=== PATIENT | female | born 1955 | race Asian ===

== ENCOUNTER 2021-08-05 07:08 | Outpatient (REF) | payer MEDICARE, SELFPAY ==
[2021-08-05 07:29] LABS: MANUAL DIFF FLAG NO
[2021-08-05 08:07] LABS: Basophils Percent Auto 0.7 % (0-2); Eosinophils Absolute Auto 0.1 X10*3/uL (0.0-0.4); Eosinophils Percent Auto 1.8 % (0-4); Hematocrit 38.2 % (37.0-47.0); Hemoglobin 12.4 g/dl (12.0-16.0); Imm Gran Abs Auto 0.01 X10*3/uL (0.00-0.03); Imm Gran Pct Auto 0.2 % (0.0-0.4); Lymphocytes Percent Auto 44.1 % (20-40); Mean Corpuscular HGB Conc 32.5 g/dl (31.0-35.0); Mean Corpuscular Hemoglobin 30.9 pg (27.0-33.0); Mean Corpuscular Volume 95.3 fL (80.0-98.0); Mean Platelet Volume 9.8 fL (9.4-12.3); Monocytes Absolute Auto 0.5 X10*3/uL (0.1-1.2); Monocytes Percent Auto 10.7 % (2-11); Neutrophils Absolute Auto 1.9 x10*3/uL (2.0-8.3); Neutrophils Percent Auto 42.5 % (45-73); Platelet Count 241 X10*3/uL (160-400); Red Blood Count 4.01 X10*6/uL (4.20-5.50); White Blood Count 4.6 X10*3/uL (4.8-10.8)
[2021-08-05 08:15] LABS: Appearance Urine CLEAR; Color Urine YELLOW; Glucose Urine UA NEG (NEG); Leukocyte Esterase Urine NEG (NEG); Nitrite Urine NEG (NEG); Specific Gravity - Urine <= 1.005 (1.005-1.025); UACC Culture Trigger NO; Urine Blood 1+ (NEG); Urine Ketones NEG (NEG); Urine Protein NEG (NEG-TRACE)
[2021-08-05 08:38] LABS: Alanine Aminotransferase 21 U/L (0-31); Albumin Level 4.2 g/dL (3.5-5.0); Alkaline Phosphatase 67 U/L (39-117); Anion Gap 12 (12-20); Aspartate Amino Transferase 28 U/L (5-31); Bilirubin Total 0.5 mg/dL (0.0-1.0); Blood Urea Nitrogen 16 mg/dL (9-16); Calcium 9.7 mg/dL (8.4-10.2); Carbon Dioxide 27 mmol/L (22-29); Chloride 104 mmol/L (96-108); Cholesterol 177 mg/dL; Estimated Glomerular Filt Rate 58; Glucose Fasting 105 mg/dL (60-99); HDL Cholesterol 61 mg/dL; LDL Cholesterol Calculated 101 mg/dl; Potassium 4.2 mmol/L (3.3-5.1); Sodium 139 mmol/L (135-145); Total Protein 7.3 g/dL (6.5-8.0); Triglycerides 76 mg/dL
[2021-08-05 08:41] LABS: Bacteria Urine TRACE /LPF; WBC Urine 0-2 /HPF (0-4)
[2021-08-05 09:01] LABS: TSH reflex Free T4 3.11 uIU/mL (0.32-4.0); Vitamin D 25-OH Total 50.3 ng/mL (>30)
== END 2021-08-05 07:09 | disposition home or self-care (01) ==
LOC: HO.LAB 07:08
PROVIDERS: PCP Internal Medicine; Visit Provider Internal Medicine
DX: E78.00 Pure hypercholesterolemia, unspecified (principal); E55.9 Vitamin D deficiency, unspecified; I10 Essential (primary) hypertension
CPT/HCPCS: 36415; 80053; 80061; 81001; 81003; 82306; 84443; 85025

== ENCOUNTER 2021-10-15 12:45 | Outpatient (REF) | payer MEDICARE, SELFPAY ==
--- NOTE | ~2021-10-15 | MM_ITS ---
EXAMINATION: MM SCREENING DIGITAL BREAST TOMOSYNTHESIS, BILATERAL CLINICAL INFORMATION: Screening. Asymptomatic. The lifetime risk of breast cancer based on the Tyrer-Cuzick Model is 3%. COMPARISON: Mammography: 02/02/2019, 01/23/2018, 11/19/2016 TECHNIQUE: Digital breast tomosynthesis is performed in both the craniocaudal and mediolateral oblique views along with computer-aided detection (CAD). Synthesized 2D images are generated from the tomosynthesis. FINDINGS: There are scattered areas of fibroglandular density (ACR BI-RADS breast composition Category b). There are no significant masses, abnormal calcifications, or other abnormalities. Parenchymal pattern is similar to prior studies. The axilla are unremarkable. No significant changes. MM/MM tomosynthesis screening BI IMPRESSION: No mammographic evidence of malignancy. ASSESSMENT: BI-RADS 1: Negative RECOMMENDATION: Routine annual mammography screening. This patient's information was entered into a reminder system with a target due date for their next mammogram.
--- NOTE | ~2021-10-15 | MM_ITS ---
EXAMINATION: BONE DENSITOMETRY CLINICAL INDICATION: Osteoporosis. COMPARISON: Previous BD dated 09/24/2018 and baseline BD dated 02/12/2007. TECHNIQUE: Using a [employer] DXA System (software version: 13.1) manufactured by [employer], dual-energy x-ray absorptiometry was performed of the lumbar spine and left hip. The images are of good technical quality. Summary results are attached. FINDINGS: AP SPINE L1-L3 (excluding L4): The data of L1-L4 has been changed to exclude the L4 vertebral body, because degenerative changes at this level may cause overestimation of lumbar spine density. Current: BMD 0.836 g/cm2, Z-score -0.7, T-score -2.8, osteoporosis, 8.1% decrease from previous, 0.2% increase from baseline (<5% change is not significant). Prior: BMD 0.910 g/cm2. Baseline: BMD 0.834 g/cm2. LEFT FEMUR, NECK: Current: BMD 0.760 g/cm2, Z-score -0.2, T-score -2.0, osteopenia. Prior: BMD 0.750 g/cm2. Baseline: BMD 0.776 g/cm2. LEFT FEMUR, TOTAL: Current: BMD 0.852 g/cm2, Z-score 0.4, T-score -1.2, osteopenia, 1.3% decrease from previous, 0.8% decrease from baseline (<5% change is not significant). Prior: BMD 0.863 g/cm2. Baseline: BMD 0.859 g/cm2. IDENTIFIED RISK FACTORS: Menopause, osteoporosis. HISTORY OF FRACTURE: None listed. MEDICATIONS: Calcium, vitamin D. MM/XR DEXA axial skeleton IMPRESSION: 1. DIAGNOSIS: Osteoporosis based on the lowest T-score value of -2.8 in the lumbar spine applying World Health Organization criteria. 2. 10-YEAR FRACTURE RISK PREDICTION, FRAX: According to the guidelines, FRAX calculation should only be performed on patients in the osteopenia bone density category. Therefore, FRAX was not performed on this patient. 3. Treatment Recommendations: NOF guidelines recommend consideration for treatment in postmenopausal women and men age 50 and older presenting with the following: -A hip or vertebral (clinical or morphometric) fracture. -T-score less than or equal to -2.5 at the femoral neck or spine after appropriate evaluation to exclude secondary causes. -Low bone mass at the hip or spine and a 10-year fracture probability by FRAX of greater than or equal to 3% for hip fracture or greater than or equal to 20% for major osteoporotic fracture based on the [place] adapted WHO algorithm. 4. Other Recommendations: All treatment decisions require clinical judgment and consideration of individual patient factors, including patient preferences, comorbidities, previous drug use, risk factors not captured in the FRAX model (e.g. frailty, falls, vitamin D deficiency, increased bone turnover, interval significant decline in bone density) and possible under or overestimation of fracture risk by FRAX. Additional medical evaluation for secondary cause of low bone mineral density may be appropriate. FUTURE SCAN RECOMMENDATION: People with diagnosed cases of osteoporosis or at high risk for fracture should have regular bone mineral density tests. For patients eligible for Medicare, routine testing is allowed once every 2 years. The testing frequency can be increased to one year for patients who have rapidly progressing disease, those who are receiving or discontinuing medical therapy to restore bone mass, or have additional risk factors.
== END 2021-10-15 12:46 | disposition home or self-care (01) ==
LOC: HO.MAMMO 12:45
PROVIDERS: Visit Provider Internal Medicine
DX: Z12.31 Encounter for screening mammogram for malignant neoplasm of breast (principal); M81.0 Age-related osteoporosis without current pathological fracture; Z78.0 Asymptomatic menopausal state
CPT/HCPCS: 77063; 77067; 77080

== ENCOUNTER 2021-12-28 09:07 | Outpatient (REF) | payer MEDICARE, SELFPAY ==
[2021-12-28 09:29] LABS: MANUAL DIFF FLAG NO
[2021-12-28 09:38] LABS: Basophils Percent Auto 0.8 % (0-2); Eosinophils Absolute Auto 0.1 X10*3/uL (0.0-0.4); Eosinophils Percent Auto 2.3 % (0-4); Hematocrit 38.4 % (37.0-47.0); Hemoglobin 12.9 g/dl (12.0-16.0); Imm Gran Abs Auto 0.01 X10*3/uL (0.00-0.03); Imm Gran Pct Auto 0.3 % (0.0-0.4); Lymphocytes Absolute Auto 1.8 X10*3/uL (1.2-4.9); Lymphocytes Percent Auto 45.2 % (20-40); Mean Corpuscular HGB Conc 33.6 g/dl (31.0-35.0); Mean Corpuscular Hemoglobin 31.5 pg (27.0-33.0); Mean Corpuscular Volume 93.9 fL (80.0-98.0); Mean Platelet Volume 9.2 fL (9.4-12.3); Monocytes Absolute Auto 0.3 X10*3/uL (0.1-1.2); Monocytes Percent Auto 7.6 % (2-11); Neutrophils Absolute Auto 1.7 x10*3/uL (2.0-8.3); Neutrophils Percent Auto 43.8 % (45-73); Platelet Count 275 X10*3/uL (160-400); Red Blood Count 4.09 X10*6/uL (4.20-5.50); Red Cell Distribution Width 11.9 % (11.0-16.0); White Blood Count 3.9 X10*3/uL (4.8-10.8)
[2021-12-28 10:11] LABS: Appearance Urine Clear; Color Urine Yellow; Glucose Urine UA Negative (Negative); Leukocyte Esterase Urine Negative (Negative); Nitrite Urine Negative (Negative); Urine Blood Trace (Negative); Urine Ketones Negative (Negative); Urine Protein Negative (Neg-Trace)
[2021-12-28 10:17] LABS: Bacteria Urine None Seen (None Seen); Hyaline Casts Urine 0-2 /LPF (0-2); Squamous Epithelial Cell Urine 0-2 /HPF (0-2); WBC Urine 0-5 /HPF (0-5)
[2021-12-28 10:27] LABS: Estimated Average Glucose 117 mg/dL; Hemoglobin A1c % 5.7 %
[2021-12-28 10:30] LABS: Alanine Aminotransferase 19 U/L (0-31); Albumin Level 4.7 g/dL (3.5-5.0); Alkaline Phosphatase 69 U/L (39-117); Anion Gap 16 (12-20); Aspartate Amino Transferase 28 U/L (5-31); Bilirubin Total 0.5 mg/dL (0.0-1.0); Blood Urea Nitrogen 16 mg/dL (9-16); Calcium 9.6 mg/dL (8.4-10.2); Carbon Dioxide 27 mmol/L (22-29); Chloride 103 mmol/L (96-108); Cholesterol 189 mg/dL; Estimated Glomerular Filt Rate 57; Glucose Fasting 112 mg/dL (60-99); HDL Cholesterol 71 mg/dL; LDL Cholesterol Calculated 105 mg/dl; Sodium 142 mmol/L (135-145); Total Protein 8.1 g/dL (6.5-8.0); Triglycerides 65 mg/dL
[2021-12-28 11:10] LABS: TSH reflex Free T4 2.55 uIU/mL (0.32-4.0); Vitamin D 25-OH Total 64.8 ng/mL (>30)
== END 2021-12-28 09:08 | disposition home or self-care (01) ==
LOC: HO.LAB 09:07
PROVIDERS: PCP Internal Medicine; Visit Provider Internal Medicine
DX: Z00.00 Encounter for general adult medical examination without abnormal findings (principal); E55.9 Vitamin D deficiency, unspecified; M81.0 Age-related osteoporosis without current pathological fracture; E78.00 Pure hypercholesterolemia, unspecified; R73.01 Impaired fasting glucose
CPT/HCPCS: 36415; 80053; 80061; 81001; 81003; 82306; 83036; 84443; 85025

== ENCOUNTER 2022-03-31 | Outpatient (REF) | payer MEDICARE, SELFPAY ==
[2022-04-01 13:18] LABS: Influenza A PCR NEGATIVE (Negative); Influenza B PCR NEGATIVE (Negative); Resp Syncy Virus RNA Qual PCR NEGATIVE (Negative); SARS COV2 PCR INHOUSE NEGATIVE (Negative)
== END 2022-03-31 00:01 | disposition home or self-care (01) ==
LOC: HO.LNP
PROVIDERS: Visit Provider Nurse Practitioner Family
DX: Z20.822 Contact with and (suspected) exposure to COVID-19 (principal); R09.89 Other specified symptoms and signs involving the circulatory and respiratory systems
CPT/HCPCS: 0241U

== ENCOUNTER 2022-04-25 07:45 | Outpatient (REF) | payer MEDICARE, SELFPAY ==
[2022-04-25 08:42] LABS: Alanine Aminotransferase 16 U/L (0-31); Albumin Level 4.6 g/dL (3.5-5.0); Alkaline Phosphatase 71 U/L (39-117); Anion Gap 10 (12-20); Aspartate Amino Transferase 24 U/L (5-31); Bilirubin Total 0.6 mg/dL (0.0-1.0); Blood Urea Nitrogen 20 mg/dL (9-16); Calcium 10.1 mg/dL (8.4-10.2); Carbon Dioxide 27 mmol/L (22-29); Chloride 105 mmol/L (96-108); Cholesterol 219 mg/dL; Estimated Glomerular Filt Rate 54; Glucose Fasting 109 mg/dL (60-99); HDL Cholesterol 70 mg/dL; LDL Cholesterol Calculated 133 mg/dl; Potassium 4.2 mmol/L (3.3-5.1); Sodium 138 mmol/L (135-145); Total Protein 7.9 g/dL (6.5-8.0); Triglycerides 84 mg/dL
[2022-04-25 10:05] LABS: Appearance Urine Clear; Color Urine Yellow; Glucose Urine UA Negative (Negative); Leukocyte Esterase Urine Negative (Negative); Nitrite Urine Negative (Negative); UMIC TRIGGER UACC YES; Urine Blood Small (1+) (Negative); Urine Ketones Negative (Negative); Urine Protein Negative (Neg-Trace)
[2022-04-25 10:19] LABS: Bacteria Urine None Seen (None Seen); Hyaline Casts Urine 0-2 /LPF (0-2); RBC Urine 0-2 /HPF (0-2); Squamous Epithelial Cell Urine 0-2 /HPF (0-2); WBC Urine 0-5 /HPF (0-5)
== END 2022-04-25 07:46 | disposition home or self-care (01) ==
LOC: HO.LAB 07:45
PROVIDERS: PCP Internal Medicine; Visit Provider Internal Medicine
DX: E78.00 Pure hypercholesterolemia, unspecified (principal); I10 Essential (primary) hypertension
CPT/HCPCS: 36415; 80053; 80061; 81001; 81003

== ENCOUNTER 2022-09-02 07:53 | Outpatient (REF) | payer MEDICARE, SELFPAY ==
[2022-09-02 08:04] LABS: MANUAL DIFF FLAG NO
[2022-09-02 08:38] LABS: Basophils Absolute Auto 0.1 X10*3/uL (0.0-0.2); Basophils Percent Auto 1.4 % (0-2); Eosinophils Absolute Auto 0.3 X10*3/uL (0.0-0.4); Eosinophils Percent Auto 5.1 % (0-4); Hematocrit 39.6 % (37.0-47.0); Hemoglobin 12.8 g/dl (12.0-16.0); Imm Gran Abs Auto 0.01 X10*3/uL (0.00-0.03); Imm Gran Pct Auto 0.2 % (0.0-0.4); Lymphocytes Absolute Auto 2.1 X10*3/uL (1.2-4.9); Lymphocytes Percent Auto 40.9 % (20-40); Mean Corpuscular HGB Conc 32.3 g/dl (31.0-35.0); Mean Corpuscular Hemoglobin 30.3 pg (27.0-33.0); Mean Corpuscular Volume 93.6 fL (80.0-98.0); Mean Platelet Volume 9.4 fL (9.4-12.3); Monocytes Absolute Auto 0.4 X10*3/uL (0.1-1.2); Monocytes Percent Auto 6.8 % (2-11); Neutrophils Absolute Auto 2.4 x10*3/uL (2.0-8.3); Neutrophils Percent Auto 45.6 % (45-73); Platelet Count 264 X10*3/uL (160-400); Red Blood Count 4.23 X10*6/uL (4.20-5.50); Red Cell Distribution Width 12.4 % (11.0-16.0); White Blood Count 5.1 X10*3/uL (4.8-10.8)
[2022-09-02 08:40] LABS: Appearance Urine Clear; Color Urine Yellow; Glucose Urine UA Negative (Negative); Leukocyte Esterase Urine Negative (Negative); Nitrite Urine Negative (Negative); PH 6.5 (5.0-9.0); Specific Gravity - Urine <= 1.005 (1.005-1.025); UMIC TRIGGER UACC YES; Urine Blood Trace (Negative); Urine Ketones Negative (Negative); Urine Protein Negative (Neg-Trace)
[2022-09-02 08:46] LABS: Bacteria Urine None Seen (None Seen); Hyaline Casts Urine 0-2 /LPF (0-2); RBC Urine 0-2 /HPF (0-2); Squamous Epithelial Cell Urine 0-2 /HPF (0-2); WBC Urine 0-5 /HPF (0-5)
[2022-09-02 11:01] LABS: Estimated Average Glucose 126 mg/dL
[2022-09-02 13:03] LABS: TSH reflex Free T4 3.81 uIU/mL (0.32-4.0); Vitamin D 25-OH Total 51.8 ng/mL (>30)
[2022-09-02 13:05] LABS: Anion Gap 12 (12-20)
[2022-09-02 13:10] LABS: Alanine Aminotransferase 34 U/L (0-31); Albumin Level 4.3 g/dL (3.5-5.0); Alkaline Phosphatase 71 U/L (39-117); Aspartate Amino Transferase 35 U/L (5-31); Bilirubin Total 0.9 mg/dL (0.0-1.0); Blood Urea Nitrogen 17 mg/dL (9-16); Calcium 9.6 mg/dL (8.4-10.2); Carbon Dioxide 27 mmol/L (22-29); Chloride 107 mmol/L (96-108); Cholesterol 218 mg/dL; Estimated Glomerular Filt Rate > 60; Glucose Fasting 97 mg/dL (60-99); HDL Cholesterol 76 mg/dL; LDL Cholesterol Calculated 125 mg/dl; Sodium 142 mmol/L (135-145); Total Protein 7.1 g/dL (6.5-8.0); Triglycerides 85 mg/dL
== END 2022-09-02 07:54 | disposition home or self-care (01) ==
LOC: HO.LAB 07:53
PROVIDERS: PCP Internal Medicine; Visit Provider Internal Medicine
DX: R73.01 Impaired fasting glucose (principal); I10 Essential (primary) hypertension; E55.9 Vitamin D deficiency, unspecified; E78.00 Pure hypercholesterolemia, unspecified
CPT/HCPCS: 36415; 80053; 80061; 81001; 82306; 83036; 84443; 85025

== ENCOUNTER 2022-11-04 08:51 | Outpatient (AMB) | payer MEDICARE, SELFPAY ==
--- NOTE | 2022-11-04 08:55 | MHC.OFFWIV ---
Intake Vital Signs 11/04/22 09:08 BP 120/80 Blood Pressure Location Rt brachial Position Sitting Pulse 100 Pulse Source Pulse Oximeter Pulse Oximetry (%) 98 Oxygen Delivery Method Room Air Intake Visit Reasons: Est/stress/confusion? Intake Note: Patient here for confusion and has been very sentimental and crying very easily. Patient Tobacco Use Status: Never used Tobacco Allergies No Known Allergies [No Known Allergies*] Allergy (Verified 11/04/22 09:59) Medication List - Last Reconciled 11/04/22 by Jono Smart MD atorvastatin 20 mg PO DAILY 90 days benzonatate 200 mg PO BID PRN omeprazole 20 mg PO DAILY 90 days Do you need a note to return to daycare/school/sports/work: No HPI Est/stress/confusion? HPI Details 67-year-old female presents to the office for a sick visit. Patient is having a dispute with a [employer] regarding a transaction. She has come to the office alone for this visit. Patient wants to rule out any mental deficiencies she has. This has been triggered after the disputed bank transaction. She is a and is living independently. [facility] Medical History Degenerative disc disease, cervical Depression GERD (gastroesophageal reflux disease) Insomnia Lumbar degenerative disc disease Osteoporosis Pure hypercholesterolemia Surgical History History of colonoscopy (~10/06/18) History of vaginal surgery Social History Housing: House Alcohol intake: current Alcohol intake frequency: holidays/special occasions only Alcohol type: wine Patient Tobacco Use Status: Never used Tobacco e-Cigarette/Vaping Use: Never Used Second Hand Smoke Exposure: No service: No Current occupational status: employed Cognitive needs: No Hearing needs: No Vision needs: No Physical Exam Vital Signs: Last Vital Signs Pulse 100 11/04/22 09:08 BP 120/80 11/04/22 09:08 Pulse Ox 98 11/04/22 09:08 Oxygen Delivery Method Room Air 11/04/22 09:08 Const General: cooperative, healthy appearing, comfortable, no acute distress, well developed, alert and awake Nutritional Appearance: well nourished Orientation/consciousness: patient oriented x3 Limitations: no limitations HEENT Head: Yes normal to inspection Eyes General: appearance normal, both eyes and all related structures Neck Neck: Yes normal visual inspection Chest Chest palpation & inspection: normal palpation of entire chest wall Resp Effort & Inspection: normal respiratory effort Neuro General: patient oriented x3 Assessment & Plan Assessment & Plan (1) Anxiety: Code(s): F41.9 - Anxiety disorder, unspecified Plan: Patient is currently conscious, coherent and acting appropriately. I advised her to follow-up with her primary care for anxiety workup. Coding Level of Care Code Est Pt Level 3 (36517) Diagnoses Anxiety F41.9
[2022-11-04 09:08] VITALS: BP 120/80; PULSE 100; O2SAT 98
== END 2022-11-04 10:30 | disposition home or self-care (01) ==
PROVIDERS: PCP Internal Medicine; Visit Provider Internal Medicine
DX: F41.9 Anxiety disorder, unspecified (principal)
CPT/HCPCS: 99213

== ENCOUNTER 2022-11-13 11:15 | Outpatient (REF) | payer MEDICARE, SELFPAY ==
--- NOTE | ~2022-11-13 | MM_ITS ---
EXAMINATION: MM SCREENING DIGITAL BREAST TOMOSYNTHESIS, BILATERAL CLINICAL INFORMATION: Screening. Asymptomatic. The lifetime risk of breast cancer based on the Tyrer-Cuzick Model is 3.7%. COMPARISON: Mammography: This study is compared with prior exams dating back to 2018. TECHNIQUE: Digital breast tomosynthesis is performed in both the craniocaudal and mediolateral oblique views along with computer-aided detection (CAD). Synthesized 2D images are generated from the tomosynthesis. FINDINGS: There are scattered areas of fibroglandular density (ACR BI-RADS breast composition Category b). There are no significant masses, abnormal calcifications, or other abnormalities. MM/MM tomosynthesis screening BI IMPRESSION: No mammographic evidence of malignancy. ASSESSMENT: BI-RADS BI-RADS 1 - Negative RECOMMENDATION: Routine annual mammography screening. 1 year F/U This examination should not preclude the clinical evaluation of a suspicious palpable abnormality. This patient's information was entered into a reminder system with a target due date for their next mammogram.
== END 2022-11-13 11:16 | disposition home or self-care (01) ==
LOC: HO.MAMMO 11:15
PROVIDERS: PCP Internal Medicine; Visit Provider Internal Medicine
DX: Z12.31 Encounter for screening mammogram for malignant neoplasm of breast (principal)
CPT/HCPCS: 77063; 77067

== ENCOUNTER → 2022-11-13 11:30 | Outpatient (BNV) | payer MEDICARE, SELFPAY | PROVIDERS: PCP Internal Medicine; Visit Provider Radiology Diagnostic Radiology | DX: Z12.31 Encounter for screening mammogram for malignant neoplasm of breast (principal) | CPT/HCPCS: 77063; 77067 ==

== ENCOUNTER 2022-12-30 08:55 | Outpatient (REF) | payer MEDICARE, SELFPAY ==
[2022-12-30 09:18] LABS: MANUAL DIFF FLAG NO
[2022-12-30 10:00] LABS: Basophils Percent Auto 0.9 % (0-2); Eosinophils Absolute Auto 0.1 X10*3/uL (0.0-0.4); Eosinophils Percent Auto 1.7 % (0-4); Hematocrit 38.1 % (37.0-47.0); Hemoglobin 12.4 g/dl (12.0-16.0); Imm Gran Abs Auto 0.01 X10*3/uL (0.00-0.03); Imm Gran Pct Auto 0.2 % (0.0-0.4); Lymphocytes Percent Auto 42.7 % (20-40); Mean Corpuscular HGB Conc 32.5 g/dl (31.0-35.0); Mean Corpuscular Hemoglobin 31.1 pg (27.0-33.0); Mean Corpuscular Volume 95.5 fL (80.0-98.0); Mean Platelet Volume 9.5 fL (9.4-12.3); Monocytes Absolute Auto 0.4 X10*3/uL (0.1-1.2); Monocytes Percent Auto 7.7 % (2-11); Neutrophils Absolute Auto 2.2 x10*3/uL (2.0-8.3); Neutrophils Percent Auto 46.8 % (45-73); Platelet Count 318 X10*3/uL (160-400); Red Blood Count 3.99 X10*6/uL (4.20-5.50); Red Cell Distribution Width 12.3 % (11.0-16.0); White Blood Count 4.7 X10*3/uL (4.8-10.8)
[2022-12-30 10:19] LABS: Estimated Average Glucose 114 mg/dL; Hemoglobin A1c % 5.6 % (<6.0)
[2022-12-30 10:52] LABS: Appearance Urine Clear; Color Urine Yellow; Glucose Urine UA Negative (Negative); Leukocyte Esterase Urine Negative (Negative); Nitrite Urine Negative (Negative); PH 6.5 (5.0-9.0); Specific Gravity - Urine 1.015 (1.005-1.025); Urine Blood Negative (Negative); Urine Ketones Negative (Negative); Urine Protein Negative (Neg-Trace)
[2022-12-30 12:03] LABS: Alanine Aminotransferase 36 U/L (0-31); Albumin Level 4.2 g/dL (3.5-5.0); Alkaline Phosphatase 69 U/L (39-117); Anion Gap 9 (12-20); Aspartate Amino Transferase 32 U/L (5-31); Bilirubin Total 0.8 mg/dL (0.0-1.0); Blood Urea Nitrogen 16 mg/dL (9-16); Calcium 9.4 mg/dL (8.4-10.2); Carbon Dioxide 28 mmol/L (22-29); Chloride 107 mmol/L (96-108); Cholesterol 186 mg/dL (<200); Estimated Glomerular Filt Rate > 60; Glucose Fasting 95 mg/dL (60-99); HDL Cholesterol 67 mg/dL (>40); LDL Cholesterol Calculated 109 mg/dL (<100); Potassium 3.8 mmol/L (3.3-5.1); Sodium 140 mmol/L (135-145); Total Protein 7.4 g/dL (6.5-8.0); Triglycerides 54 mg/dL (<150)
[2022-12-30 12:09] LABS: TSH reflex Free T4 2.41 uIU/mL (0.32-4.0)
[2022-12-30 15:06] LABS: Vitamin D 25-OH Total 58.6 ng/mL (>30)
== END 2022-12-30 08:56 | disposition home or self-care (01) ==
LOC: HO.LAB 08:55
PROVIDERS: PCP Internal Medicine; Visit Provider Internal Medicine
DX: I10 Essential (primary) hypertension (principal); E55.9 Vitamin D deficiency, unspecified; R73.01 Impaired fasting glucose; R30.0 Dysuria; E78.00 Pure hypercholesterolemia, unspecified
CPT/HCPCS: 36415; 80053; 80061; 81003; 82306; 83036; 84443; 85025

== ENCOUNTER 2023-01-02 16:36 | Outpatient (AMB) | payer MEDICARE, SELFPAY ==
[2023-01-02 16:53] VITALS: BP 110/80; PULSE 84; O2SAT 97; BMI 20.4
--- NOTE | 2023-01-02 16:53 | MHC.PC.OV ---
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 Accompanied by: Self / Same As Patient Allergies No Known Allergies [No Known Allergies*] Allergy (Verified 01/02/23 17:04) Medication List - Last Reconciled 01/02/23 by Rick Hudson MD atorvastatin 20 mg PO DAILY 90 days benzonatate 200 mg PO BID PRN omeprazole 20 mg PO DAILY 90 days Tobacco use date assessed: 01/02/23 Fall risk assessment: No Falls in past year Last assessed Fall Risk: 01/02/23 Dental Screening Dental Screen Date: 01/02/23 Did you have a dental visit in the last 12 months?: Yes Did you have a dental problem in the last 6 months where you did not have access to dental care?: No Was dental information given to patient?: Patient has dentist HPI Annual Exam HPI Details Patient comes in today for her annual physical examination States that she has been under a lot of stress lately due to some ongoing dispute over a bank transaction a couple of months ago wherein she deposited around $1000 of her hard-earned money but the bank supposedly does not seem to have any record of the said transaction and her money was never found States that she was led to believe that she may be starting to become forgetful and may need to seek medical help for her memory as well as her supposed increasing anxiety but she does not believe so States that she's had no issues with memory loss and outside of the occasional forgetfulness, she does not feel that she is starting to become impaired with her memory or cognition Admits that she feels stressed out about the whole process and her lost wages/money but does not feel that she is so anxious or depressed that she needs to start taking some medication to help with her symptoms States that she feels okay otherwise and denies any headaches or dizziness Denies any chest pains, no SOB No nausea/vomiting, no abdominal pain No change in bowel habits noted Denies any acute urinary symptoms Had her follow up labs done a few days ago - to discuss her results [facility] Medical History Depression Insomnia Osteoporosis Degenerative disc disease, cervical Lumbar degenerative disc disease GERD (gastroesophageal reflux disease) Pure hypercholesterolemia Surgical History History of colonoscopy (~10/06/18) History of vaginal surgery Social History Housing: House Alcohol intake: current Alcohol intake frequency: holidays/special occasions only Alcohol type: wine Patient Tobacco Use Status: Never used Tobacco e-Cigarette/Vaping Use: Never Used Second Hand Smoke Exposure: No service: No Current occupational status: employed Cognitive needs: No Hearing needs: No Vision needs: No Questionnaire PHQ-9 Over the last 2 weeks, how often have you been bothered by any of the following problems? 1. Little interest or pleasure in doing things: not at all 2. Feeling down, depressed, or hopeless: not at all 3. Trouble falling or staying asleep, or sleeping too much: not at all 4. Feeling tired or having little energy: not at all 5. Poor appetite or overeating: not at all 6. Feeling bad about yourself - or that you are a failure or have let yourself or your family down: not at all 7. Trouble concentrating on things, such as reading the newspaper or watching television: not at all 8. Moving or speaking so slowly that other people could have noticed. Or the opposite - being so fidgety or restless that you have been moving around a lot more than usual: not at all 9. Thoughts that you would be better off or of hurting yourself in some way: not at all Total score: 0 Depression Screening Interpretation: Negative 31206 - PHQ-9 Billing: Yes Source: Developed by Drs. Ignacio Cloud, Bess Owen, Ottoniel Cardona and colleagues, with an educational demian from [email or web address]. Thrive Questionnaire Date Thrive assessed: 01/02/23 I am a: Patient What is your living situation today?: I have a steady place to live Within the past 12 months, did the food you bought not last and you didn't have the money to get more?: Never true Within the past 12 months, did you worry whether your food would run out before you got money to buy more?: Never true Do you have trouble paying for medicines?: No Do you have trouble getting transportation to medical appointments?: No Do you have trouble paying your heating and electricity bill?: No Do you have trouble taking care of your child, family member or friend?: No Do you have trouble with day-to-day activities such as bathing, preparing meals, shopping, managing finances, etc.?: No Are you currently unemployed and looking for a job?: No Are you interested in more education?: No Please select the resources that you would like help with: None Currently or been in a relationship where the following occur: no concerns reported AUDIT C Alcohol Use Questionnaire (AUDIT-C) 1. How often do you have a drink containing alcohol?: Never 3. How often do you have six or more drinks on one occasion?: Never Total Score: 0 Score Reviewed/Action Taken: Yes LOR-7 AMB Questionnaire LOR-7 Date LOR - 7 assessed: 01/02/23 Feeling nervous, anxious, or on edge: 0 = Not at all Not being able to stop or control worryin = Not at all Worrying too much about different things: 0 = Not at all Trouble relaxin = Not at all Being so restless that it is hard to sit still: 0 = Not at all Becoming easily annoyed or irritable: 0 = Not at all Feeling afraid as if something awful might happen: 0 = Not at all Total LOR-7 score (0-4 normal; 5-9 mild; 10-14 moderate; 15-21 severe): 0 Source: Developed by Drs. Ignacio Cloud, Bess Owen, Ottoniel Cardona and colleagues, with an educational demian from [email or web address]. Review of Systems Const Denies chills, Denies fatigue, Denies fever(s), Denies headache(s) and Denies malaise Eyes Denies blurry vision, Denies change in vision, Denies irritation and Denies itchy eyes ENT Denies dysphagia, Denies dizziness, Denies otalgia, Denies headache(s), Denies nasal congestion, Denies neck pain, Denies odynophagia, Denies sinus pain and Denies sore throat Card Denies chest pain, Denies rapid heart rate, Denies irregular heart rhythm, Denies palpitations and Denies dyspnea Resp Denies chest congestion, Denies cough, Denies dyspnea and Denies wheezing GI Denies abdominal pain, Denies bloating, Denies constipation, Denies dysphagia, Denies heartburn, Denies diarrhea, Denies nausea, Denies odynophagia and Denies vomiting Denies hematuria, Denies urinary frequency, Denies dysuria, Denies urinary incontinence and Denies urinary urgency Musc Denies back pain, Denies arthralgias, Denies joint swelling, Denies muscle weakness and Denies neck pain Skin/Breast Denies breast pain, Denies breast mass, Denies change in pigmentation, Denies lesions, Denies rash and Denies unusual bruising Neuro Denies behavioral changes, Denies confusion, Denies dizziness, Denies headache(s), Denies memory loss and Denies paresthesias Psych Reports anxiety (see HPI), Denies behavioral changes, Denies confusion, Denies depression and Denies memory loss Endo Denies fatigue and Denies palpitations Trae/Lymph Denies easy bruising Aller/Immun Denies itchy eyes and Denies wheezing Physical exam (Primary Care) Vital Signs: Last Vital Signs Pulse 84 01/02/23 16:53 BP 110/80 01/02/23 16:53 Pulse Ox 97 01/02/23 16:53 Oxygen Delivery Method Room Air 01/02/23 16:53 BMI result Body Mass Index 20.4 Tobacco/Smoking Status: Tobacco use Status Tobacco use date assessed 01/02/23 01/02/23 16:59 Patient Tobacco Use Status Never used Tobacco 01/02/23 16:59 e-Cigarette/Vaping Use Never Used 01/02/23 16:59 PHQ-9: PHQ-9 Score PHQ-9: Total score 0 01/02/23 16:59 Depression Screening Interpretation: Negative Thrive Assessment: Date of Thrive Assessment Date Thrive assessed 01/02/23 01/02/23 16:59 Currently or been in a relationship where the following occur: no concerns reported Const General: no acute distress, alert and awake; No confusion Orientation/consciousness: patient oriented x3 and No confusion HENMT Head: Yes normocephalic and Yes atraumatic Ears: external ears normal, TM's normal bilaterally and EAC's normal General nose exam: No nasal discharge present Face and sinus: Yes normal facial exam and Yes sinuses nontender Teeth and gingiva: dentition normal Throat: Yes posterior oropharynx normal and Yes tonsils normal (no TP congestion) Eyes Eyelids: Yes eyelids normal Conjunctivae: conjunctivae normal Pupils: Equal, round and reactive pupils present EOM: EOMs intact bilaterally Neck Neck: Yes no lymphadenopathy and Yes supple Thyroid: Thyroid normal Resp Auscultation: clear to auscultation bilaterally, no rales and no wheezes Cardio Rate: regular rate Rhythm: regular rhythm Heart sounds: no murmurs GI Palpation (GI): Soft to palpation, nontender and No hepatosplenomegaly present Auscultation: normal bowel sounds General: Yes no CVA tenderness Back/Spine/Pelvis Back: no CVA tenderness Thoracic/Lumbar Spine: thoracic and lumbar spine normal to inspection Skin Lesions: no lesions Rashes: no rashes Neuro General: patient oriented x3, moves all extremities, no focal motor deficits, CN's II-XI intact bilaterally and No confusion Cranial nerves: Yes Equal, round and reactive pupils present Cognition (Neuro): normal cognition Gait exam (Neuro): Normal gait present Extrem General: Yes no clubbing, cyanosis or edema Assessment and Plan Assessment & Plan (1) Annual physical exam: Code(s): Z00.00 - Encounter for general adult medical examination without abnormal findings Plan: Results of her labs done a few days ago reviewed and discussed with patient She is up-to-date with all of her cancer screenings - mammogram done in October 2022, BMD done in September 2021, colonoscopy done with Dr. Mireles in 2018 and will be due for repeat colonoscopy in 2028 (2) Pure hypercholesterolemia: Code(s): E78.00 - Pure hypercholesterolemia, unspecified Plan: Patient is advised that her cholesterol levels have improved from previous on her recent labs Reinforced low cholesterol diet Continue Atorvastatin 20 mg QD Will recheck her labs and fasting lipids in 4 months for follow up (3) Impaired fasting glucose: Code(s): R73.01 - Impaired fasting glucose Plan: Her HgbA1c has improved to 5.6% on her labs done a few days ago; FBS was normal Reinforced low carb/low calorie diet (4) GERD (gastroesophageal reflux disease): Code(s): K21.9 - Gastro-esophageal reflux disease without esophagitis Qualifiers: Esophagitis presence: without esophagitis Qualified Code(s): K21.9 - Gastro-esophageal reflux disease without esophagitis Plan: Dietary restrictions reinforced Continue Omeprazole 20 mg QD (5) Lumbar degenerative disc disease: Code(s): M51.36 - Other intervertebral disc degeneration, lumbar region Plan: Reinforced activity and weight-lifting restrictions (6) Degenerative disc disease, cervical: Code(s): M50.30 - Other cervical disc degeneration, unspecified cervical region Plan: States that her neck pain has been mostly manageable and she continues to do neck exercises and stretching that she was taught from physical therapy in the past on a regular basis (7) Osteoporosis: Comment: S/P Tx with Alendronate x 5 years Code(s): M81.0 - Age-related osteoporosis without current pathological fracture Qualifiers: Osteoporosis type: age-related Presence of current pathological fracture: without current pathological fracture Qualified Code(s): M81.0 - Age-related osteoporosis without current pathological fracture Plan: Repeat BMD done on 10/15/21 revealed (+) osteoporosis based on the lowest T-score value of -2.8 in the lumbar spine applying World Health Organization criteria. This is mostly unchanged from her BMD last done on 09/24/2018 and in March 2016 but cautioned that her lumbar spine BMD has declined by about 8% from previous Fall precautions and weight-lifting precautions reinforced Patient is encouraged to continue with her oral vitamin-D and calcium supplements daily and also to stay active and exercise regularly (8) Insomnia: Code(s): G47.00 - Insomnia, unspecified Qualifiers: Insomnia type: unspecified Qualified Code(s): G47.00 - Insomnia, unspecified Plan: Sleep hygiene reinforced Takes Trazodone 50 mg or OTC Melatonin 3 mg Q HS PRN (9) Anxiety: Code(s): F41.9 - Anxiety disorder, unspecified Plan: Patient feels that this is mostly related to her ongoing dispute regarding a previous transaction with her local bank but states that she has been able to cope and does not feel that she needs to be taking any Rx medication for her anxiety Adds that she does not feel that she has any significant memory loss or cognitive deficit that is impairing her or affecting her ADLs and daily routine as she still goes to work everyday and is independent with all of her ADLs and activities Plan Follow up in 4 months Coding Level of Care Code Est Pt Prev Care >65y(42850) Diagnoses Annual physical exam Z00.00 Pure hypercholesterolemia E78.00 Impaired fasting glucose R73.01 Gastroesophageal reflux disease without esophagitis K21.9 Esophagitis presence: without esophagitis Lumbar degenerative disc disease M51.36 Degenerative disc disease, cervical M50.30 Age-related osteoporosis without current pathological fracture M81.0 Osteoporosis type: age-related Presence of current pathological fracture: without current pathological fracture Insomnia, unspecified type G47.00 Insomnia type: unspecified Anxiety F41.9
== END 2023-01-02 17:33 | disposition home or self-care (01) ==
PROVIDERS: PCP Internal Medicine; Visit Provider Internal Medicine
DX: Z00.00 Encounter for general adult medical examination without abnormal findings (principal); K21.9 Gastro-esophageal reflux disease without esophagitis; F41.9 Anxiety disorder, unspecified; E78.00 Pure hypercholesterolemia, unspecified; R73.01 Impaired fasting glucose; M51.36 Other intervertebral disc degeneration, lumbar region; M50.30 Other cervical disc degeneration, unspecified cervical region; M81.0 Age-related osteoporosis without current pathological fracture; G47.00 Insomnia, unspecified
CPT/HCPCS: 99397

== ENCOUNTER 2023-05-19 08:59 | Outpatient (AMB) | payer MEDICARE, SELFPAY ==
[2023-05-19 09:01] VITALS: BP 118/70; PULSE 84; O2SAT 98; BMI 20.4
--- NOTE | 2023-05-19 09:01 | A.OFFPC_ITS ---
Vital Signs 05/19/23 09:01 Height 5 ft 3 in Weight 115 lb BMI 20.4 BP 118/70 Blood Pressure Location Lt brachial Position Sitting Pulse 84 Pulse Source Pulse Oximeter Pulse Oximetry (%) 98 Oxygen Delivery Method Room Air Intake Visit Reasons: 4 month f/u Travel Ot Required: No Accompanied by: Self / Same As Patient Allergies No Known Allergies [No Known Allergies*] Allergy (Verified 05/19/23 09:40) Medication List - Last Reconciled 05/19/23 by Rick Hudson MD atorvastatin 20 mg PO DAILY 90 days benzonatate 200 mg PO BID PRN omeprazole 20 mg PO DAILY 90 days Tobacco use date assessed: 05/19/23 Fall risk assessment: No Falls in past year Last assessed Fall Risk: 05/19/23 Dental Screening Dental Screen Date: 05/19/23 Did you have a dental visit in the last 12 months?: Yes Did you have a dental problem in the last 6 months where you did not have access to dental care?: No Was dental information given to patient?: Patient has dentist HPI 4 month f/u HPI Details Patient comes in today for her follow up visit States that she feels okay - just got back from vacationing in the [facility] about a week ago Relates that she came down with a cold and was experiencing symptoms of increased cough and congestion for the past 2 to 3 weeks but denies any increased SOB or fever States that she just kept taking OTC Nyquil PRN and feels that her symptoms are now finally starting to clear up although she still has some lingering cough every now and then She denies any fever or sore throat at present; denies any headaches or dizziness Denies any chest pains, no SOB No nausea/vomiting, no abdominal pain No change in bowel habits noted Was not able to get her follow up labs done prior to her appointment today Needs her Omeprazole Rx refilled PFSH Medical History Depression Insomnia Osteoporosis Degenerative disc disease, cervical Lumbar degenerative disc disease GERD (gastroesophageal reflux disease) Pure hypercholesterolemia Surgical History History of colonoscopy (~10/06/18) History of vaginal surgery Social History Housing: House Alcohol intake: current Alcohol intake frequency: holidays/special occasions only Alcohol type: wine Patient Tobacco Use Status: Never used Tobacco e-Cigarette/Vaping Use: Never Used Second Hand Smoke Exposure: No service: No Current occupational status: employed Cognitive needs: No Hearing needs: No Vision needs: No Questionnaire PHQ-9 Over the last 2 weeks, how often have you been bothered by any of the following problems? 1. Little interest or pleasure in doing things: not at all 2. Feeling down, depressed, or hopeless: not at all 3. Trouble falling or staying asleep, or sleeping too much: not at all 4. Feeling tired or having little energy: not at all 5. Poor appetite or overeating: not at all 6. Feeling bad about yourself - or that you are a failure or have let yourself or your family down: not at all 7. Trouble concentrating on things, such as reading the newspaper or watching television: not at all 8. Moving or speaking so slowly that other people could have noticed. Or the opposite - being so fidgety or restless that you have been moving around a lot more than usual: not at all 9. Thoughts that you would be better off or of hurting yourself in some way: not at all Total score: 0 Depression Screening Interpretation: Negative Depression Screening Done: Yes 51373 - PHQ-9 Billing: Yes Source: Developed by Drs. Ignacio Cloud, Bess Owen, Ottoniel Cardona and colleagues, with an educational demian from [employer]. Thrive Questionnaire Date Thrive assessed: 05/19/23 I am a: Patient What is your living situation today?: I have a steady place to live Within the past 12 months, did the food you bought not last and you didn't have the money to get more?: Never true Within the past 12 months, did you worry whether your food would run out before you got money to buy more?: Never true Do you have trouble paying for medicines?: No Do you have trouble getting transportation to medical appointments?: No Do you have trouble paying your heating and electricity bill?: No Do you have trouble taking care of your child, family member or friend?: No Do you have trouble with day-to-day activities such as bathing, preparing meals, shopping, managing finances, etc.?: No Are you currently unemployed and looking for a job?: No Are you interested in more education?: No Please select the resources that you would like help with: None Currently or been in a relationship where the following occur: no concerns reported THRIVE Score: 0 AUDIT C Alcohol Use Questionnaire (AUDIT-C) 1. How often do you have a drink containing alcohol?: Never 3. How often do you have six or more drinks on one occasion?: Never Total Score: 0 Score Reviewed/Action Taken: Yes LOR-7 AMB Questionnaire LOR-7 Date LOR - 7 assessed: 05/19/23 Feeling nervous, anxious, or on edge: 0 = Not at all Not being able to stop or control worryin = Not at all Worrying too much about different things: 0 = Not at all Trouble relaxin = Not at all Being so restless that it is hard to sit still: 0 = Not at all Becoming easily annoyed or irritable: 0 = Not at all Feeling afraid as if something awful might happen: 0 = Not at all Total LOR-7 score (0-4 normal; 5-9 mild; 10-14 moderate; 15-21 severe): 0 Source: Developed by Drs. Ignacio Cloud, Bess Owen, Ottoniel Cardona and colleagues, with an educational demian from [employer]. Review of Systems Const Denies chills, Denies fatigue, Denies fever(s) and Denies headache(s) ENT Denies dysphagia, Denies dizziness, Denies otalgia, Denies headache(s), Reports neck pain (on and off), Denies odynophagia, Denies sinus pain and Denies sore throat Card Denies chest pain, Denies palpitations and Denies dyspnea Resp Reports chest congestion (mild - feels that this is clearing up), Reports cough (on and off, non-productive), Denies dyspnea and Denies wheezing GI Denies abdominal pain, Denies constipation, Denies dysphagia, Denies heartburn, Denies diarrhea, Denies nausea, Denies odynophagia and Denies vomiting Denies difficulty voiding, Denies nocturia, Denies dysuria and Denies urinary urgency Musc Reports back pain (on and off) and Reports neck pain (on and off) Skin/Breast Denies rash Neuro Denies dizziness and Denies headache(s) Endo Denies fatigue and Denies palpitations Aller/Immun Denies wheezing Physical exam (Primary Care) Vital Signs: Last Vital Signs Pulse 84 05/19/23 09:01 BP 118/70 05/19/23 09:01 Pulse Ox 98 05/19/23 09:01 Oxygen Delivery Method Room Air 05/19/23 09:01 BMI result Body Mass Index 20.4 Tobacco/Smoking Status: Tobacco use Status Tobacco use date assessed 05/19/23 05/19/23 09:09 Patient Tobacco Use Status Never used Tobacco 05/19/23 09:09 e-Cigarette/Vaping Use Never Used 05/19/23 09:09 PHQ-9: PHQ-9 Score PHQ-9: Total score 0 05/19/23 09:09 Depression Screening Interpretation: Negative Thrive Assessment: Date of Thrive Assessment Date Thrive assessed 05/19/23 05/19/23 09:09 Currently or been in a relationship where the following occur: no concerns reported Const General: no acute distress and alert HENMT Ears: TM's normal bilaterally and EAC's normal Throat: Yes posterior oropharynx normal and Yes tonsils normal (no TP congestion noted) Neck Neck: Yes no lymphadenopathy and Yes supple Resp Auscultation: clear to auscultation bilaterally, no rales and no wheezes Cardio Rate: regular rate Rhythm: regular rhythm Heart sounds: no murmurs GI Palpation (GI): Soft to palpation and nontender Auscultation: normal bowel sounds General: Yes no CVA tenderness Back/Spine/Pelvis Back: no CVA tenderness Cervical Spine: Cervical spine tenderness Thoracic/Lumbar Spine: lumbar spinal tenderness Skin Rashes: no rashes Extrem General: Yes no clubbing, cyanosis or edema Assessment and Plan Assessment & Plan (1) Pure hypercholesterolemia: Code(s): E78.00 - Pure hypercholesterolemia, unspecified Plan: Reinforced low cholesterol diet; she was not able to get her follow up labs done recently Continue Atorvastatin 20 mg QD Will recheck her labs and fasting lipids in 4 months for follow up (2) Impaired fasting glucose: Code(s): R73.01 - Impaired fasting glucose Plan: Her HgbA1c improved to 5.6% and FBS was normal when last checked a few months ago Reinforced low carb/low calorie diet (3) GERD (gastroesophageal reflux disease): Code(s): K21.9 - Gastro-esophageal reflux disease without esophagitis Qualifiers: Esophagitis presence: without esophagitis Qualified Code(s): K21.9 - Gastro-esophageal reflux disease without esophagitis Plan: Dietary restrictions reinforced Continue Omeprazole 20 mg QD (4) Lumbar degenerative disc disease: Code(s): M51.36 - Other intervertebral disc degeneration, lumbar region Plan: Reinforced activity and weight-lifting restrictions (5) Degenerative disc disease, cervical: Code(s): M50.30 - Other cervical disc degeneration, unspecified cervical region Plan: States that her neck pain has been mostly manageable and she continues to do neck exercises and stretching that she was taught from physical therapy in the past regularly (6) Osteoporosis: Comment: S/P Tx with Alendronate x 5 years Code(s): M81.0 - Age-related osteoporosis without current pathological fracture Qualifiers: Osteoporosis type: age-related Presence of current pathological fracture: without current pathological fracture Qualified Code(s): M81.0 - Age- related osteoporosis without current pathological fracture Plan: S/P Tx with Alendronate x 5 years Repeat BMD done on 10/15/21 revealed (+) osteoporosis based on the lowest T-score value of -2.8 in the lumbar spine applying World Health Organization criteria. This is mostly unchanged from her BMD last done on 09/24/2018 and in March 2016 but cautioned that her lumbar spine BMD has declined by about 8% from previous Fall precautions and weight-lifting precautions reinforced Patient is encouraged to continue with her oral vitamin-D and calcium supp lements daily and also to stay active and exercise regularly (7) Insomnia: Code(s): G47.00 - Insomnia, unspecified Qualifiers: Insomnia type: unspecified Qualified Code(s): G47.00 - Insomnia, unspecified Plan: Sleep hygiene reinforced She takes Trazodone 50 mg or OTC Melatonin 3 mg Q HS PRN (8) Anxiety: Code(s): F41.9 - Anxiety disorder, unspecified Plan: Patient feels that her anxiety is currently still manageable and does not wish to take any Rx as much as possible Plan Follow up in 4 months Orders: Orders Lipid Panel 4 Months E78.00 - Pure hypercholesterolemia, unspecified Complete Blood Count Auto Diff 4 Months D64.9 - Anemia, unspecified Comprehensive Tiff. Panel Fast 4 Months E78.00 - Pure hypercholesterolemia, unspecified UA CC w/rflx Micro + Cult 4 Months R30.0 - Dysuria Vitamin D 25-OH Total 4 Months E55.9 - Vitamin D deficiency, unspecified Medications: Refilled omeprazole 20 mg PO DAILY 90 days 90 caps 1RF Coding Level of Care Code Est Pt Level 4 (15010) Diagnoses Pure hypercholesterolemia E78.00 Impaired fasting glucose R73.01 Gastroesophageal reflux disease without esophagitis K21.9 Esophagitis presence: without esophagitis Lumbar degenerative disc disease M51.36 Degenerative disc disease, cervical M50.30 Age-related osteoporosis without current pathological fracture M81.0 Osteoporosis type: age-related Presence of current pathological fracture: without current pathological fracture Insomnia, unspecified type G47.00 Insomnia type: unspecified Anxiety F41.9
== END 2023-05-19 09:47 | disposition home or self-care (01) ==
PROVIDERS: PCP Internal Medicine; Visit Provider Internal Medicine
DX: E78.00 Pure hypercholesterolemia, unspecified (principal); R73.01 Impaired fasting glucose; K21.9 Gastro-esophageal reflux disease without esophagitis; M51.36 Other intervertebral disc degeneration, lumbar region; M50.30 Other cervical disc degeneration, unspecified cervical region; M81.0 Age-related osteoporosis without current pathological fracture; G47.00 Insomnia, unspecified; F41.9 Anxiety disorder, unspecified
CPT/HCPCS: 99214

== ENCOUNTER 2023-09-18 08:05 | Outpatient (REF) | payer MEDICARE, SELFPAY ==
[2023-09-18 08:20] LABS: MANUAL DIFF FLAG NO
[2023-09-18 08:43] LABS: Basophils Absolute Auto 0.1 X10*3/uL (0.0-0.2); Basophils Percent Auto 1.6 % (0-2); Eosinophils Absolute Auto 0.2 X10*3/uL (0.0-0.4); Eosinophils Percent Auto 4.3 % (0-4); Hematocrit 38.7 % (37.0-47.0); Hemoglobin 12.8 g/dl (12.0-16.0); Imm Gran Abs Auto 0.01 X10*3/uL (0.00-0.03); Imm Gran Pct Auto 0.2 % (0.0-0.4); Lymphocytes Absolute Auto 2.4 X10*3/uL (1.2-4.9); Lymphocytes Percent Auto 49.2 % (20-40); Mean Corpuscular HGB Conc 33.1 g/dl (31.0-35.0); Mean Corpuscular Hemoglobin 30.7 pg (27.0-33.0); Mean Corpuscular Volume 92.8 fL (80.0-98.0); Mean Platelet Volume 9.2 fL (9.4-12.3); Monocytes Absolute Auto 0.4 X10*3/uL (0.1-1.2); Monocytes Percent Auto 7.6 % (2-11); Neutrophils Absolute Auto 1.8 x10*3/uL (2.0-8.3); Neutrophils Percent Auto 37.1 % (45-73); Platelet Count 261 X10*3/uL (160-400); Red Blood Count 4.17 X10*6/uL (4.20-5.50); White Blood Count 4.9 X10*3/uL (4.8-10.8)
[2023-09-18 09:18] LABS: Alanine Aminotransferase 18 U/L (0-31); Albumin Level 4.3 g/dL (3.5-5.0); Alkaline Phosphatase 60 U/L (39-117); Anion Gap 11 (12-20); Aspartate Amino Transferase 25 U/L (5-31); Bilirubin Total 0.5 mg/dL (0.0-1.0); Blood Urea Nitrogen 12 mg/dL (9-16); Calcium 9.4 mg/dL (8.4-10.2); Carbon Dioxide 27 mmol/L (22-29); Chloride 107 mmol/L (96-108); Cholesterol 156 mg/dL (<200); Estimated Glomerular Filt Rate > 60; Glucose Fasting 120 mg/dL (60-99); HDL Cholesterol 66 mg/dL (>40); LDL Cholesterol Calculated 79 mg/dL (<100); Potassium 3.9 mmol/L (3.3-5.1); Sodium 141 mmol/L (135-145); Total Protein 7.5 g/dL (6.5-8.0); Triglycerides 58 mg/dL (<150)
[2023-09-18 09:34] LABS: Appearance Urine Clear; Color Urine Yellow; Glucose Urine UA Negative (Negative); Leukocyte Esterase Urine Negative (Negative); Nitrite Urine Negative (Negative); PH 7.5 (5.0-9.0); Specific Gravity - Urine <= 1.005 (1.005-1.025); Urine Blood Negative (Negative); Urine Ketones Negative (Negative); Urine Protein Negative (Neg-Trace); Vitamin D 25-OH Total 54.7 ng/mL (>30)
== END 2023-09-18 08:06 | disposition home or self-care (01) ==
LOC: HO.LAB 08:05
PROVIDERS: PCP Internal Medicine; Visit Provider Internal Medicine
DX: E55.9 Vitamin D deficiency, unspecified (principal); D64.9 Anemia, unspecified; R30.0 Dysuria; E78.00 Pure hypercholesterolemia, unspecified
CPT/HCPCS: 36415; 80053; 80061; 81003; 82306; 85025

== ENCOUNTER 2023-11-19 11:14 | Outpatient (REF) | payer MEDICARE, SELFPAY | END 2023-11-19 11:15 | disposition home or self-care (01) | LOC: HO.MAMMO 11:14 | PROVIDERS: PCP Internal Medicine; Visit Provider Internal Medicine | DX: Z12.31 Encounter for screening mammogram for malignant neoplasm of breast (principal) | CPT/HCPCS: 77063; 77067 ==

== ENCOUNTER → 2023-11-19 11:45 | Outpatient (BNV) | payer MEDICARE, SELFPAY | PROVIDERS: PCP Internal Medicine; Visit Provider Radiology Diagnostic Radiology | DX: Z12.31 Encounter for screening mammogram for malignant neoplasm of breast (principal) | CPT/HCPCS: 77063; 77067 ==

== ENCOUNTER 2024-03-01 07:05 | Outpatient (REF) | payer MEDICARE, SELFPAY ==
[2024-03-01 07:20] LABS: MANUAL DIFF FLAG NO
[2024-03-01 07:46] LABS: Basophils Absolute Auto 0.1 X10*3/uL (0.0-0.2); Basophils Percent Auto 1.3 % (0-2); Eosinophils Absolute Auto 0.1 X10*3/uL (0.0-0.4); Hematocrit 36.1 % (37.0-47.0); Hemoglobin 12.1 g/dl (12.0-16.0); Imm Gran Abs Auto 0.01 X10*3/uL (0.00-0.03); Imm Gran Pct Auto 0.2 % (0.0-0.4); Lymphocytes Percent Auto 41.8 % (20-40); Mean Corpuscular HGB Conc 33.5 g/dl (31.0-35.0); Mean Corpuscular Hemoglobin 31.5 pg (27.0-33.0); Mean Platelet Volume 9.3 fL (9.4-12.3); Monocytes Absolute Auto 0.3 X10*3/uL (0.1-1.2); Monocytes Percent Auto 7.2 % (2-11); Neutrophils Absolute Auto 2.2 x10*3/uL (2.0-8.3); Neutrophils Percent Auto 46.5 % (45-73); Platelet Count 253 X10*3/uL (160-400); Red Blood Count 3.84 X10*6/uL (4.20-5.50); Red Cell Distribution Width 12.2 % (11.0-16.0); White Blood Count 4.7 X10*3/uL (4.8-10.8)
[2024-03-01 08:21] LABS: Alanine Aminotransferase 18 U/L (0-31); Alkaline Phosphatase 61 U/L (39-117); Anion Gap 11 (12-20); Aspartate Amino Transferase 27 U/L (5-31); Bilirubin Total 0.5 mg/dL (0.0-1.0); Blood Urea Nitrogen 27 mg/dL (9-16); Calcium 9.3 mg/dL (8.4-10.2); Carbon Dioxide 23 mmol/L (22-29); Chloride 109 mmol/L (96-108); Cholesterol 153 mg/dL (<200); Estimated Glomerular Filt Rate > 60; Glucose Fasting 120 mg/dL (60-99); HDL Cholesterol 61 mg/dL (>40); LDL Cholesterol Calculated 77 mg/dL (<100); Potassium 3.8 mmol/L (3.3-5.1); Sodium 139 mmol/L (135-145); Total Protein 6.9 g/dL (6.5-8.0); Triglycerides 76 mg/dL (<150)
[2024-03-01 08:23] LABS: Appearance Urine Clear; Color Urine Yellow; Glucose Urine UA Negative (Negative); Leukocyte Esterase Urine Trace (Negative); Nitrite Urine Negative (Negative); Specific Gravity - Urine 1.015 (1.005-1.025); UMIC TRIGGER UACC YES; Urine Blood Trace (Negative); Urine Ketones Negative (Negative); Urine Protein Negative (Neg-Trace)
[2024-03-01 08:27] LABS: Bacteria Urine None Seen (None Seen); Hyaline Casts Urine 0-2 /LPF (0-2); RBC Urine 0-2 /HPF (0-2); Squamous Epithelial Cell Urine 0-2 /HPF (0-2); WBC Urine 0-5 /HPF (0-5)
[2024-03-01 08:39] LABS: TSH reflex Free T4 2.42 uIU/mL (0.32-4.0); Vitamin D 25-OH Total 63.3 ng/mL (>30)
== END 2024-03-01 07:06 | disposition home or self-care (01) ==
LOC: HO.LAB 07:05
PROVIDERS: PCP Internal Medicine; Visit Provider Internal Medicine
DX: D64.9 Anemia, unspecified (principal); E78.00 Pure hypercholesterolemia, unspecified; E55.9 Vitamin D deficiency, unspecified
CPT/HCPCS: 36415; 80053; 80061; 81001; 82306; 84443; 85025

== ENCOUNTER 2024-03-02 15:48 | Outpatient (AMB) | payer MEDICARE, SELFPAY ==
[2024-03-02 15:50] VITALS: BP 110/60; PULSE 82; O2SAT 97; BMI 20.6
--- NOTE | 2024-03-02 15:50 | MHC.PC.OV ---
Vital Signs 03/02/24 15:50 Height 5 ft 3 in Weight 116 lb 2 oz BMI 20.6 BP 110/60 Blood Pressure Location Lt brachial Position Sitting Pulse 82 Pulse Source Pulse Oximeter Pulse Oximetry (%) 97 Oxygen Delivery Method Room Air Intake Visit Reasons: hyperlipidemia, osteoporosis, GERD Support Teacher Required: No Accompanied by: Self / Same As Patient Allergies No Known Allergies [No Known Allergies*] Allergy (Verified 03/02/24 16:11) Medication List - Last Reconciled 03/02/24 by Rick Hudson MD atorvastatin 20 mg PO DAILY 90 days omeprazole 20 mg PO DAILY 90 days Tobacco use date assessed: 03/02/24 Fall risk assessment: No Falls in past year Last assessed Fall Risk: 03/02/24 Dental Screening Dental Screen Date: 03/02/24 Did you have a dental visit in the last 12 months?: Yes Did you have a dental problem in the last 6 months where you did not have access to dental care?: No Was dental information given to patient?: Patient has dentist HPI hyperlipidemia, osteoporosis, GERD HPI Details Patient comes in today for her follow up visit - was last seen in April 2023 Patient states that she currently feels okay She denies any headaches or dizziness Denies any chest pains, no SOB No nausea/vomiting, no abdominal pain No change in bowel habits noted She had her follow up labs done yesterday - to discuss her results She would also like to get her flu shot today [facility] Medical History Depression Insomnia Osteoporosis Degenerative disc disease, cervical Lumbar degenerative disc disease GERD (gastroesophageal reflux disease) Pure hypercholesterolemia Surgical History History of colonoscopy (~10/06/18) History of vaginal surgery Social History Housing: House Alcohol intake: current Alcohol intake frequency: holidays/special occasions only Alcohol type: wine Patient Tobacco Use Status: Never used Tobacco e-Cigarette/Vaping Use: Never Used Second Hand Smoke Exposure: No service: No Current occupational status: employed Cognitive needs: No Hearing needs: No Vision needs: No Questionnaire PHQ-9 Over the last 2 weeks, how often have you been bothered by any of the following problems? 1. Little interest or pleasure in doing things: not at all 2. Feeling down, depressed, or hopeless: not at all 3. Trouble falling or staying asleep, or sleeping too much: not at all 4. Feeling tired or having little energy: not at all 5. Poor appetite or overeating: not at all 6. Feeling bad about yourself - or that you are a failure or have let yourself or your family down: not at all 7. Trouble concentrating on things, such as reading the newspaper or watching television: not at all 8. Moving or speaking so slowly that other people could have noticed. Or the opposite - being so fidgety or restless that you have been moving around a lot more than usual: not at all 9. Thoughts that you would be better off or of hurting yourself in some way: not at all Total score: 0 Depression Screening Interpretation: Negative Depression Screening Done: Yes 48521 - PHQ-9 Billing: Yes Source: Developed by Drs. Ignacio Cloud, Bess Owen, Ottoniel Cardona and colleagues, with an educational demian from [employer]. Thrive Questionnaire Date Thrive assessed: 03/02/24 I am a: Patient What is your living situation today?: I have a steady place to live Within the past 12 months, did the food you bought not last and you didn't have the money to get more?: Never true Within the past 12 months, did you worry whether your food would run out before you got money to buy more?: Never true Do you have trouble paying for medicines?: No Do you have trouble getting transportation to medical appointments?: No Do you have trouble paying your heating and electricity bill?: No Do you have trouble taking care of your child, family member or friend?: No Do you have trouble with day-to-day activities such as bathing, preparing meals, shopping, managing finances, etc.?: No Are you currently unemployed and looking for a job?: No Are you interested in more education?: No Please select the resources that you would like help with: None Currently or been in a relationship where the following occur: No concerns reported THRIVE Score: 0 AUDIT C Alcohol Use Questionnaire (AUDIT-C) 1. How often do you have a drink containing alcohol?: Never 3. How often do you have six or more drinks on one occasion?: Never Total Score: 0 Score Reviewed/Action Taken: Yes LOR-7 AMB Questionnaire LOR-7 Date LOR - 7 assessed: 03/02/24 Feeling nervous, anxious, or on edge: 0 = Not at all Not being able to stop or control worryin = Not at all Worrying too much about different things: 0 = Not at all Trouble relaxin = Not at all Being so restless that it is hard to sit still: 0 = Not at all Becoming easily annoyed or irritable: 0 = Not at all Feeling afraid as if something awful might happen: 0 = Not at all Total LOR-7 score (0-4 normal; 5-9 mild; 10-14 moderate; 15-21 severe): 0 Source: Developed by Drs. Ignacio Cloud, Bess Owen, Ottoniel Cardona and colleagues, with an educational demian from [employer]. Review of Systems Const Denies chills, Denies fatigue, Denies fever(s) and Denies headache(s) ENT Denies dysphagia, Denies dizziness, Denies otalgia, Denies headache(s), Reports neck pain (on and off), Denies odynophagia and Denies sore throat Card Denies chest pain, Denies irregular heart rhythm, Denies palpitations and Denies dyspnea Resp Denies chest congestion, Denies cough and Denies dyspnea GI Denies abdominal pain, Denies constipation, Denies dysphagia, Denies heartburn, Denies diarrhea, Denies nausea, Denies odynophagia and Denies vomiting Denies difficulty voiding, Denies nocturia, Denies dysuria and Denies urinary urgency Musc Reports back pain (on and off) and Reports neck pain (on and off) Skin/Breast Denies rash Neuro Denies dizziness and Denies headache(s) Endo Denies fatigue and Denies palpitations Physical exam (Primary Care) Vital Signs: Last Vital Signs Pulse 82 03/02/24 15:50 BP 110/60 03/02/24 15:50 Pulse Ox 97 03/02/24 15:50 Oxygen Delivery Method Room Air 03/02/24 15:50 BMI result Body Mass Index 20.6 Tobacco/Smoking Status: Tobacco use Status Tobacco use date assessed 03/02/24 03/02/24 15:54 Patient Tobacco Use Status Never used Tobacco 03/02/24 15:54 e-Cigarette/Vaping Use Never Used 03/02/24 15:54 PHQ-9: PHQ-9 Score PHQ-9: Total score 0 03/02/24 16:19 Depression Screening Interpretation: Negative Thrive Assessment: Date of Thrive Assessment Date Thrive assessed 03/02/24 03/02/24 15:54 Currently or been in a relationship where the following occur: No concerns reported Const General: no acute distress and alert HENMT Ears: TM's normal bilaterally and EAC's normal Throat: Yes posterior oropharynx normal and Yes tonsils normal (no TP congestion noted) Neck Neck: Yes no lymphadenopathy and Yes supple Thyroid: Thyroid normal Resp Auscultation: clear to auscultation bilaterally, no rales and no wheezes Cardio Rate: regular rate Rhythm: regular rhythm Heart sounds: no murmurs GI Palpation (GI): Soft to palpation and nontender Auscultation: normal bowel sounds General: Yes no CVA tenderness Back/Spine/Pelvis Back: no CVA tenderness Cervical Spine: Cervical spine tenderness Thoracic/Lumbar Spine: lumbar spinal tenderness (mild) Skin Rashes: no rashes Extrem General: Yes no clubbing, cyanosis or edema Office Procedures Flu Questionnaire Does the patient have a severe egg allergy?: No Does the patient have severe life threatening allergies?: No Does the patient have a fever or illness today?: No Has the patient ever had Guillain-[place] Syndrome?: No Has the patient ever had any past reaction to a flu shot?: No Results AMB Hemoglobin A1c AMB Hemoglobin A1c 6.0 % Last Edit by MARGARITO Wagoner on 03/02/24 16:25 Immunizations Fluarix Triv 7735-0053 (PF) 45 mcg (15 mcg x 3)/0.5 mL IM syringe Performing Provider: Rick Hudson MD [facility] Administered by: MARGARITO Wagoner on 03/02/24 16:37 Dose Route Admin Location Dispensed Lot Number Expiration Date [facility] Medical Language Specialist 0.5 mL IM Left Deltoid 0.5 mL [id number] 10/24/24 [id number] [employer] VIS Given Date VIS Provided VIS Publication Date 03/02/24 Single Vaccine 20 Eligibility Eligibility Date Funding Source Not VFC Eligible 03/02/24 Private Results Reviewed Results Reviewed: Laboratory Tests 03/01/24 03/01/24 07:16 07:19 WBC 4.7 L Hgb 12.1 Hct 36.1 L Plt Count 253 Sodium 139 Potassium 3.8 Creatinine 0.80 Estimated GFR > 60 Fasting Glucose 120 H Calcium 9.3 AST 27 ALT 18 Triglycerides 76 Cholesterol 153 LDL Cholesterol, Calc 77 HDL Cholesterol 61 25-OH Vitamin D Total 63.3 TSH 2.42 Ur Specific [place] 1.015 Urine Protein Negative Urine Glucose (UA) Negative Urine Blood Trace H Urine Nitrite Negative Ur Leukocyte Esterase Trace H Coding Level of Care Code Est Pt Level 4 (55495) Diagnoses Pure hypercholesterolemia E78.00 Impaired fasting glucose R73.01 Gastroesophageal reflux disease without esophagitis K21.9 Esophagitis presence: without esophagitis Degeneration of intervertebral disc of lumbar region with discogenic back pain M51.360 Disc-related pain type: discogenic back pain only Degenerative disc disease, cervical M50.30 Age-related osteoporosis without current pathological fracture M81.0 Osteoporosis type: age-related Presence of current pathological fracture: without current pathological fracture Insomnia, unspecified type G47.00 Insomnia type: unspecified Anxiety F41.9 Additional Codes PHQ-9 - 71509 - PHQ-9 Billing: Yes ([id number]) Assessment & Plan Assessment & Plan (1) Pure hypercholesterolemia: Code(s): E78.00 - Pure hypercholesterolemia, unspecified Category: Medical Plan: Results of her labs done yesterday reviewed and discussed with patient Reinforced low cholesterol diet Continue Atorvastatin 20 mg QD Will recheck her labs and fasting lipids in 4 months for follow up (2) Impaired fasting glucose: Code(s): R73.01 - Impaired fasting glucose Category: Medical Plan: Her in-office HgbA1c done today is at 6.0% (HgbA1c was normal at 5.6% when previously checked a year ago in December 2022); her FBS was elevated at 120 mg/dl on her recent labs Reinforced low carb/low calorie diet (3) GERD (gastroesophageal reflux disease): Code(s): K21.9 - Gastro-esophageal reflux disease without esophagitis Category: Medical Qualifiers: Esophagitis presence: without esophagitis Qualified Code(s): K21.9 - Gastro-esophageal reflux disease without esophagitis Plan: Dietary restrictions reinforced Continue Omeprazole 20 mg QD (4) Lumbar degenerative disc disease: Code(s): M51.36 - Other intervertebral disc degeneration, lumbar region Category: Medical Qualifiers: Disc-related pain type: discogenic back pain only Qualified Code(s): M51.360 - Other intervertebral disc degeneration, lumbar region with discogenic back pain only Plan: Reinforced activity and weight-lifting restrictions (5) Degenerative disc disease, cervical: Code(s): M50.30 - Other cervical disc degeneration, unspecified cervical region Category: Medical Plan: States that her neck pain has been mostly manageable and she continues to do neck exercises and stretching that she was taught from physical therapy in the past regularly (6) Osteoporosis: Comment: S/P Tx with Alendronate x 5 years Code(s): M81.0 - Age-related osteoporosis without current pathological fracture Category: Medical Qualifiers: Osteoporosis type: age-related Presence of current pathological fracture: without current pathological fracture Qualified Code(s): M81.0 - Age-related osteoporosis without current pathological fracture Plan: S/P Tx with Alendronate x 5 years Repeat BMD done on 10/15/21 revealed (+) osteoporosis based on the lowest T-score value of -2.8 in the lumbar spine. This is mostly unchanged from her BMD on 09/24/2018 and in March 2016 but she is cautioned that her lumbar spine BMD has declined by about 8% from previous Fall precautions and weight-lifting precautions reinforced Patient is encouraged to continue with her oral vitamin-D and calcium supplements daily and also to stay active and exercise regularly She will be due for repeat BMD next year (7) Insomnia: Code(s): G47.00 - Insomnia, unspecified Category: Medical Qualifiers: Insomnia type: unspecified Qualified Code(s): G47.00 - Insomnia, unspecified Plan: Sleep hygiene reinforced She takes Trazodone 50 mg or OTC Melatonin 3 mg Q HS PRN (8) Anxiety: Code(s): F41.9 - Anxiety disorder, unspecified Category: Medical Plan: Patient feels that her anxiety is currently still manageable and does not wish to take any Rx as much as possible Plan As requested, flu vaccine given to patient today Follow up in 4 months Orders: Orders AMB Hemoglobin A1c Today Z13.9 - Encounter for screening, unspecified Complete Blood Count Auto Diff 6 Months D64.9 - Anemia, unspecified UA CC w/rflx Micro + Cult 6 Months R30.0 - Dysuria Influenza [id number] Immunization Today Z23 - Encounter for immunization Comprehensive [place]. Panel Fast 6 Months E78.00 - Pure hypercholesterolemia, unspecified Lipid Panel 6 Months E78.00 - Pure hypercholesterolemia, unspecified TSH reflex Free T4 6 Months E78.00 - Pure hypercholesterolemia, unspecified Hemoglobin A1c 6 Months E11.9 - Type 2 diabetes mellitus without complications Vitamin D 25-OH Total 6 Months E55.9 - Vitamin D deficiency, unspecified Referrals [employer] Referral Z12.4 - Encounter for screening for malignant neoplasm of cervix Medications: New Fluarix Triv [id number] (PF) (flu vacc [id number] 6mos up(PF)) 0.5 mL IM ONCE 0.5 mL 0RF NS Z23 - Encounter for immunization
== END 2024-03-02 16:40 | disposition home or self-care (01) ==
LOC: HO.HMCH 15:49
PROVIDERS: PCP Internal Medicine; Visit Provider Internal Medicine
DX: E78.00 Pure hypercholesterolemia, unspecified (principal); R73.01 Impaired fasting glucose; K21.9 Gastro-esophageal reflux disease without esophagitis; M51.360 Other intervertebral disc degeneration, lumbar region with discogenic back pain only; M50.30 Other cervical disc degeneration, unspecified cervical region; M81.0 Age-related osteoporosis without current pathological fracture; G47.00 Insomnia, unspecified; F41.9 Anxiety disorder, unspecified; Z23 Encounter for immunization; Z13.9 Encounter for screening, unspecified

== ENCOUNTER → 2024-03-02 15:48 | Outpatient (BNVA) | payer MEDICARE, SELFPAY | PROVIDERS: PCP Internal Medicine; Visit Provider Internal Medicine | DX: Z23 Encounter for immunization (principal); Z13.1 Encounter for screening for diabetes mellitus; E78.00 Pure hypercholesterolemia, unspecified; R73.01 Impaired fasting glucose; K21.9 Gastro-esophageal reflux disease without esophagitis; M51.360 Other intervertebral disc degeneration, lumbar region with discogenic back pain only; M50.30 Other cervical disc degeneration, unspecified cervical region; M81.0 Age-related osteoporosis without current pathological fracture; G47.00 Insomnia, unspecified; F41.9 Anxiety disorder, unspecified | CPT/HCPCS: 83036; 90471; 90656; 96127; 99212 ==

== ENCOUNTER 2024-04-14 10:44 | Outpatient (AMB) | payer MEDICARE, SELFPAY ==
[2024-04-14 10:54] VITALS: BP 100/72; PULSE 99; O2SAT 98; BMI 20.8
--- NOTE | 2024-04-14 10:54 | MHC.PC.OV ---
Vital Signs 04/14/24 10:54 Height 5 ft 3 in Weight 117 lb 8 oz BMI 20.8 BP 100/72 Blood Pressure Location Lt brachial Position Sitting Pulse 99 Pulse Source Pulse Oximeter Pulse Oximetry (%) 98 Oxygen Delivery Method Room Air Intake Visit Reasons: pain on neck Nursing Administrator Required: No Accompanied by: Self / Same As Patient Allergies No Known Allergies [No Known Allergies*] Allergy (Verified 04/14/24 11:43) Medication List - Last Reconciled 04/14/24 by Rick Hudson MD atorvastatin 20 mg PO DAILY 90 days omeprazole 20 mg PO DAILY 90 days Tobacco use date assessed: 04/14/24 Fall risk assessment: No Falls in past year Last assessed Fall Risk: 04/14/24 Dental Screening Dental Screen Date: 04/14/24 Did you have a dental visit in the last 12 months?: Yes Did you have a dental problem in the last 6 months where you did not have access to dental care?: No Was dental information given to patient?: Patient has dentist HPI pain on neck HPI Details Patient comes in today complaining of pain over her left anterior neck area which she states started yesterday States that she does not recall doing anything that could have caused the pain She woke up this morning with some sore throat as well, which cause her to become more concerned and anxious about her symptoms Recalls that she has a relative back in the [facility] that supposedly had some similar throat/neck symptoms recently that he ignored and he was eventually diagnosed with throat cancer from which he ultimately from and she is worried that her symptoms may be similar to the aforementioned relative She denies any trouble swallowing and denies any recent cough cold symptoms She denies any fever, headaches or dizziness Denies any chest pains, no shortness of breath No nausea/vomiting, no abdominal pain No change in bowel habits noted [facility] Medical History Depression Insomnia Osteoporosis Degenerative disc disease, cervical Lumbar degenerative disc disease GERD (gastroesophageal reflux disease) Pure hypercholesterolemia Surgical History History of colonoscopy (~10/06/18) History of vaginal surgery Social History Housing: House Alcohol intake: current Alcohol intake frequency: holidays/special occasions only Alcohol type: wine Patient Tobacco Use Status: Never used Tobacco e-Cigarette/Vaping Use: Never Used Second Hand Smoke Exposure: No service: No Current occupational status: employed Cognitive needs: No Hearing needs: No Vision needs: No Questionnaire PHQ-9 Over the last 2 weeks, how often have you been bothered by any of the following problems? 1. Little interest or pleasure in doing things: not at all 2. Feeling down, depressed, or hopeless: not at all 3. Trouble falling or staying asleep, or sleeping too much: not at all 4. Feeling tired or having little energy: not at all 5. Poor appetite or overeating: not at all 6. Feeling bad about yourself - or that you are a failure or have let yourself or your family down: not at all 7. Trouble concentrating on things, such as reading the newspaper or watching television: not at all 8. Moving or speaking so slowly that other people could have noticed. Or the opposite - being so fidgety or restless that you have been moving around a lot more than usual: not at all 9. Thoughts that you would be better off or of hurting yourself in some way: not at all Total score: 0 Depression Screening Interpretation: Negative Depression Screening Done: Yes 53891 - PHQ-9 Billing: Yes Source: Developed by Drs. Ignacio Cloud, Bess Owen, Ottoniel Cardona and colleagues, with an educational demian from [employer]. Thrive Questionnaire Date Thrive assessed: 04/14/24 I am a: Patient What is your living situation today?: I have a steady place to live Within the past 12 months, did the food you bought not last and you didn't have the money to get more?: Never true Within the past 12 months, did you worry whether your food would run out before you got money to buy more?: Never true Do you have trouble paying for medicines?: No Do you have trouble getting transportation to medical appointments?: No Do you have trouble paying your heating and electricity bill?: No Do you have trouble taking care of your child, family member or friend?: No Do you have trouble with day-to-day activities such as bathing, preparing meals, shopping, managing finances, etc.?: No Are you currently unemployed and looking for a job?: No Are you interested in more education?: No Please select the resources that you would like help with: None Currently or been in a relationship where the following occur: No concerns reported THRIVE Score: 0 AUDIT C Alcohol Use Questionnaire (AUDIT-C) 1. How often do you have a drink containing alcohol?: Never 3. How often do you have six or more drinks on one occasion?: Never Total Score: 0 Score Reviewed/Action Taken: Yes LOR-7 AMB Questionnaire LOR-7 Date LOR - 7 assessed: 04/14/24 Feeling nervous, anxious, or on edge: 0 = Not at all Not being able to stop or control worryin = Not at all Worrying too much about different things: 0 = Not at all Trouble relaxin = Not at all Being so restless that it is hard to sit still: 0 = Not at all Becoming easily annoyed or irritable: 0 = Not at all Feeling afraid as if something awful might happen: 0 = Not at all Total LOR-7 score (0-4 normal; 5-9 mild; 10-14 moderate; 15-21 severe): 0 Source: Developed by Drs. Ignacio Cloud, Bess Owen, Ottoniel Cardona and colleagues, with an educational demian from [employer]. Review of Systems Const Denies chills, Denies fatigue, Denies fever(s) and Denies headache(s) ENT Reports as per HPI, Denies dysphagia, Denies dizziness, Denies otalgia, Denies headache(s), Reports neck pain (on and off), Denies odynophagia and Denies sore throat Card Denies chest pain, Denies irregular heart rhythm, Denies palpitations and Denies dyspnea Resp Denies chest congestion, Denies cough and Denies dyspnea GI Denies abdominal pain, Denies constipation, Denies dysphagia, Denies heartburn, Denies diarrhea, Denies nausea, Denies odynophagia and Denies vomiting Denies difficulty voiding, Denies nocturia, Denies dysuria and Denies urinary urgency Musc Reports back pain (on and off) and Reports neck pain (on and off) Skin/Breast Denies rash Neuro Denies dizziness and Denies headache(s) Endo Denies fatigue and Denies palpitations Physical exam (Primary Care) Vital Signs: Last Vital Signs Pulse 99 04/14/24 10:54 BP 100/72 04/14/24 10:54 Pulse Ox 98 04/14/24 10:54 Oxygen Delivery Method Room Air 04/14/24 10:54 BMI result Body Mass Index 20.8 Tobacco/Smoking Status: Tobacco use Status Tobacco use date assessed 04/14/24 04/14/24 11:01 Patient Tobacco Use Status Never used Tobacco 04/14/24 11:01 e-Cigarette/Vaping Use Never Used 04/14/24 11:01 PHQ-9: PHQ-9 Score PHQ-9: Total score 0 04/14/24 11:43 Depression Screening Interpretation: Negative Thrive Assessment: Date of Thrive Assessment Date Thrive assessed 04/14/24 04/14/24 11:01 Currently or been in a relationship where the following occur: No concerns reported Const General: no acute distress and alert HENMT Ears: TM's normal bilaterally and EAC's normal Throat: Yes posterior oropharynx normal and Yes tonsils normal (no TP congestion noted) Neck Other: (+) tenderness on palpation over the left sternocleidomastoid muscle, which feels tight on palpation; there are no other palpable abnormalities on exam of her neck Neck: No lymphadenopathy and Yes tender (mild) Thyroid: Thyroid normal Carotids: no bruits Resp Auscultation: clear to auscultation bilaterally, no rales and no wheezes Cardio Rate: regular rate Rhythm: regular rhythm Heart sounds: no murmurs GI Palpation (GI): Soft to palpation and nontender Auscultation: normal bowel sounds General: Yes no CVA tenderness Back/Spine/Pelvis Back: no CVA tenderness Cervical Spine: Cervical spine tenderness Thoracic/Lumbar Spine: lumbar spinal tenderness (mild) Skin Rashes: no rashes Extrem General: Yes no clubbing, cyanosis or edema Coding Level of Care Code Est Pt Level 3 (62531) Diagnoses Strain of neck muscle, initial encounter S16.1XXA Encounter type: initial encounter Additional Codes PHQ-9 - 65183 - PHQ-9 Billing: Yes ([id number]) Assessment & Plan Assessment & Plan (1) Strain of neck muscle: Code(s): S16.1XXA - Strain of muscle, fascia and tendon at neck level, initial encounter Category: Medical Qualifiers: Encounter type: initial encounter Qualified Code(s): S16.1XXA - Strain of muscle, fascia and tendon at neck level, initial encounter Plan: Involving primarily the left sternocleidomastoid muscle Have reassured patient that her current left anterior neck pain appears most likely to be due to an acute strain of her left neck muscles and that there are no findings at present that would suggest cancer as a potential cause Advised that this is likely from her sleeping with her neck in a poor position the night before, causing her to develop the neck muscle strain Have advised her to apply some warm compress to the sore area on her left anterior neck PRN for symptomatic relief Have also advised her that she can try some gentle massage on her left neck area but to avoid the area around the left carotid artery so as not to trigger a vasovagal response, which may cause her to feel dizzy and lightheaded Advised that she can also take some OTC Tylenol PRN for pain Patient states that she feels much better now that she knows that cancer is not a possibility in this case Plan Follow up as scheduled in August 2024 Medications: New trazodone 50 mg PO BEDTIME PRN 30 tabs 1RF sleep
== END 2024-04-14 12:13 | disposition home or self-care (01) ==
PROVIDERS: PCP Internal Medicine; Visit Provider Internal Medicine
DX: S16.1XXA Strain of muscle, fascia and tendon at neck level, initial encounter (principal)

== ENCOUNTER → 2024-04-14 10:44 | Outpatient (BNVA) | payer MEDICARE, SELFPAY | PROVIDERS: PCP Internal Medicine; Visit Provider Internal Medicine | DX: S16.1XXA Strain of muscle, fascia and tendon at neck level, initial encounter (principal); X58.XXXA Exposure to other specified factors, initial encounter; Y93.9 Activity, unspecified; Y92.9 Unspecified place or not applicable; Y99.9 Unspecified external cause status | CPT/HCPCS: 96127; 99212 ==

== ENCOUNTER 2024-07-27 14:46 | Outpatient (AMB) | payer MEDICARE, SELFPAY ==
--- NOTE | 2024-07-27 14:49 | A.OFFVIS_ITS ---
Vital Signs 07/27/24 14:50 Height 5 ft 3 in Weight 120 lb BMI 21.3 BP 116/70 Intake Visit Reasons: New Patient Annual Mud Engineer: Mud Engineer Present (Joseline) Allergies No Known Allergies [No Known Allergies*] Allergy (Verified 07/27/24 14:50) HPI Comments Details: She is a postmenopausal woman presenting for her new patient annual bottom crane operator examination. She is doing well with no bottom crane operator concerns. Currently not sexually active, 15yrs. Denies any vaginal dryness or irritation. STI testing offered; she declines. Attempting to eat a healthy diet with calcium and vitamin D and stays active with exercise. Last pap smear; years ago. Last mammogram; 2023. Colonoscopy is UTD. Denies any family history of breast, ovarian or colon cancer. [facility] Medical History Depression Insomnia Osteoporosis Degenerative disc disease, cervical Lumbar degenerative disc disease GERD (gastroesophageal reflux disease) Pure hypercholesterolemia Surgical History History of colonoscopy (~10/06/18) History of vaginal surgery Social History Housing: House Alcohol intake: current Alcohol intake frequency: holidays/special occasions only Alcohol type: wine Patient Tobacco Use Status: Never used Tobacco e-Cigarette/Vaping Use: Never Used Second Hand Smoke Exposure: No service: No Current occupational status: employed Cognitive needs: No Hearing needs: No Vision needs: No Female Reproductive History Menstrual Total pregnancies: 3 Full term: 3 Number of Living Children: 3 Date of Mammogram: 11/19/23 (Birad 1) Review of Systems Const All systems reviewed & are unremarkable except as noted in HPI and below Reports as per HPI Eyes Reports no additional complaints ENT Reports no additional complaints Card Reports no additional complaints Resp Reports no additional complaints GI Reports as per HPI and Reports no additional complaints Reports as per HPI Musc Reports no additional complaints Skin/Breast Reports as per HPI Neuro Reports no additional complaints Psych Reports no additional complaints Endo Reports no additional complaints Trae/Lymph Reports no additional complaints Aller/Immun Reports no additional complaints Physical Exam Const General: cooperative, healthy appearing, no acute distress, well developed and alert Orientation/consciousness: patient oriented x3 HEENT Head: Yes normal to inspection Eyes General: appearance normal, both eyes and all related structures Neck Neck: Yes normal visual inspection Thyroid: Thyroid normal Chest Chest palpation & inspection: normal inspection of the chest and other (no puckering, dimpling, peau de orange, retraction, discharge, masses) Breast/axilla inspection: normal inspection of the breasts Breast/axilla palpation: normal palpation of the breasts Resp Effort & Inspection: normal respiratory effort GI Inspection: Yes normal to inspection Palpation (GI): Soft to palpation Rectal Exam - Female: deferred General: Yes bladder normal to palpation External Female Exam: normal external appearance and normal appearance of the urethra Speculum Exam - Vagina: normal appearance of the vagina, normal palpation, normal vaginal discharge and vagina atrophic Speculum Exam - Cervix: normal appearance of the cervix, normal palpation and Other cervical findings present (bled slightly w/pap) Bimanual exam- vagina & uterus: normal bimanual exam, normal palpation, uterine size normal, bladder normal to palpation, normal palpation and non-tender Bimanual Exam- Adnexa, other: no masses Skin General skin exam: no rashes or lesions noted Rashes: no rashes Neuro General: patient oriented x3 Cognition (Neuro): normal cognition Extrem General: Yes normal to inspection Psych Attitude: cooperative Thought process: Normal thought process present Assessment & Plan Assessment & Plan (1) Encounter for well woman exam with routine gynecological exam: Code(s): Z01.419 - Encounter for gynecological examination (general) (routine) without abnormal findings Category: Medical Plan Discussed: Current recommendations for pap smears per ASCCP guidelines. Breast awareness, periodic self breast exams and yearly mammogram. Maintain a healthy lifestyle, well balanced diet including Calcium 1,200 mg and Vitamin D 600 IU daily, and routine exercise. Contact the office with any postmenopausal bleeding. Patient verbalizes understanding and agrees to the plan of care. She was given opportunity to ask questions and all questions were answered to the best of my ability. RTO in 1 year for annual bottom crane operator exam. This note is constructed using voice recognition software. While every effort has been made to ensure accuracy, warehouse receiving supervisor errors may have been included. Coding Level of Care Code New Pt Prev Care >65yr (22246) Diagnoses Encounter for well woman exam with routine gynecological exam Z01.419
[2024-07-27 14:50] VITALS: BP 116/70; BMI 21.3
--- OUTSIDE RECORDS SUMMARY | 2024-07-27 17:21 | XMS_ITS | Clinical Summary ---
Author Organization [facility] Address [address] [place] [address] Care Team Providers Care Graduate Civil Engineer Name Role Phone Community, Pcp Primary Care Provider Unavailabl e Allergies No known active allergies Medications Medication Sig Dispensed Refills Start Date End Date Status valacyclovir (VALTREX) 500 MG tablet Take 500 mg by mouth 3 times daily. 0 Active atorvastatin (LIPITOR) 10 MG tablet Take 1 tablet by mouth daily. 90 tablet 1 02/06/2021 Active omeprazole (PRILOSEC) 20 MG capsuleIndications:Ga stroesophageal reflux disease, unspecified whether esophagitis present Take 1 capsule by mouth once daily 90 capsule 0 07/12/2021 Active Active Problems Problem Noted Date History of abnormal cervical Pap smear 0 06/27/2019 Overview: History: Per [facility], will request records and schedule colpo Colposcopy 07/19/2019: No disease seen on the cervix; biopsy not taken. 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 Overview: Will use valtrex periodically Immunizations Name Administration Dates Next Due COVID-19 (Spyder Lynk) Pt Reported 08/15/2020, 021 Influenza vaccine high dose age 65 and over 12/28 Pneumococcal Conjugate PCV-13 02/27/2020 Family History Medical History Relation Name Comments Hypertension Brother Cancer of the Lung Father Asthma Paternal Grandmother Diabetes Sister Hypertension Sister CA Breast Negative Hx CA Colon Negative Hx CA Ovarian Negative Hx Cancer of the Pancreas Negative Hx Cancer of the Prostate Negative Hx Relation Name Status Comments Brother Father Paternal Grandmother Sister Social History Tobacco Use Types Packs/Day Years Used Date Smoking Tobacco: Never Smokeless Tobacco: Never Alcohol Use Standard Drinks/Week Comments No 0 (1 standard drink = 0.6 oz pur e alcohol) Alcohol Habits Answer Date Recorded How often do you have a drink containing alcohol ? Never 06/27/2019 How many drinks containing a lcohol do you have on a typical day when you are drinking? Not asked How often do you have six or more drinks on one occasion? Not asked Sex Assigned at Date Recorded Not on file Last Filed Vital Signs Vital Sign Reading Time Taken Comments Blood Pressure 117/75 11/12/2020 3:39 PM EDT Pulse 73 11/12/2020 3:39 PM EDT Temperature 36 ??C (96.8 ??F) 11/12/2020 3:39 PM EDT Respiratory Rate 14 11/12/2020 3:39 PM EDT Oxygen Saturation - - Inhaled Oxygen Concentration - - Weight 53.1 kg (117 lb) 11/12/2020 3:39 PM EDT Height 161.3 cm (5' 3.5 ) 11/12/2020 3:39 PM EDT Body Mass Index 20.4 11/12/2020 3:39 PM EDT Plan of Treatment Health Maintenance Due Date Last Done Comments HEPATITIS C SCREENING 1972 CERVICAL CANCER SCREENING 1975 COLON CANCER SCREENING 2004 SHINGLES VACCINE (1 of 2) 2004 BONE DENSITY SCREENING 09/24/2020 9, 04/10/2016, 04/10/2016, Additional history exists PNEUMOCOCCAL VACCINE (2 - PP SV23 or PCV20) 02/26/2021 02/27/2020 MAMMOGRAM 05/17/2021 05/17/2020, 10/0 12/2018, 01/23/2018, Additional history exists Covid-19 Vaccine ( - 2022-2 4 season) 2023 08/15/2020, 07/24/2020 INFLUENZA (Season Ended) 2024 01/25/2020 CHOLESTEROL SCREENING 02/26/2025 02/27/2020, 020 DTAP/TDAP/TD (2 - Td or Tdap) 03/28/2026 03/28/2016 Care Teams Graduate Civil Engineer Relationship Specialty Start Date End Date Community, Pcp PCP - General Internal Medicine 10/18/21
--- OUTSIDE RECORDS SUMMARY | 2024-07-27 17:21 | XMS_ITS | Encounter Summary ---
Author Organization [facility] Address [address] [place] [address] Care Team Providers Care Pie Baker Name Role Phone Anuel Parks MD Primary Care Provider Emma Phillips Ch MD Primary Care Provider [phone] [facility], Pcp Primary Care Provider Unavailabl e Encounter Details Date Type Department Care Team Description 06/06/2019 Release of Information Medical Records [address] [place] [id number] Abstract, Provider Social History Tobacco Use Types Packs/Day Years Used Date Smoking Tobacco: Never Smokeless Tobacco: Never Alcohol Habits Answer Date Recorded How often do you have a drink containing alcohol ? Never 06/27/2019 How many drinks containing a lcohol do you have on a typical day when you are drinking? Not asked How often do you have six or more drinks on one occasion? Not asked Sex Assigned at Date Recorded Not on file documented as of this encounter Plan of Treatment Not on file documented as of this encounter Visit Diagnoses Not on filedocumented in this encounter Care Teams Pie Baker Relationship Specialty Start Date End Date Anuel Parks MD PCP - General Internal Medicine 04/29/19 09/24/20 Alesha Phillips, [address] [place] [address] PCP - General Internal Medicine 09/25/20 10/17/21 Anita Reyes [address] [place] [address] PCP - General Internal Medicine 10/18/21 documented as of this encounter
--- OUTSIDE RECORDS SUMMARY | 2024-07-27 17:21 | XMS_ITS | Encounter Summary ---
Author Organization [facility] Address [address] [place] [address] Care Team Providers Care Matcher Offbearer Name Role Phone Anuel Parks MD Primary Care Provider Emma Phillips Ch MD Primary Care Provider [phone] [facility], Pcp Primary Care Provider [facility] e Encounter Details Date Type Department Care Team Description 07/15/2019 Release of Information Medical Records [address] [place] [id number] Abstract, Provider Social History Tobacco Use Types [...] on file documented as of this encounter Nursing Notes * Court Walden - 07/15/2019 9:46 AM EDT AUTHORIZATION TO OBTAIN RECORDS FAXED TO [facility]. documented in this encounter Plan of Treatment Not on file documented as of this encounter Visit Diagnoses Not on filedocumented in this encounter Care Teams Matcher Offbearer Relationship Specialty Start Date End Date Anuel Parks MD PCP - General Internal Medicine 04/29/19 09/24/20 Alesha Phillips, [address] [place] [address] PCP - General Internal Medicine 09/25/20 10/17/21 [facility], Pcp [address] [place] [address] PCP - General Internal Medicine 10/18/21 documented as of this encounter
--- OUTSIDE RECORDS SUMMARY | 2024-07-27 17:21 | XMS_ITS | Encounter Summary ---
Author Organization [facility] Address [address] [place] [address] Care Team Providers Care Test Designer Name Role Phone Community, Pcp Primary Care Provider Unavailabl e Reason for Visit * Reason Comments E-prescribe Rx Request Encounter Details Date Type Department Care Team Description 10/23/2021 Refill Adult Medicine - [place] [address] [place] [address] Alesha Phillisp MD [address] [place] [address] E-prescribe Rx Request Social History Tobacco Use Types Packs/Day Years [...] on filedocumented in this encounter Care Teams Test Designer Relationship Specialty Start Date End Date Community, Pcp PCP - General Internal Medicine 10/18/21 documented as of this encounter
--- OUTSIDE RECORDS SUMMARY | 2024-07-27 17:21 | XMS_ITS | Encounter Summary ---
Author Organization [facility] Address [address] [place] [address] Care Team Providers Care Splitting Machine Operator Helper Name Role Phone Breanna Nobles MD Primary Care Provider Emma Phillips Ch MD Primary Care Provider [phone] [facility], Pcp Primary Care Provider Unavailabl e Reason for Referral * EXTERNAL (Routine) - Authorized/Booked Specialty Diagnoses / Procedures Referred By Hugo butler Referred To Contact Physical Therapy Diagnoses Adhesive capsulitis of left shoulder Procedures REFERRAL TO PHYSICAL THERAPY Breanna Nobles MD [address] [place] [id number] External Phys Thrpy Referral ID Status Reason Start Date Expiration Date V isits Requested Visits Authorized SEE NOTE Authorized/B ooked 09/12/2019 12/14/2019 1 1 Reason for Visit * Reason Onset Date Comments REFERRAL 09/12/2019 Encounter Details Date Type Department Care Team Description 09/12/2019 Telephone Medicine/Pediatrics - [address] [phone] Breanna Nobles MD REFERRAL Social History Tobacco Use Types Packs/Day Years [...] on file documented as of this encounter Miscellaneous Notes * Telephone Encounter - Breanna Nobles MD - 09/12/2019 9:11 PM EDT Referral signed, thanks * Telephone Encounter - Helen Dino - 09/12/2019 10:23 AM EDT Please review this patients new referral request. The referral has been pended. Please complete thefollowing: If approved> sign order If denied>please give instructions and route to your practice nursing pool. Practice nurse should inform referrals and the patient if denied. Subscriber: VANE HITCHCOCK Submitter : BREANNA NOBLES Submitter Type: Provider Member ID: [id number] : [id number] Referral (#[id number]) HMO MULTIPLE VISIT REFERRAL THE FIRST VISIT MUST OCCUR WITHIN 90 DAYS BALANCE WITHIN 1 YEAR OF EFFECTIVE DATE Specialty Care Review Type: Initial Certification Status : Certified in total Place Of Service : Office Visits : 8 Issue : 09/12/2019 Expiration : 12/10/2019 Service Providers Provider Name ID Provider Type AT PHYSICAL THERAPY [facility] NPI : [id number] Service Provider * Telephone Encounter - Katherine Roberts - 09/12/2019 10:01 AM EDT What insurance does the patient have today? Payor: [employer] - MEDICARE / Plan: MEDICARE FFS $5 [id number] / Product Type: MEDICARE [id number] Effective 01/25/09: BC[employer] will not retro referral requests over 90 days. If request is for this please instruct patient to call the 800# on their insurance card to appeal. Do not submit a request. Referrals cannot be processed if the insurance is not accurate. If the insurance listed above in red is NO BILLING INFORMATION FOUND FOR THIS ENCOUTNER The patients correct insurance must be obtained and registered in [facility] or their referral can not be processed. Is this a retro request? NO. If yes for what date of service do you need the retro referral? N/A Who is calling to request this referral? patient If the caller is not the patient, what is their name? N/A Ask the patient WHO referred them to this specialty: Patient saw dr. nobles at [facility] for the problem and was told if symptoms did not resolve or worsen they would refer them to this specialty FIRST and LAST NAME of SPECIALIST PATIENT is seeing: Attain Therapy What specialty is this? PT DIAGNOSIS Patient is being seen for (Not a body part or a procedure): left shoulder pain Have you seen this SPECIALIST for this PROBLEM/DX before?NO If YES, when: Have you checked REVIEW or the APPT DESK to see if this referral has already been done or has visits left? YES Is this visit:Initial Visit Address of Specialist: [address] [place] [address] Phone # of Specialist: [phone] Fax #: (if applicable): [phone] Does patient have an appointment scheduled?: YES Date of appointment- (including a retro-request): August Is this appointment related to: Not MVA, WC or Surgery related Requesting 8 visits documented in this encounter Plan of Treatment Not on file documented as of this encounter Visit Diagnoses Diagnosis Adhesive capsulitis of left shoulder- Primary Adhesive capsulitis of shoulder documented in this encounter Care Teams Splitting Machine Operator Helper Relationship Specialty Start Date End Date Breanna Nobles MD PCP - General Internal Medicine 04/29/19 09/24/20 Alesha Phillips MD [address] [place] [address] PCP - General Internal Medicine 09/25/20 10/17/21 [facility] [address] [place] [address] PCP - General Internal Medicine 10/18/21 documented as of this encounter
--- OUTSIDE RECORDS SUMMARY | 2024-07-27 17:21 | XMS_ITS | Encounter Summary ---
Author Organization [facility] Address [address] [place] [address] Care Team Providers Care Security Delivery Specialist Name Role Phone Anuel Parks MD Primary Care Provider Emma Phillips Ch MD Primary Care Provider [phone] [facility], Pcp Primary Care Provider [facility] Encounter Details Date Type Department Care Team Description 09/09/2019 Telephone Medicine/Pediatrics - [address] [phone] Anuel Parks MD Social History Tobacco Use Types Packs/Day Years [...] encounter Miscellaneous Notes * Telephone Encounter - Anuel Parks MD - 09/12/2019 10:32 AM EDT Noted, referral set up in other TE * Telephone Encounter - Lisa Brown L.P.N. - 09/12/2019 8:58 AM EDT Pt notified as written below She would like a ref to PT set Up she will call for her own apt and will call us back with where she is going * Telephone Encounter - Anuel Parks MD - 09/09/2019 8:35 PM EDT Please call patient to inform her of her xray results as below: - Neck xrays: findings consistent with arthritis; mild degenerative disc disease though more severenarrowing of the tunnel that her lower cervical spinal nerves travel through on the right side, mild on the left side which is where her pain has been . I would recommend she consider working with PTor chiropractor - Left shoulder xrays: mild arthritis. Based on these results on her exam, she has a frozen shoulder, which is what we discussed in the office. This should be treated with working on range of motion exericses, would recommend she work with a physical therapist. Could consider an ultrasound guided steroid injection in the office if not improving with PT range of motion exercises, though this would have to be at one point in the future when I again have access to an ultrasound machien to do so (unsure when this will be based on pandemic) Let me know if questions, thanks documented in this encounter Plan of Treatment Not on file documented as of this encounter Visit Diagnoses Not on filedocumented in this encounter Care Teams Security Delivery Specialist Relationship Specialty Start Date End Date Anuel Parks MD PCP - General Internal Medicine 04/29/19 09/24/20 Alesha Phillips MD [address] [place] [address] PCP - General Internal Medicine 09/25/20 10/17/21 [facility], [facility] [address] [place] [address] PCP - General Internal Medicine 10/18/21 documented as of this encounter
--- OUTSIDE RECORDS SUMMARY | 2024-07-27 17:21 | XMS_ITS | Clinical Summary ---
Author Organization [employer] Address [address] [facility] [address] [place] [address] Care Team Providers Care Partridge Farmer Name Role Phone Unavailable Primary Care Provider Unavailabl e Social History Tobacco Use Types Packs/Day Years Used Date Smoking Tobacco: Never Assessed Comments Unknown Sex and Gender Information Value Date Recorded Sex Assigned at Female 02/24/2022 10:23 AM EDT Legal Sex Female 10:23 AM EDT Gender Identity Not on file Sexual Orientation Not on file Plan of Treatment Health Maintenance Due Date Last Done Comments CT Colonography 1955 Colonoscopy 1955 Colorectal Cancer Screening 1955 Depression Screening 1955 FIT DNA/Cologuard 1955 FIT 1955 FOBT 1955 Sigmoidoscopy 1955 Alcohol/Substance Use Screening 1966 Tobacco Screening 1966 DTaP/Tdap/Td Vaccines (1 - Tdap) 1973 Mammogram 1994 Pneumococcal Vaccine: 50+ Ye ars (1 of 1 - PCV) 2004 Zoster Vaccines (1 of 2) 2004 COVID-19 Vaccine ( - 2023-2 5 season) 2023 Influenza Vaccine (#1) 2023 RSV Patients and Pa tients Aged 60 years or older (1 - 1-dose 75+ series) 2029 HIB Vaccines Aged Out No longer eligi ble based on patient's age to complete this topic HPV Vaccines Aged Out No longer eligi ble based on patient's age to complete this topic Hepatitis A Vaccines Aged Out No long er eligible based on patient's age to complete this topic Hepatitis B Vaccines Aged Out No long er eligible based on patient's age to complete this topic IPV Vaccines Aged Out No longer eligi ble based on patient's age to complete this topic Meningococcal Vaccine Aged Out No kylah henny eligible based on patient's age to complete this topic RSV under 20 months Aged Out No longe r eligible based on patient's age to complete this topic Rotavirus Vaccines Aged Out No longer eligible based on patient's age to complete this topic
--- OUTSIDE RECORDS SUMMARY | 2024-07-27 17:21 | XMS_ITS | Encounter Summary ---
Author Organization [facility] Address [address] [place] [address] Care Team Providers Care Circulation Crew Leader Name Role Phone Anuel Parks MD Primary Care Provider Emma Phillips Ch MD Primary Care Provider [phone] [facility], Pcp Primary Care Provider Unavailabl e Encounter Details Date Type Department Care Team Description 09/06/2019 Telephone Medicine/Pediatrics [address] [phone] Anuel Parks MD Social History Tobacco Use [...] on filedocumented in this encounter Care Teams Circulation Crew Leader Relationship Specialty Start Date End Date Anuel Parks MD PCP - General Internal Medicine 04/29/19 09/24/20 Alesha Phillips MD [address] [place] [address] PCP - General Internal Medicine 09/25/20 10/17/21 [facility], Pcp [address] [place] [address] PCP - General Internal Medicine 10/18/21 documented as of this encounter
--- OUTSIDE RECORDS SUMMARY | 2024-07-27 17:21 | XMS_ITS | Encounter Summary ---
Author Organization [employer] Address [address] [facility] [address] [place] [address] Care Team Providers Care Commutator Inspector Name Role Phone Unavailable Primary Care Provider Unavailabl e Encounter Details Date Type Department Care Team (Latest Contact Info) Description 07/13/2018 Abstract C CONVERSIONS Dental, Provider, DDS Social History Tobacco Use Types Packs/Day Years Used Date Smoking Tobacco: Never Assessed Comments Unknown Sex and Gender Information Value Date Recorded Sex Assigned at Female 02/24/2022 10:23 AM EDT Legal Sex Female 10:23 AM EDT Gender Identity Not on file Sexual Orientation Not on file documented as of this encounter Plan of Treatment Not on file documented as of this encounter Visit Diagnoses Not on filedocumented in this encounter
== END 2024-07-27 15:21 | disposition home or self-care (01) ==
LOC: HO.HWS 14:46
PROVIDERS: PCP Internal Medicine; Visit Provider Advanced Practice Midwife
DX: Z01.419 Encounter for gynecological examination (general) (routine) without abnormal findings (principal)
CPT/HCPCS: 99387; 99459

== ENCOUNTER 2024-07-27 14:46 | Outpatient (REF) | payer MEDICARE, SELFPAY ==
--- OUTSIDE RECORDS SUMMARY | 2024-07-27 17:45 | XMS_ITS | Encounter Summary ---
Author Organization [employer] Address [address] [facility] [address] [place] [address] Care Team Providers Care Ed Manager Name Role Phone Unavailable Primary Care Provider [...]
--- OUTSIDE RECORDS SUMMARY | 2024-07-27 17:45 | XMS_ITS | Clinical Summary ---
Author Organization [employer] Address [address] [facility] [address] [place] [address] Care Team Providers Care Dump Truck Driver Off Highway Name Role Phone Unavailable Primary Care Provider [...]
[2024-08-03 15:06] LABS: HPV Genotype 16 Negative (Negative); HPV Genotype 18 Negative (Negative); HPV High Risk Positive (Negative)
== END 2024-07-27 14:47 | disposition home or self-care (01) ==
LOC: HO.LNP 14:46
PROVIDERS: PCP Internal Medicine; Visit Provider Advanced Practice Midwife
DX: Z01.419 Encounter for gynecological examination (general) (routine) without abnormal findings (principal); R87.610 Atypical squamous cells of undetermined significance on cytologic smear of cervix (ASC-US); R87.810 Cervical high risk human papillomavirus (HPV) DNA test positive
CPT/HCPCS: 87626; 88175; 99387; 99459

== ENCOUNTER 2024-08-10 08:49 | Outpatient (REF) | payer MEDICARE, SELFPAY ==
--- NOTE | ~2024-08-10 | MM_ITS ---
EXAMINATION: DXA BONE DENSITY AXIAL HISTORY: Z78.0 - Asymptomatic menopausal state TECHNIQUE: Whois Dual energy absorptiometry (DEXA) of the lumbar spine, total left hip, and femoral neck was performed. COMPARISON: Comparison is made with the prior examination dated 10/15/2021. FINDINGS: The bone mineral density of the lumbar spine is 0.865 with a T-score of -2.5, and a Z-score of -0.5. This is indicative of osteoporosis. This represents a BMD change of 3.5% compared to the prior exam. This is statistically significant. The bone mineral density of the left total hip is 0.853 with a T-score of -1.2, and a Z-score of 0.5. This is indicative of osteopenia. This represents a BMD change of 0.1% compared to the prior exam. This is not statistically significant. The bone mineral density of the left femoral neck is 0.732 with a T-score of -2.2, and a Z-score of -0.2. This is indicative of osteopenia. This represents a BMD change of -3.7% compared to the prior exam. MM/XR DEXA axial skeleton IMPRESSION: Based on bone mineral density, and according to World Health Organization (WHO) criteria, the diagnosis is consistent with osteoporosis. All bone density values are in grams per centimeter squared (g/cm2). Statistically, 68% of repeat scans fall within 1 SD (+/- 0.010 g/cm2 for AP spine L1-L4) and 1 SD (+/- 0.012 g/cm2 for femur total) FRAX is a trademark of the [employer] [place] [employer] Met[employer] Disease, a World Health Organization (WHO) Collaborating Center. Electronically signed by: Ignacio Chaney MD 08/10/2024 09:59 AM EDT
--- OUTSIDE RECORDS SUMMARY | 2024-08-10 09:17 | XMS_ITS | Encounter Summary ---
Author Organization [employer] Address [address] [facility] [address] [place] [address] Care Team Providers Care Rig Supervisor Name Role Phone Unavailable Primary Care Provider [...]
--- OUTSIDE RECORDS SUMMARY | 2024-08-10 09:17 | XMS_ITS | Clinical Summary ---
Author Organization [employer] Address [address] [facility] [address] [place] [address] Care Team Providers Care Water And Gas Helper Name Role Phone Unavailable Primary Care Provider [...]
--- OUTSIDE RECORDS SUMMARY | 2024-08-10 09:17 | XMS_ITS | Encounter Summary ---
Author Organization [facility] Address [address] [place] [address] Care Team Providers Care Chaser Helper Name Role Phone Anuel Parks MD Primary Care Provider Emma Phillips Ch MD Primary Care Provider [phone] [phone] [facility], Pcp Primary [facility] Encounter Details Date Type Department Care Team Description 09/09/2019 Telephone Medicine/Pediatrics - [address] [phone] Anuel Parks MD Social History Tobacco Use [...] on filedocumented in this encounter Care Teams Chaser Helper Relationship Specialty Start Date End Date Anuel Parks MD PCP - General Internal Medicine 04/29/19 09/24/20 Alesha Phillips MD [address] [place] [address] PCP - General Internal Medicine 09/25/20 10/17/21 [facility], [facility] [address] [place] [address] PCP - General Internal Medicine 10/18/21 documented as of this encounter
--- OUTSIDE RECORDS SUMMARY | 2024-08-10 09:17 | XMS_ITS | Encounter Summary ---
Author Organization [facility] Address [address] [place] [address] Care Team Providers Care Nursing Home Manager Name Role Phone Anuel Parks MD Primary Care Provider Emma Phillips Ch MD Primary Care Provider [phone] [phone] [facility], Pcp Primary Care Provider Unavailabl e Encounter Details Date Type Department Care Team Description 09/06/2019 Telephone Medicine/Pediatrics [address] [phone] Anuel Parks MD Social History Tobacco Use [...] on filedocumented in this encounter Care Teams Nursing Home Manager Relationship Specialty Start Date End Date Anuel Parks MD PCP - General Internal Medicine 04/29/19 09/24/20 Alesha Phillips MD [address] [place] [address] PCP - General Internal Medicine 09/25/20 10/17/21 [facility], Pcp [address] [place] [address] PCP - General Internal Medicine 10/18/21 documented as of this encounter
--- OUTSIDE RECORDS SUMMARY | 2024-08-10 09:17 | XMS_ITS | Encounter Summary ---
Author Organization [facility] Address [address] [place] [address] Care Team Providers Care Automotive Parts Counterperson Name Role Phone Anuel Parks MD Primary Care Provider Emma Phillips Ch MD Primary Care Provider [phone] [facility], Pcp Primary Care Provider Unavailabl e Encounter Details Date Type Department Care Team Description 06/27/2019 Orders Only PROFESSIONAL MODEL - [address] [address] Kaye Hendrickson CNM [address] [place], [place] [phone] Social History Tobacco Use Types Packs/Day Years [...] on filedocumented in this encounter Care Teams Automotive Parts Counterperson Relationship Specialty Start Date End Date Anuel Parks MD PCP - General Internal Medicine 04/29/19 09/24/20 Alesha Phillips MD [address] [place] [address] PCP - General Internal Medicine 09/25/20 10/17/21 [facility] Pcp [address] [place] [address] PCP - General Internal Medicine 10/18/21 documented as of this encounter
--- OUTSIDE RECORDS SUMMARY | 2024-08-10 09:17 | XMS_ITS | Encounter Summary ---
Author Organization [facility] Address [address] [place] [address] Care Team Providers Care Parts Administrator Name Role Phone Breanna Nobles MD Primary Care Provider Emma Phillips Ch MD Primary Care Provider [phone] [facility], Pcp Primary Care Provider Unavailabl e Reason for Referral * EXTERNAL (Routine) - Authorized/Booked Specialty Diagnoses / Procedures Referred By Hugo butler Referred To Contact Physical Therapy Diagnoses Adhesive capsulitis of left shoulder Procedures REFERRAL TO PHYSICAL THERAPY Breanna Nobles MD [address] [place] [id number] External Phys Thrpy Referral ID Status Reason Start Date Expiration Date V isits Requested Visits Authorized SEE NOTE Authorized/B ooked 09/12/2019 12/14/2019 1 1 Reason for Visit * Reason Onset Date Comments REFERRAL 09/12/2019 Encounter Details Date Type Department Care Team Description 09/12/2019 Telephone Medicine/Pediatrics - [address] [phone] Breanna Nobles MD REFERRAL Social History Tobacco [...] BREANNA NOBLES Submitter Type: Provider Member ID: [id number] : 1955 Referral (#[id number]) HMO MULTIPLE VISIT REFERRAL THE FIRST VISIT MUST OCCUR WITHIN 90 DAYS BALANCE WITHIN 1 YEAR OF EFFECTIVE DATE Specialty Care Review Type: Initial Certification Status : Certified in total Place Of Service : Office Visits : 8 Issue : 09/12/2019 Expiration : 12/10/2019 Service Providers Provider Name ID Provider Type AT PHYSICAL THERAPY [facility] NPI : [id number] Service Provider * Telephone Encounter - Katherine Roberts - 09/12/2019 10:01 AM EDT What insurance does the patient have today? Payor: [employer] - MEDICARE / Plan: MEDICARE FFS $5 [id number] / Product Type: MEDICARE [id number] Effective 01/25/09: BCBS will not retro referral [...] insurance must be obtained and registered in [facility] or their referral can not be processed. Is this a retro request? NO. If yes for what date of service do you need the retro referral? N/A Who is calling to request this referral? patient If the caller is not the patient, what is their name? N/A Ask the patient WHO referred them to this specialty: Patient saw dr. nobles at [facility] for the problem and was [...] Is this visit:Initial Visit Address of Specialist: [address] [place] [address] Phone # of Specialist: [phone] Fax #: (if applicable): [phone] Does patient have an appointment scheduled?: YES Date of appointment- (including a retro-request): August Is this appointment related to: Not MVA, WC or Surgery related Requesting 8 visits documented in this encounter Plan of Treatment Not on file documented as of this encounter Visit Diagnoses Diagnosis Adhesive capsulitis of left shoulder- Primary Adhesive capsulitis of shoulder documented in this encounter Care Teams Parts Administrator Relationship Specialty Start Date End Date Breanna Nobles MD PCP - General Internal Medicine 04/29/19 09/24/20 Alesha Phillips MD [address] [place] [address] PCP - General Internal Medicine 09/25/20 10/17/21 [facility], [facility] [address] [place] [address] PCP - General Internal Medicine 10/18/21 documented as of this encounter
--- OUTSIDE RECORDS SUMMARY | 2024-08-10 09:17 | XMS_ITS | Encounter Summary ---
Author Organization [facility] Address [address] [place] [address] Care Team Providers Care Dental Technician Name Role Phone Anuel Parks MD Primary Care Provider Emma Phillips Ch MD Primary Care Provider [phone] [phone] [facility], Pcp Primary Care Provider Unavailabl e Encounter Details Date Type Department Care Team Description 06/06/2019 Release of Information Medical Records [address] [place] [address] Abstract, Provider Social History Tobacco Use Types [...] on filedocumented in this encounter Care Teams Dental Technician Relationship Specialty Start Date End Date Anuel Parks MD PCP - General Internal Medicine 04/29/19 09/24/20 Alesha Phillips, [address] [place] [address] PCP - General Internal Medicine 09/25/20 10/17/21 Anita Reyes [address] [place] [address] PCP - General Internal Medicine 10/18/21 documented as of this encounter
== END 2024-08-10 08:50 | disposition home or self-care (01) ==
LOC: HO.MAMMO 08:49
PROVIDERS: PCP Internal Medicine; Visit Provider Internal Medicine
DX: M81.0 Age-related osteoporosis without current pathological fracture (principal); Z78.0 Asymptomatic menopausal state
CPT/HCPCS: 77080

== ENCOUNTER → 2024-08-10 09:15 | Outpatient (BNV) | payer MEDICARE, SELFPAY | PROVIDERS: PCP Internal Medicine; Visit Provider Radiology Diagnostic Radiology | DX: E28.39 Other primary ovarian failure (principal) | CPT/HCPCS: 77080 ==

== ENCOUNTER 2024-08-18 07:42 | Outpatient (AMB) | payer MEDICARE, SELFPAY ==
--- OUTSIDE RECORDS SUMMARY | 2024-08-18 07:45 | XMS_ITS | Encounter Summary ---
Author Organization [employer] Address [address] [facility] 7 [place] [address] Care Team Providers Care Engineering And Operations Director Name Role Phone Unavailable Primary Care Provider [...]
--- OUTSIDE RECORDS SUMMARY | 2024-08-18 07:45 | XMS_ITS | Encounter Summary ---
Author Organization [facility] Address [address] [place] [address] Care Team Providers Care Whiting Machine Operator Name Role Phone Anuel Parks MD Primary Care Provider Emma Phillips Ch MD Primary Care Provider [phone] [facility], Pcp Primary Care Provider Unavailabl e Encounter Details Date Type Department Care Team Description 06/27/2019 Orders Only SALESFORCE DEVELOPER - [address] [address] Kaye Hendrickson CNM [address] [place], [place] [phone] Social History Tobacco Use Types Packs/Day Years [...] on filedocumented in this encounter Care Teams Whiting Machine Operator Relationship Specialty Start Date End Date Anuel Parks MD PCP - General Internal Medicine 04/29/19 09/24/20 Alesha Phillips MD [address] [place] [address] PCP - General Internal Medicine 09/25/20 10/17/21 [facility] Pcp [address] [place] [address] PCP - General Internal Medicine 10/18/21 documented as of this encounter
--- OUTSIDE RECORDS SUMMARY | 2024-08-18 07:46 | XMS_ITS | Clinical Summary ---
Author Organization [employer] Address [address] [facility] 7t [place] [address] Care Team Providers Care Shear Setter Name Role Phone Unavailable Primary Care Provider [...]
--- OUTSIDE RECORDS SUMMARY | 2024-08-18 07:46 | XMS_ITS | Encounter Summary ---
Author Organization [facility] Address [address] [place] [address] Care Team Providers Care Licensing Officer Name Role Phone Anuel Parks MD Primary Care Provider Emma Phillips Ch MD Primary Care Provider [phone] [phone] [facility], Pcp Primary Care Provider Unavaillea e Encounter Details Date Type Department Care Team Description 05/23/2019 Release of Information Medical Records [address] [place] [address] Abstract, Provider Social History Tobacco Use Types Packs/Day Years Used Date Smoking Tobacco: Never Assessed Alcohol Habits Answer Date Recorded How often [...] encounter Nursing Notes * [facility] - 05/23/2019 10:01 AM EST AUTHORIZATION TO OBTAIN RECORDS MAILED TO [facility]. documented in this encounter Plan of Treatment Not on file documented as of this encounter Visit Diagnoses Not on filedocumented in this encounter Care Teams Licensing Officer Relationship Specialty Start Date End Date Anuel Parks MD PCP - General Internal Medicine 04/29/19 09/24/20 Alesha Phillips MD [address] [place] [address] PCP - General Internal Medicine 09/25/20 10/17/21 [facility], Pcp [address] [place], [place] PCP - General Internal Medicine 10/18/21 documented as of this encounter
--- OUTSIDE RECORDS SUMMARY | 2024-08-18 07:46 | XMS_ITS | Encounter Summary ---
Author Organization [facility] Address [address] [place] [address] Care Team Providers Care Radar Air Traffic Controller Name Role Phone Anuel Parks MD Primary Care Provider Emma Phillips Ch MD Primary Care Provider [phone] [phone] [facility], Pcp Primary Care [facility] Encounter Details Date Type Department Care Team Description 2020 Telephone Medicine/Pediatrics - [address] [phone] Anuel Parks MD Social History Tobacco Use [...] Assigned at Date Recorded Not on file COVID-19 Exposure Response Date Recorded In the last month, have you been in contact with someone who was confirmed or suspected to have Coronavirus / COVID-19? No / Unsure 03/26/2020 9:13 AM EST documented as of this encounter Plan of Treatment Not on file documented as of this encounter Visit Diagnoses Not on filedocumented in this encounter Care Teams Radar Air Traffic Controller Relationship Specialty Start Date End Date Anuel Parks MD PCP - General Internal Medicine 04/29/19 09/24/20 Alesha Phillips MD [address] [place] [address] PCP - General Internal Medicine 09/25/20 10/17/21 [facility], Pcp [address] [place] [address] PCP - General Internal Medicine 10/18/21 documented as of this encounter
--- OUTSIDE RECORDS SUMMARY | 2024-08-18 07:46 | XMS_ITS | Encounter Summary ---
Author Organization [facility] Address [address] [place] [address] Care Team Providers Care Transition Mgr Name Role Phone Anuel Parks MD Primary Care Provider Emma Phillips Ch MD Primary Care Provider [phone] [phone] [facility], Pcp Primary Care Provider Unavailabl e Encounter Details Date Type Department Care Team Description 08/05/2019 Transfer Records Medical Records [address] [place] [id number] [place] [address] Social History Tobacco Use Types Packs/Day Years [...] on filedocumented in this encounter Care Teams Transition Mgr Relationship Specialty Start Date End Date Anuel Parks MD PCP - General Internal Medicine 04/29/19 09/24/20 Alesha Phillips MD [address] [place] [address] PCP - General Internal Medicine 09/25/20 10/17/21 [facility], Anita [address] [place] [address] PCP - General Internal Medicine 10/18/21 documented as of this encounter
--- OUTSIDE RECORDS SUMMARY | 2024-08-18 07:46 | XMS_ITS | Encounter Summary ---
Author Organization [facility] Address [address] [place] [address] Care Team Providers Care Soyfreeze Operator Name Role Phone [facility], Pcp Primary Care Provider Unavailabl e Reason for Visit * Reason Comments E-prescribe Rx Request Encounter Details Date Type Department Care Team Description 10/23/2021 Refill Adult Medicine - [place] [address] [place] [address] Alesha Phillips MD [address] [place] [address] E-prescribe Rx Request Social History Tobacco Use [...] on filedocumented in this encounter Care Teams Soyfreeze Operator Relationship Specialty Start Date End Date [facility], Pcp PCP - General Internal Medicine 10/18/21 documented as of this encounter
--- OUTSIDE RECORDS SUMMARY | 2024-08-18 07:46 | XMS_ITS | Encounter Summary ---
Author Organization [facility] Address [address] [place] [address] Care Team Providers Care Elevator Runner Name Role Phone Anuel Parks MD Primary Care Provider Emma Phillips Ch MD Primary Care Provider [phone] [phone] [facility], Pcp Primary Care Provider Unavailabl e Encounter Details Date Type Department Care Team Description 09/06/2019 Telephone Medicine/Pediatrics [address] [phone] Anuel Parks MD Social History Tobacco Use [...] on filedocumented in this encounter Care Teams Elevator Runner Relationship Specialty Start Date End Date Anuel Parks MD PCP - General Internal Medicine 04/29/19 09/24/20 Alesha Phillips MD [address] [place] [address] PCP - General Internal Medicine 09/25/20 10/17/21 [facility], Pcp [address] [place] [address] PCP - General Internal Medicine 10/18/21 documented as of this encounter
[2024-08-18 08:17] VITALS: BP 110/64; BMI 21.3
--- NOTE | 2024-08-18 08:17 | A.OFFVIS_ITS ---
Vital Signs 08/18/24 08:17 Height 5 ft 3 in Weight 120 lb BMI 21.3 BP 110/64 Intake Visit Reasons: Colposcopy Supervisor Denture Department Required: No Information Interpreted: non-clinical & clinical Racking Machine Operator: Racking Machine Operator Present (Ludmila PIMENTEL) Accompanied by: Self / Same As Patient Allergies No Known Allergies [No Known Allergies*] Allergy (Verified 08/18/24 08:17) Post menopausal: Yes HPI Comments Details: Presenting referred from Sofia Camargo CNM regarding abnormal Pap smear showing ascus/HPV positive, HPV 16/18 negative [facility] Medical History Depression Insomnia Osteoporosis Degenerative disc disease, cervical Lumbar degenerative disc disease GERD (gastroesophageal reflux disease) Pure hypercholesterolemia Surgical History History of colonoscopy (~10/06/18) History of vaginal surgery Social History Housing: House Alcohol intake: current Alcohol intake frequency: holidays/special occasions only Alcohol type: wine Patient Tobacco Use Status: Never used Tobacco e-Cigarette/Vaping Use: Never Used Second Hand Smoke Exposure: No service: No Current occupational status: employed Cognitive needs: No Hearing needs: No Vision needs: No Review of Systems Const All systems reviewed & are unremarkable except as noted in HPI and below Reports as per HPI and Reports no additional complaints GI Reports no additional complaints Reports no additional complaints Office Procedures Colposcopy Colposcopy: Pre-Procedure Counseling: Before beginning the procedure, I conducted comprehensive counseling with the patient. We thoroughly discussed the procedure itself, including its details, alternatives, and all associated risks. This included but not limited to the following complications such as bleeding, infection, and injury to the vagina, bladder, and vessels, as well as the potential need for transfusion with all its associated risks. Subsequently, the patient sign the consent. Pap smear result: Ascus HPV positive, HPV 16/18 negative Procedure: During the procedure, the following steps were performed: A speculum was inserted, and acetic acid was applied. Colposcopy was conducted, allowing visualization of the transformation zone. Acetowhite lesions were identified at the 5+ 6+ 7+ 9 o'clock position. Cervical biopsies were obtained from the 5+ 6+ 7+ 9 o'clock position, followed by an endocervical curettage (ECC). Vaginoscopy of the upper vagina revealed no evidence of aceto-white lesions. Hemostasis was achieved using Monsel solution, and the patient tolerated the procedure well. Post-Procedure Instructions: The patient was advised to promptly contact the office or the after hours answering service or go to the emergency room if experiencing a temperature exceeding 100.4?F, abdominal pain, nausea/vomiting, or bleeding. Additionally, the patient was instructed to abstain from vaginal intercourse and bathtub use. The patient confirmed understanding of these instructions. Discharge Instructions: The patient was instructed to schedule a follow-up appointment in 2 weeks for further evaluation and management. Please note that this note was generated using a voice recognition program, and errors may have occurred during television cabinet finisher. 22584-Uqthhabmn of cervix including upper vagina with biopsy and ECC Procedure code (CPT) selection complete Assessment & Plan Assessment & Plan (1) ASCUS with positive high risk HPV cervical: Code(s): R87.610 - Atypical squamous cells of undetermined significance on cytologic smear of cervix (ASC-US); R87.810 - Cervical high risk human papillomavirus (HPV) DNA test positive Category: Medical Plan: Discussed with the patient the result of her abnormal pap, its significance, risk of progression, persistence, and regression. the false positive/negative r ate of a Pap smear as a screening test in detecting cervical cancer and the indication for a diagnostic test -colposcopy, biopsy, endocervical curettage. The patient verbalized understanding and agreed with the plan, all questions answered. Colpo biopsy/ECC done, see procedure note Orders: Orders AMB Colposcopy Today R87.610 - Atypical squamous cells of undetermined significance on cytologic smear of cervix (ASC-US), R87.810 - Cervical high risk human papillomavirus (HPV) DNA test positive Coding Level of Care Code Procedure Only Diagnoses ASCUS with positive high risk HPV cervical R87.610; R87.810 CPT Codes Colposcopy - CPT: 23257-Bzmuhulvh of cervix including upper vagina with biopsy and ECC ([id number])
== END 2024-08-18 08:21 | disposition home or self-care (01) ==
LOC: HO.HWS 07:42
PROVIDERS: PCP Internal Medicine; Visit Provider Obstetrics & Gynecology
DX: R87.610 Atypical squamous cells of undetermined significance on cytologic smear of cervix (ASC-US) (principal); R87.810 Cervical high risk human papillomavirus (HPV) DNA test positive
CPT/HCPCS: 57454

== ENCOUNTER 2024-08-18 07:42 | Outpatient (REF) | payer MEDICARE, SELFPAY ==
--- OUTSIDE RECORDS SUMMARY | 2024-08-18 09:36 | XMS_ITS | Encounter Summary ---
Author Organization [employer] Address [address] [facility] 7 [place] [address] Care Team Providers Care Certified Nurse Operating Room Name Role Phone Unavailable Primary Care Provider [...]
--- OUTSIDE RECORDS SUMMARY | 2024-08-18 09:36 | XMS_ITS | Clinical Summary ---
Author Organization [employer] Address [address] [facility] 7t [place] [address] Care Team Providers Care Patient Safety Manager Name Role Phone Unavailable Primary Care [...]
== END 2024-08-18 07:43 | disposition home or self-care (01) ==
LOC: HO.LNP 07:42
PROVIDERS: PCP Internal Medicine; Visit Provider Obstetrics & Gynecology
DX: R87.610 Atypical squamous cells of undetermined significance on cytologic smear of cervix (ASC-US) (principal); R87.810 Cervical high risk human papillomavirus (HPV) DNA test positive; Z01.419 Encounter for gynecological examination (general) (routine) without abnormal findings
CPT/HCPCS: 57454; 88305; 88341; 88342

== ENCOUNTER 2024-08-25 09:38 | Outpatient (REF) | payer MEDICARE, SELFPAY ==
[2024-08-25 09:59] LABS: MANUAL DIFF FLAG NO
[2024-08-25 10:37] LABS: Basophils Percent Auto 0.6 % (0-2); Eosinophils Absolute Auto 0.1 X10*3/uL (0.0-0.4); Eosinophils Percent Auto 2.4 % (0-4); Hematocrit 37.2 % (37.0-47.0); Hemoglobin 12.5 g/dl (12.0-16.0); Imm Gran Abs Auto 0.01 X10*3/uL (0.00-0.03); Imm Gran Pct Auto 0.2 % (0.0-0.4); Lymphocytes Absolute Auto 2.4 X10*3/uL (1.2-4.9); Lymphocytes Percent Auto 45.4 % (20-40); Mean Corpuscular HGB Conc 33.6 g/dl (31.0-35.0); Mean Corpuscular Hemoglobin 31.6 pg (27.0-33.0); Mean Corpuscular Volume 93.9 fL (80.0-98.0); Mean Platelet Volume 9.6 fL (9.4-12.3); Monocytes Absolute Auto 0.4 X10*3/uL (0.1-1.2); Monocytes Percent Auto 6.5 % (2-11); Neutrophils Absolute Auto 2.4 x10*3/uL (2.0-8.3); Neutrophils Percent Auto 44.9 % (45-73); Platelet Count 265 X10*3/uL (160-400); Red Blood Count 3.96 X10*6/uL (4.20-5.50); Red Cell Distribution Width 12.2 % (11.0-16.0); White Blood Count 5.4 X10*3/uL (4.8-10.8)
--- OUTSIDE RECORDS SUMMARY | 2024-08-25 10:41 | XMS_ITS | Encounter Summary ---
Author Organization [employer] Address [address] [facility] 7t [place] [address] Care Team Providers Care Browning Processor Name Role Phone Unavailable Primary Care Provider [...]
--- OUTSIDE RECORDS SUMMARY | 2024-08-25 10:41 | XMS_ITS | Clinical Summary ---
Author Organization [employer] Address [address] [facility] 7t [place] [address] Care Team Providers Care Marble Machine Tender Name Role Phone Unavailable Primary Care Provider [...]
[2024-08-25 10:46] LABS: Estimated Average Glucose 123 mg/dL; Hemoglobin A1C 130.5916 umol/L; Hemoglobin A1c % 5.9 % (<6.0); Total Hemoglobin (HGBA1C) 3195.3206 umol/L
[2024-08-25 11:06] LABS: Appearance Urine Clear; Color Urine Yellow; Glucose Urine UA Negative (Negative); Leukocyte Esterase Urine Moderate (2+) (Negative); Nitrite Urine Negative (Negative); Specific Gravity - Urine <= 1.005 (1.005-1.025); UMIC TRIGGER UACC YES; Urine Blood Trace (Negative); Urine Ketones Negative (Negative); Urine Protein Negative (Neg-Trace)
[2024-08-25 11:22] LABS: Bacteria Urine None Seen (None Seen); Hyaline Casts Urine 0-2 /LPF (0-2); RBC Urine 0-2 /HPF (0-2); Squamous Epithelial Cell Urine 0-2 /HPF (0-2); UACC Culture Trigger YES; WBC Urine 0-5 /HPF (0-5)
[2024-08-25 11:22] LABS: Alanine Aminotransferase 12 U/L (0-31); Albumin Level 4.1 g/dL (3.5-5.0); Alkaline Phosphatase 73 U/L (39-117); Anion Gap 12 (12-20); Aspartate Amino Transferase 24 U/L (5-31); Bilirubin Total 0.5 mg/dL (0.0-1.0); Blood Urea Nitrogen 13 mg/dL (9-16); Calcium 9.2 mg/dL (8.4-10.2); Carbon Dioxide 27 mmol/L (22-29); Chloride 106 mmol/L (96-108); Cholesterol 168 mg/dL (<200); Estimated Glomerular Filt Rate > 60; Glucose Fasting 107 mg/dL (60-99); HDL Cholesterol 61 mg/dL (>40); LDL Cholesterol Calculated 94 mg/dL (<100); Potassium 3.8 mmol/L (3.3-5.1); Sodium 141 mmol/L (135-145); TSH reflex Free T4 2.36 uIU/mL (0.32-4.0); Total Protein 7.1 g/dL (6.5-8.0); Triglycerides 69 mg/dL (<150)
== END 2024-08-25 09:39 | disposition home or self-care (01) ==
LOC: HO.LAB 09:38
PROVIDERS: PCP Internal Medicine; Visit Provider Internal Medicine
DX: D64.9 Anemia, unspecified (principal); E78.00 Pure hypercholesterolemia, unspecified; E11.9 Type 2 diabetes mellitus without complications; E55.9 Vitamin D deficiency, unspecified; R82.79 Other abnormal findings on microbiological examination of urine
CPT/HCPCS: 36415; 80053; 80061; 81001; 81003; 82306; 83036; 84443; 85025; 87086

== ENCOUNTER 2024-08-31 09:37 | Outpatient (AMB) | payer MEDICARE, SELFPAY ==
[2024-08-31 09:40] VITALS: BP 100/60; PULSE 84; O2SAT 99; BMI 20.7
--- NOTE | 2024-08-31 09:40 | A.OFFPC_ITS ---
Vital Signs 08/31/24 09:40 Height 5 ft 3 in Weight 117 lb 2 oz BMI 20.7 BP 100/60 Blood Pressure Location Lt brachial Position Sitting Pulse 84 Pulse Source Pulse Oximeter Pulse Oximetry (%) 99 Oxygen Delivery Method Room Air Intake Visit Reasons: hyperlipidemia, IFG, osteoporosis Senior Service Aide Required: No Accompanied by: Self / Same As Patient Allergies No Known Allergies [No Known Allergies*] Allergy (Verified 08/31/24 10:08) Medication List - Last Reconciled 08/31/24 by Rick Hudson MD atorvastatin 20 mg PO DAILY 90 days omeprazole 20 mg PO DAILY 90 days trazodone 50 mg PO BEDTIME PRN Tobacco use date assessed: 08/31/24 Fall risk assessment: No Falls in past year Last assessed Fall Risk: 08/31/24 Dental Screening Dental Screen Date: 08/31/24 Did you have a dental visit in the last 12 months?: Yes Did you have a dental problem in the last 6 months where you did not have access to dental care?: No Was dental information given to patient?: Patient has dentist HPI hyperlipidemia, IFG, osteoporosis HPI Details Patient comes in today for her follow up visit States that she feels okay She denies any headaches or dizziness Denies any chest pains, no SOB No nausea/vomiting, no abdominal pain No change in bowel habits noted States that she will need all of her Rx refilled She had her follow up labs done last month - to discuss her results [facility] Medical History Depression Insomnia Osteoporosis Degenerative disc disease, cervical Lumbar degenerative disc disease GERD (gastroesophageal reflux disease) Pure hypercholesterolemia Surgical History History of colonoscopy (~10/06/18) History of vaginal surgery Social History Housing: House Alcohol intake: current Alcohol intake frequency: holidays/special occasions only Alcohol type: wine Patient Tobacco Use Status: Never used Tobacco e-Cigarette/Vaping Use: Never Used Second Hand Smoke Exposure: No service: No Current occupational status: employed Cognitive needs: No Hearing needs: No Vision needs: No Questionnaire PHQ-9 Over the last 2 weeks, how often have you been bothered by any of the following problems? 1. Little interest or pleasure in doing things: not at all 2. Feeling down, depressed, or hopeless: several days 3. Trouble falling or staying asleep, or sleeping too much: nearly every day 4. Feeling tired or having little energy: not at all 5. Poor appetite or overeating: not at all 6. Feeling bad about yourself - or that you are a failure or have let yourself or your family down: several days 7. Trouble concentrating on things, such as reading the newspaper or watching television: not at all 8. Moving or speaking so slowly that other people could have noticed. Or the opposite - being so fidgety or restless that you have been moving around a lot more than usual: not at all 9. Thoughts that you would be better off or of hurting yourself in some way: not at all Total score: 5 Depression Screening Interpretation: Positive Depression Screening Follow-up: Existing condition and Follow-up Visit Requested Depression Screening Done: Yes 89823 - PHQ-9 Billing: Yes Source: Developed by Drs. Ignacio Cloud, Bess Owen, Ottoniel Cardona and colleagues, with an educational demian from [employer]. Thrive Questionnaire Date Thrive assessed: 08/31/24 I am a: Patient What is your living situation today?: I have a steady place to live Within the past 12 months, did the food you bought not last and you didn't have the money to get more?: Never true Within the past 12 months, did you worry whether your food would run out before you got money to buy more?: Never true Do you have trouble paying for medicines?: No Do you have trouble getting transportation to medical appointments?: No Do you have trouble paying your heating and electricity bill?: No Do you have trouble taking care of your child, family member or friend?: Yes Do you have trouble with day-to-day activities such as bathing, preparing meals, shopping, managing finances, etc.?: No Are you currently unemployed and looking for a job?: Yes Are you interested in more education?: No Please select the resources that you would like help with: None Currently or been in a relationship where the following occur: I choose not to answer THRIVE Score: 0 AUDIT C Alcohol Use Questionnaire (AUDIT-C) 1. How often do you have a drink containing alcohol?: Monthly or less 2. How many drinks containing alcohol do you have on a typical day when you are drinking?: 1 or 2 3. How often do you have six or more drinks on one occasion?: Never Total Score: 1 Score Reviewed/Action Taken: Yes LOR-7 AMB Questionnaire LOR-7 Date LOR - 7 assessed: 08/31/24 Feeling nervous, anxious, or on edge: 1 = Several days Not being able to stop or control worryin = Several days Worrying too much about different things: 0 = Not at all Trouble relaxin = Several days Being so restless that it is hard to sit still: 0 = Not at all Becoming easily annoyed or irritable: 0 = Not at all Feeling afraid as if something awful might happen: 0 = Not at all Total LOR-7 score (0-4 normal; 5-9 mild; 10-14 moderate; 15-21 severe): 3 Source: Developed by Drs. Ignacio Cloud, Bess Owen, Ottoniel Cardona and colleagues, with an educational demian from [employer]. Review of Systems Const Denies chills, Denies fatigue, Denies fever(s) and Denies headache(s) ENT Denies dysphagia, Denies dizziness, Denies otalgia, Denies headache(s), Denies neck pain, Denies odynophagia and Denies sore throat Card Denies chest pain, Denies irregular heart rhythm, Denies palpitations and Denies dyspnea Resp Denies chest congestion, Denies cough and Denies dyspnea GI Denies abdominal pain, Denies constipation, Denies dysphagia, Denies heartburn, Denies diarrhea, Denies nausea, Denies odynophagia and Denies vomiting Denies difficulty voiding, Denies nocturia, Denies dysuria and Denies urinary urgency Musc Reports back pain (on and off) and Denies neck pain Skin/Breast Denies rash Neuro Denies dizziness and Denies headache(s) Endo Denies fatigue and Denies palpitations Physical exam (Primary Care) Vital Signs: Last Vital Signs Pulse 84 08/31/24 09:40 BP 100/60 08/31/24 09:40 Pulse Ox 99 08/31/24 09:40 Oxygen Delivery Method Room Air 08/31/24 09:40 BMI result Body Mass Index 20.7 Tobacco/Smoking Status: Tobacco use Status Tobacco use date assessed 08/31/24 08/31/24 09:44 Patient Tobacco Use Status Never used Tobacco 08/31/24 09:44 e-Cigarette/Vaping Use Never Used 08/31/24 09:44 PHQ-9: PHQ-9 Score PHQ-9: Total score 5 08/31/24 09:51 Depression Screening Interpretation: Positive Depression Screening Follow-up: Existing condition and Follow-up Visit Requested Thrive Assessment: Date of Thrive Assessment Date Thrive assessed 08/31/24 08/31/24 09:44 Currently or been in a relationship where the following occur: I choose not to answer Const General: no acute distress and alert HENMT Ears: TM's normal bilaterally and EAC's normal Throat: Yes posterior oropharynx normal and Yes tonsils normal (no TP congestion noted) Neck Neck: Yes supple and No lymphadenopathy Thyroid: Thyroid normal Carotids: no bruits Resp Auscultation: clear to auscultation bilaterally, no rales and no wheezes Cardio Rate: regular rate Rhythm: regular rhythm Heart sounds: no murmurs GI Palpation (GI): Soft to palpation and nontender Auscultation: normal bowel sounds General: Yes no CVA tenderness Back/Spine/Pelvis Back: no CVA tenderness Cervical Spine: Cervical spine tenderness Thoracic/Lumbar Spine: lumbar spinal tenderness (mild) Skin Rashes: no rashes Extrem General: Yes no clubbing, cyanosis or edema Results Reviewed Results Reviewed: Laboratory Tests 08/25/24 08/25/24 09:55 09:56 WBC 5.4 Hgb 12.5 Hct 37.2 Plt Count 265 Sodium 141 Potassium 3.8 Creatinine 0.80 Estimated GFR > 60 Fasting Glucose 107 H Hemoglobin A1c % 5.9 Calcium 9.2 AST 24 ALT 12 Triglycerides 69 Cholesterol 168 LDL Cholesterol, Calc 94 HDL Cholesterol 61 25-OH Vitamin D Total 48.0 TSH 2.36 Ur Specific [place] <= 1.005 Urine Protein Negative Urine Glucose (UA) Negative Urine Blood Trace H Urine Nitrite Negative Ur Leukocyte Esterase Moderate (2+) H Coding Level of Care Code Est Pt Level 4 (20990) Diagnoses Pure hypercholesterolemia E78.00 Impaired fasting glucose R73.01 Gastroesophageal reflux disease without esophagitis K21.9 Esophagitis presence: without esophagitis Degeneration of intervertebral disc of lumbar region with discogenic back pain M51.360 Disc-related pain type: discogenic back pain only Degenerative disc disease, cervical M50.30 Age-related osteoporosis without current pathological fracture M81.0 Osteoporosis type: age-related Presence of current pathological fracture: without current pathological fracture Insomnia, unspecified type G47.00 Insomnia type: unspecified Anxiety F41.9 ASCUS with positive high risk HPV cervical R87.610; R87.810 Additional Codes PHQ-9 - 58106 - PHQ-9 Billing: Yes ([id number]) Assessment & Plan Assessment & Plan (1) Pure hypercholesterolemia: Code(s): E78.00 - Pure hypercholesterolemia, unspecified Category: Medical Plan: Results of her labs done last week reviewed and discussed with patient Reinforced low cholesterol diet Continue Atorvastatin 20 mg QD Will recheck her labs and fasting lipids in 4 months for follow up (2) Impaired fasting glucose: Code(s): R73.01 - Impaired fasting glucose Category: Medical Plan: Her HgbA1c was at 5.9% on her labs done last week; was at 6.0% a few months ago Reinforced low carb/low calorie diet (3) GERD (gastroesophageal reflux disease): Code(s): K21.9 - Gastro-esophageal reflux disease without esophagitis Category: Medical Qualifiers: Esophagitis presence: without esophagitis Qualified Code(s): K21.9 - Gastro-esophageal reflux disease without esophagitis Plan: Dietary restrictions reinforced Continue Omeprazole 20 mg QD (4) Lumbar degenerative disc disease: Code(s): M51.36 - Other intervertebral disc degeneration, lumbar region Category: Medical Qualifiers: Disc-related pain type: discogenic back pain only Qualified Code(s): M51.360 - Other intervertebral disc degeneration, lumbar region with discogenic back pain only Plan: Reinforced activity and weight-lifting restrictions (5) Degenerative disc disease, cervical: Code(s): M50.30 - Other cervical disc degeneration, unspecified cervical region Category: Medical Plan: States that her neck pain has been mostly manageable and she continues to do neck exercises and stretching that she was taught from physical therapy in the past regularly (6) Osteoporosis: Comment: S/P Tx with Alendronate x 5 years Code(s): M81.0 - Age-related osteoporosis without current pathological fracture Category: Medical Qualifiers: Osteoporosis type: age-related Presence of current pathological fracture: without current pathological fracture Qualified Code(s): M81.0 - Age- related osteoporosis without current pathological fracture Plan: S/P Tx with Alendronate x 5 years Fall precautions and weight-lifting precautions reinforced Patient is encouraged to continue with her oral vitamin-D and calcium supplements daily and also to stay active and exercise regularly Repeat BMD done on 10/15/21 revealed (+) osteoporosis based on the lowest T-score value of -2.8 in the lumbar spine. This is mostly unchanged from her BMD on 09/24/2018 and in March 2016 but she is cautioned that her lumbar spine BMD has declined by about 8% from previous Her most recent BMD done on 08/09/2024 revealed NO significant change from her previous BMD (7) Insomnia: Code(s): G47.00 - Insomnia, unspecified Category: Medical Qualifiers: Insomnia type: unspecified Qualified Code(s): G47.00 - Insomnia, unspecified Plan: Sleep hygiene reinforced She takes Trazodone 50 mg or OTC Melatonin 3 mg Q HS PRN (8) Anxiety: Code(s): F41.9 - Anxiety disorder, unspecified Category: Medical Plan: Patient feels that her anxiety is currently still manageable and does not wish to take any Rx as much as possible (9) ASCUS with positive high risk HPV cervical: Code(s): R87.610 - Atypical squamous cells of undetermined significance on cytologic sme ar of cervix (ASC-US); R87.810 - Cervical high risk human papillomavirus (HPV) DNA test positive Category: Medical Plan: S/P colposcopy with Dr. Mack a couple of weeks ago on 08/18/2024 and she will continue to follow up with gynecology regularly for management of this issue Plan Follow up in 4 months Orders: Orders Comprehensive [place]. Panel Fast 4 Months E78.00 - Pure hypercholesterolemia, unspecified Lipid Panel 4 Months E78.00 - Pure hypercholesterolemia, unspecified UA CC w/rflx Micro + Cult 4 Months R30.0 - Dysuria Hemoglobin A1c 4 Months R73.01 - Impaired fasting glucose Complete Blood Count Auto Diff 4 Months D64.9 - Anemia, unspecified Medications: Refilled atorvastatin 20 mg PO DAILY 90 days 90 tabs 1RF omeprazole 20 mg PO DAILY 90 days 90 caps 1RF trazodone 50 mg PO BEDTIME PRN 30 tabs 1RF sleep
--- OUTSIDE RECORDS SUMMARY | 2024-08-31 10:30 | XMS_ITS | Encounter Summary ---
Author Organization [facility] Address [address] [place] [address] Care Team Providers Care Bilingual Operator Name Role Phone Breanna Nobles MD Primary Care Provider Emma Phillips Ch MD Primary Care Provider [phone] [facility], Pcp Primary Care Provider Unavailabl e Reason for Referral * EXTERNAL (Routine) - Authorized/Booked Specialty Diagnoses / Procedures Referred By Hugo butler Referred To Contact Physical Therapy Diagnoses Adhesive capsulitis of left shoulder Procedures REFERRAL TO PHYSICAL THERAPY Breanna Nobles MD [address] [place] [id number] External Phys Thrpy Referral ID Status Reason Start Date Expiration Date V isits Requested Visits Authorized SEE NOTE Authorized/B ooked 09/12/2019 12/14/2019 1 1 Reason for Visit * Reason Onset Date Comments REFERRAL 09/12/2019 Encounter Details Date Type Department Care Team Description 09/12/2019 Telephone Medicine/Pediatrics - [address] [id number] Breanna Nobles MD REFERRAL Social History Tobacco [...] signed, thanks * Telephone Encounter - Helen Dnio - 09/12/2019 10:23 AM EDT Please review this patients new referral request. The referral has been pended. Please complete thefollowing: If approved> sign order If denied>please give instructions and route to your practice nursing pool. Practice nurse should inform referrals and the patient if denied. Subscriber: VANE HITCHCOCK Submitter : BREANNA NOBLES Submitter Type: Provider Member ID: [id number] : 1955 Referral (#[id number]) HMO MULTIPLE VISIT REFERRAL THE FIRST VISIT MUST OCCUR WITHIN 90 DAYS BALANCE WITHIN 1 YEAR OF EFFECTIVE DATE Specialty Care Review Type: Initial Certification Status : Certified in total Place Of Service : Office Visits : 8 Issue : 09/12/2019 Expiration : 12/10/2019 Service Providers Provider Name ID Provider Type AT PH[facility]ICAL [facility]Y [facility] NPI : [id number] Service Provider * Telephone Encounter - Katherine Roberts - 09/12/2019 10:01 AM EDT What insurance does the patient have today? Payor: [employer] - MEDICARE / Plan: MEDICARE FFS $5 [id number] / Product Type: MEDICARE [id number] Effective 01/25/09: BCBS will not retro referral [...] insurance must be obtained and registered in [facility] or their referral can not [...] specialty: Patient saw dr. nobles at [facility] for the problem and was [...] Is this visit:Initial Visit Address of Specialist: [address] [place] [address] Phone # of Specialist: [phone] Fax #: (if applicable): [phone] Does patient have an appointment scheduled?: YES Date of appointment- (including a retro-request): August Is this appointment related to: Not MVA, WC or Surgery related Requesting 8 visits documented in this encounter Plan of Treatment Not on file documented as of this encounter Visit Diagnoses Diagnosis Adhesive capsulitis of left shoulder- Primary Adhesive capsulitis of shoulder documented in this encounter Care Teams Bilingual Operator Relationship Specialty Start Date End Date Breanna Nobles MD PCP - General Internal Medicine 04/29/19 09/24/20 Alesha Phillips MD [address] [place] [address] PCP - General Internal Medicine 09/25/20 10/17/21 [facility], [facility] [address] [place] [address] PCP - General Internal Medicine 10/18/21 documented as of this encounter
--- OUTSIDE RECORDS SUMMARY | 2024-08-31 10:30 | XMS_ITS | Clinical Summary ---
Author Organization [employer] Address [address] [facility] [address] [place] [address] Care Team Providers Care Cheese Weigher Name Role Phone Unavailable Primary Care Provider [...]
--- OUTSIDE RECORDS SUMMARY | 2024-08-31 10:30 | XMS_ITS | Encounter Summary ---
Author Organization [facility] Address [address] [place] [address] Care Team Providers Care Shellfish Bed Worker Name Role Phone Anuel Parks MD Primary Care Provider Emma Phillips Ch MD Primary Care Provider [phone] [facility], Pcp Primary Care Provider Unavailabl e Encounter Details Date Type Department Care Team Description 09/06/2019 Telephone Medicine/Pediatrics [address] [phone] Anuel Parks MD Social History Tobacco Use [...] on filedocumented in this encounter Care Teams Shellfish Bed Worker Relationship Specialty Start Date End Date Anuel Parks MD PCP - General Internal Medicine 04/29/19 09/24/20 Alesha Phillips MD [address] [place] [address] PCP - General Internal Medicine 09/25/20 10/17/21 [facility], Pcp [address] [place] [address] PCP - General Internal Medicine 10/18/21 documented as of this encounter
--- OUTSIDE RECORDS SUMMARY | 2024-08-31 10:30 | XMS_ITS | Encounter Summary ---
Author Organization [facility] Address [address] [place] [address] Care Team Providers Care Publicity Expert Name Role Phone Anuel Parks MD Primary Care Provider Emma Phillips Ch MD Primary Care Provider [phone] [facility], Pcp Primary Care Provider Unavailabl e Encounter Details Date Type Department Care Team Description 06/27/2019 Orders Only CUSTOMER SUCCESS REPRESENTATIVE - [address] [address] Kaye Hendrickson CNM [address] [place], [place] [id number] Social History Tobacco Use Types Packs/Day Years [...] on filedocumented in this encounter Care Teams Publicity Expert Relationship Specialty Start Date End Date Anuel Parks MD PCP - General Internal Medicine 04/29/19 09/24/20 Alesha Phillips MD [address] [place] [address] PCP - General Internal Medicine 09/25/20 10/17/21 [facility] P[facility] [address] [place] [address] PCP - General Internal Medicine 10/18/21 documented as of this encounter
--- OUTSIDE RECORDS SUMMARY | 2024-08-31 10:30 | XMS_ITS | Encounter Summary ---
Author Organization [employer] Address [address] [facility] [address] [place] [address] Care Team Providers Care Chiropractic Neurologist Name Role Phone Unavailable Primary Care Provider Unavailabl e Encounter Details Date Type Department Care Team (Latest Contact Info) Description 07/13/2018 Abstract [facility] CONVERSIONS Dental, Provider, DDS Social History Tobacco [...]
--- OUTSIDE RECORDS SUMMARY | 2024-08-31 10:30 | XMS_ITS | Encounter Summary ---
Author Organization [facility] Address [address] [place] [address] Care Team Providers Care Supplier Quality Specialist Name Role Phone Anuel Parks MD Primary Care Provider Emma Phillips Ch MD Primary Care Provider [phone] [facility], Pcp Primary Care Provider Unavailabl e Encounter Details Date Type Department Care Team Description 08/05/2019 Transfer Records Medical Records [address] [place] [id number] [place] [address] Social History Tobacco Use Types Packs/Day Years [...] on filedocumented in this encounter Care Teams Supplier Quality Specialist Relationship Specialty Start Date End Date Anuel Parks MD PCP - General Internal Medicine 04/29/19 09/24/20 Alesha Phillips MD [address] [place] [address] PCP - General Internal Medicine 09/25/20 10/17/21 [facility], Anita [address] [place] [address] PCP - General Internal Medicine 10/18/21 documented as of this encounter
--- OUTSIDE RECORDS SUMMARY | 2024-08-31 10:30 | XMS_ITS | Encounter Summary ---
Author Organization [facility] Address [address] [place] [address] Care Team Providers Care Roadway Engineer Name Role Phone Anuel Parks MD Primary Care Provider Emma Phillips Ch MD Primary Care Provider [phone] [facility], Pcp Primary Care Provider Unavailabl e Encounter Details Date Type Department Care Team Description 06/06/2019 Release of Information Medical Records [address] [place] [id number] Abstract, Provider Social History Tobacco Use Types [...] on filedocumented in this encounter Care Teams Roadway Engineer Relationship Specialty Start Date End Date Anuel Parks MD PCP - General Internal Medicine 04/29/19 09/24/20 Alesha Phillips, [address] [place] [address] PCP - General Internal Medicine 09/25/20 10/17/21 Anita Reyes [address] [place] [address] PCP - General Internal Medicine 10/18/21 documented as of this encounter
== END 2024-08-31 10:27 | disposition home or self-care (01) ==
LOC: HO.HMCH 09:38
PROVIDERS: PCP Internal Medicine; Visit Provider Internal Medicine
DX: E78.00 Pure hypercholesterolemia, unspecified (principal); R73.01 Impaired fasting glucose; K21.9 Gastro-esophageal reflux disease without esophagitis; M51.360 Other intervertebral disc degeneration, lumbar region with discogenic back pain only; M50.30 Other cervical disc degeneration, unspecified cervical region; M81.0 Age-related osteoporosis without current pathological fracture; G47.00 Insomnia, unspecified; F41.9 Anxiety disorder, unspecified; R87.610 Atypical squamous cells of undetermined significance on cytologic smear of cervix (ASC-US); R87.810 Cervical high risk human papillomavirus (HPV) DNA test positive

== ENCOUNTER → 2024-08-31 09:37 | Outpatient (BNVA) | payer MEDICARE, SELFPAY | PROVIDERS: PCP Internal Medicine; Visit Provider Internal Medicine | DX: E78.00 Pure hypercholesterolemia, unspecified (principal); R73.01 Impaired fasting glucose; K21.9 Gastro-esophageal reflux disease without esophagitis; M51.360 Other intervertebral disc degeneration, lumbar region with discogenic back pain only; M50.30 Other cervical disc degeneration, unspecified cervical region; M81.0 Age-related osteoporosis without current pathological fracture; G47.00 Insomnia, unspecified; F41.9 Anxiety disorder, unspecified; R87.610 Atypical squamous cells of undetermined significance on cytologic smear of cervix (ASC-US); R87.810 Cervical high risk human papillomavirus (HPV) DNA test positive; Z79.899 Other long term (current) drug therapy | CPT/HCPCS: 96127; 99212 ==

== ENCOUNTER 2024-09-06 12:00 | Outpatient (AMB) | payer MEDICARE, SELFPAY ==
[2024-09-06 12:02] VITALS: BMI 20.7
--- NOTE | 2024-09-06 12:02 | A.OFFVIS_ITS ---
Vital Signs 09/06/24 12:02 Height 5 ft 3 in Weight 117 lb BMI 20.7 Intake Visit Reasons: colpo results Head Transfer Clerk Required: No Information Interpreted: non-clinical & clinical Accompanied by: Self / Same As Patient Allergies No Known Allergies [No Known Allergies*] Allergy (Verified 09/06/24 12:03) Post menopausal: Yes HPI Comments Details: Presenting post colpo for follow-up. The patient is doing well with no com plaints. The pathology showed the following: A. Endocervix, curettage: No tissue present. B. Cervix, 5 o'clock, biopsy: Inflamed squamous and endocervical mucosa with reactive changes and atrophy. C. Cervix, 6 o'clock, biopsy: Inflamed squamous and endocervical mucosa with reactive changes and atrophy. D. Cervix, 7 o'clock, biopsy: Denuded mildly inflamed endocervical and squamous mucosa with reactive changes and atrophy. E. Cervix, 9 o'clock, biopsy: Mildly inflamed and atrophic squamous mucosa with reactive changes; endocervical epithelium within normal limits. COMMENT: The findings are concordant with the patient's recent Pap/cytology specimen ([id number]; ASCUS with positive HR HPV) - slide reviewed [facility] Medical History Depression Insomnia Osteoporosis Degenerative disc disease, cervical Lumbar degenerative disc disease GERD (gastroesophageal reflux disease) Pure hypercholesterolemia Surgical History History of colonoscopy (~10/06/18) History of vaginal surgery Social History Housing: House Alcohol intake: current Alcohol intake frequency: holidays/special occasions only Alcohol type: wine Patient Tobacco Use Status: Never used Tobacco e-Cigarette/Vaping Use: Never Used Second Hand Smoke Exposure: No service: No Current occupational status: employed Cognitive needs: No Hearing needs: No Vision needs: No Review of Systems Const All systems reviewed & are unremarkable except as noted in HPI and below Reports as per HPI and Reports no additional complaints GI Reports no additional complaints Reports no additional complaints Physical Exam Vital Signs: BMI result Body Mass Index 20.7 Assessment & Plan Assessment & Plan (1) ASCUS with positive high risk HPV cervical: Code(s): R87.610 - Atypical squamous cells of undetermined significance on cytologic smear of cervix (ASC-US); R87.810 - Cervical high risk human papillomavirus (HPV) DNA test positive Category: Medical Plan: Discussed with the patient the pathology results of the colposcopy biopsies & endocervical curettage including the fact that ECC tissues were not prepped. Discussed with the patient the sensitivity specificity, positive and negative predictive value in detecting cervical cancer in addition discussed the regression, persistence and progression rates. Recommended co-testing in 12 months, if cytology and or HPV are abnormal will proceed was colposcopy biopsy and endocervical curettage. Instructions given to the patient to schedule a co test appointment in 1 year. All questions answered the patient verbalized understanding. Coding Level of Care Code Est Pt Level 3 (14876) Diagnoses ASCUS with positive high risk HPV cervical R87.610; R87.810
--- OUTSIDE RECORDS SUMMARY | 2024-09-06 13:21 | XMS_ITS | Clinical Summary ---
Author Organization [employer] Address [address] [facility] [address] [place] [address] Care Team Providers Care Potato Chip Sacking Machine Operator Name Role Phone Unavailable Primary Care Provider [...]
--- OUTSIDE RECORDS SUMMARY | 2024-09-06 13:21 | XMS_ITS | Encounter Summary ---
Author Organization [employer] Address [address] [facility] [address] [place] [address] Care Team Providers Care Software Project Lead Name Role Phone Unavailable Primary Care Provider Unavailabl e Encounter Details Date Type Department Care Team (Latest Contact Info) Description 07/13/2018 Abstract [facility] CONVERSIONS Dental, Provider, DDS Social History [...]
== END 2024-09-06 12:29 | disposition home or self-care (01) ==
LOC: HO.HWS 12:00
PROVIDERS: PCP Internal Medicine; Visit Provider Obstetrics & Gynecology
DX: R87.610 Atypical squamous cells of undetermined significance on cytologic smear of cervix (ASC-US) (principal); R87.810 Cervical high risk human papillomavirus (HPV) DNA test positive
CPT/HCPCS: 99213

== ENCOUNTER → 2024-09-06 12:00 | Outpatient (BNVA) | payer MEDICARE, SELFPAY | PROVIDERS: PCP Internal Medicine; Visit Provider Obstetrics & Gynecology | DX: R87.610 Atypical squamous cells of undetermined significance on cytologic smear of cervix (ASC-US) (principal); R87.810 Cervical high risk human papillomavirus (HPV) DNA test positive | CPT/HCPCS: 99212 ==

== ENCOUNTER 2024-11-22 11:16 | Emergency (ER) | payer MEDICARE, SELFPAY ==
[2024-11-22 11:28] VITALS: BP 126/79; PULSE 90; RESP 18; TEMP 36.6; O2SAT 98; BMI 20.4
--- NOTE | 2024-11-22 11:28 | ED_ITS ---
HPI - Wound/Laceration General Chief Complaint: Wound/Laceration Stated Complaint: Forehead lac Time Seen by Provider: 11/22/24 12:40 Source: patient, RN notes reviewed and old records reviewed Mode of arrival: ambulatory Limitations: no limitations History of Present Illness ED Provider: Carmella PAGE narrative: 69-year-old female presents for evaluation of a laceration on the nasal bridge She was wearing sunglasses indoors and walked into a sliding glass door Laceration is approximately 1 cm in diameter She has scant bleeding from the wound. No loss of consciousness, the patient also denies dizziness, blurry vision, vomiting No history of anticoagulant use The patient complains of mild right-sided neck pain Denies any numbness, tingling. Related Data Previous Rx's ?Medication ?Instructions ?Recorded atorvastatin 20 mg tablet 20 mg PO DAILY 90 days #90 t abs 08/31/24 omeprazole 20 mg capsule,delayed 20 mg PO DAILY 90 day s #90 caps 08/31/24 release trazodone 50 mg tablet 50 mg PO BEDTIME PRN sleep # 30 tabs 08/31/24 Allergies Allergy/AdvReac Type Severity Reaction Status Date / Time No Known Allergies (No Known Allergy Verified 11/22/24 11:30 Allergies*) Review of Systems Eyes: Eyes: Denies blurry vision, Denies change in vision and Denies loss of vision ENT: Denies dizziness and Reports neck pain Musculoskeletal: Musculoskeletal: Reports neck pain Neurologic: Denies dizziness and Denies loss of vision PMFSH Past Medical History Medical History Depression Insomnia Osteoporosis Degenerative disc disease, cervical Lumbar degenerative disc disease GERD (gastroesophageal reflux disease) Pure hypercholesterolemia Surgical History History of colonoscopy (~10/06/18) History of vaginal surgery Social History Social History Housing: House Alcohol intake: current Alcohol intake frequency: holidays/special occasions only Alcohol type: wine Patient Tobacco Use Status: Never used Tobacco e-Cigarette/Vaping Use: Never Used Second Hand Smoke Exposure: No Advance Directives: No Advance Directives Information Provided: Yes Do you have a plan to hurt others: No Plan service: No Current occupational status: employed Cognitive needs: No Hearing needs: No Vision needs: No Physical Exam Vital Signs: Vital Signs: Last Vital Signs Temp 98 F 11/22/24 11:28 Pulse 90 11/22/24 11:28 Resp 18 11/22/24 11:28 BP 126/79 11/22/24 11:28 Pulse Ox 98 11/22/24 11:28 O2 Del Method Room Air 11/22/24 11:28 BMI result Body Mass Index 20.4 Const: General: comfortable, no acute distress, alert, awake and Physically active Orientation/consciousness: patient oriented x3 HEENT: Other: There is an approximately 4 mm linear laceration to the nasal bridge slightly to the right side. There is a small, superficial abrasion to the right side of the nose Eyes: Other: No palpable deformities or step-offs to the orbits bilaterally Alignment and Position: alignment normal Periorbital: periorbital findings abnormal Eyelids: Yes eyelids normal Conjunctivae: conjunctivae normal Sclerae: sclerae normal Corneas: corneas normal Pupils: Equal, round and reactive pupils present EOM: EOMs intact bilaterally Back/Spine/Pelvis: Other: No C-spine tenderness. The patient has some mild right-sided cervical paraspinous muscle tenderness. Neuro: General: patient oriented x3 Cranial nerves: Yes CN's II-XII intact bilaterally, Yes Equal, round and reactive pupils present, Yes Bilaterally intact EOM present and Yes Nystagmus not present Motor exam (neuro): 5/5 motor strength present throughout Course Course Course Narrative: This is an RME performed by Norm Saleh CNP: Additional HPI, ROS, PE not included below will be deferred to primary provider. Patient is a 69-year-old presents emergency department for evaluation. She reports that she was wearing sunglasses and accidentally walked into a door, sustaining a laceration to the forehead between the brows. No active bleeding, no use of violence or known coagulation. No LOC. 0.5cm laceration to forehead Medical Decision Making Medical Decision Making MDM Narrative: 69-year-old female presents for evaluation of a small laceration to the bridge of her nose. This was sustained as she was wearing sunglasses and walked into a glass door. It seems that the sunglasses themselves are responsible for the patient's laceration. This was a low mechanism injury, there is no evidence to suggest nasal fracture, orbital fracture or significant intracranial hemorrhage or calvarial fracture. The patient's wound was cleaned and closed with Dermabond skin glue. The patient has no neuro deficits, no headache. She does have some mild right-sided neck pain, no C-spine tenderness, I have a low suspicion for cervical fracture. The patient can be discharged with symptomatic care Differential Diagnosis Differential Diagnoses: The differential diagnosis associated with the presentation includes Laceration Skin tear Puncture wound Facial injury Tests considered The following testing was considered but not selected: Consider CT scan of the head, C-spine and facial bones but ultimately felt as though this was a low mechanism injury and low suspicion for significant traumatic injury Discharge Plan Discharge Clinical Impression: Facial laceration Patient Disposition: Home, Self-Care Instructions: Laceration (ED) Additional Instructions: You had the skin glue applied to close your wound. This will keep the wound sealed and cleaned. I recommend that you do not shower today but starting tomorrow, you may continue your normal routine Use ibuprofen or Tylenol for any pain. You may apply ice to the swollen area. I would not be surprised if you developed a bruise below your right eye tomorrow Follow-up with your primary doctor, return for new or worsening symptoms Prescriptions: No Action atorvastatin 20 mg tablet 20 mg PO DAILY 90 Days Qty: 90 1RF omeprazole 20 mg capsule,delayed release(DR/EC) 20 mg PO DAILY 90 Days Qty: 90 1RF trazodone 50 mg tablet 50 mg PO BEDTIME PRN (Reason: sleep) Qty: 30 1RF Print Language: Telugu
[2024-11-22 13:36] VITALS: BP 126/79; PULSE 90; RESP 18; TEMP 36.6; O2SAT 98
--- OUTSIDE RECORDS SUMMARY | 2024-11-22 13:43 | XMS_ITS | Encounter Summary ---
Author Organization [facility] Address [address] [place] [address] Care Team Providers Care Media Theorist And Author Of Name Role Phone Anuel Parks MD Primary Care Provider Emma Phillips Ch MD Primary Care Provider [phone] [facility], Pcp Primary Care Provider Unavailabl e Encounter Details Date Type Department Care Team Description 06/27/2019 Orders Only [facility] - [address] [address] Kaye Hendrickson CNM [address] [place], [place] [id number] Social History Tobacco Use Types Packs/Day Years [...] on filedocumented in this encounter Care Teams Media Theorist And Author Of Relationship Specialty Start Date End Date Anuel Parks MD PCP - General Internal Medicine 04/29/19 09/24/20 Alesha Phillips MD [address] [place] [address] PCP - General Internal Medicine 09/25/20 10/17/21 [facility], Pcp [address] [place] [address] PCP - General Internal Medicine 10/18/21 documented as of this encounter
--- OUTSIDE RECORDS SUMMARY | 2024-11-22 13:44 | XMS_ITS | Patient Health Record ---
Author Organization [facility] Address [address] [place] [address] Care Team Providers Care Financial Writer Name Role Phone Tristan ROSA, Rick Primary Care Provider Truman Freeman Jr Unavailable Reason For Referral No Information Medications Medication SIG (Take, Route, Frequency, Duration) Notes Start Date End Date Status Vitamin D3 1000 UNIT 1 tablet Orally thr ee times a day Active Colyte with Flavor Packs 240 GM As directed Orally Over the specified time. for 1 day(s) 07/14/2018 Active Iron 325 (65 Fe) MG 1 tablet Orally Once a day for 30 day(s) Active Vitamin C 500 MG as directed Orally Active traZODone HCl 100 MG 1 tablet at bedtime Orally Once a day/as needed Active Alendronate Sodium MG 1 tablet Orally on ce a week Active Calcium 1200 mg 1 tablet Orally Once a day Active Immunizations Vaccine Route Administration Date Status Comme nts Influenza Unknown 03/03/2018 Administered Social History Tobacco Use: Social History Observation Description Date Details (start date - stop date) Never Smoker NA - NA Tobacco Use/Smoking Question Answer Notes Patient is a nonsmoker Alcohol Screen Question Answer Notes Did you have a drink containing alcohol in the p ast year? No Points 0 Interpretation Negative Problems Problem Type SNOMED Code ICD Code Onset Dates Problem Status W/U Status Risk Notes Problem [id number] Colon cancer screening (Z12.11) Active confirmed Problem [id number] Long-term curren t use of high risk medication other than anticoagulant (Z79.899) Active confirmed Plan Of Treatment Future Test Test Name Order Date COLONOSCOPY 07/14/2018 Insurance Providers Payer Name Payer Address Payer Phone Subscriber Number Group Number Insured Name Patient Relationship to Insured Coverage Start Date Coverage End Date [facility] [address] [place] [address] [id number] VANE HITCHCOCK Self - patient is the insured Medical (General) History Medical History History ICD Code osteopenia insomnia Surgical History Surgery Date(Month/Year)
== END 2024-11-22 13:36 | disposition home or self-care (01) ==
PROVIDERS: Emergency Provider Emergency Medicine; PCP Internal Medicine
DX: S01.21XA Laceration without foreign body of nose, initial encounter (principal); W22.09XA Striking against other stationary object, initial encounter; Y93.89 Activity, other specified; Y92.018 Other place in single-family (private) house as the place of occurrence of the external cause; Y99.9 Unspecified external cause status
CPT/HCPCS: 12011; 99283

== ENCOUNTER 2024-11-24 11:10 | Outpatient (REF) | payer MEDICARE, SELFPAY ==
--- OUTSIDE RECORDS SUMMARY | 2024-11-24 12:03 | XMS_ITS | Encounter Summary ---
Author Organization [facility] Address [address] [place] [address] Care Team Providers Care Client Care Coordinator Name Role Phone Anuel Parks MD Primary Care Provider Emma Phillips Ch MD Primary Care Provider [phone] [facility], Pcp Primary Care Provider Unavailabl e Encounter Details Date Type Department Care Team Description 06/27/2019 Orders Only RADIOLOGY INTERVENTIONAL PHYSICIAN - [address] [address] Kaye Hendrickson CNM [address] [place], [place] [id number] Social History Tobacco Use Types Packs/Day Years [...] on filedocumented in this encounter Care Teams Client Care Coordinator Relationship Specialty Start Date End Date Anuel Parks MD PCP - General Internal Medicine 04/29/19 09/24/20 Alesha Phillips MD [address] [place] [address] PCP - General Internal Medicine 09/25/20 10/17/21 [facility], Pcp [address] [place] [address] PCP - General Internal Medicine 10/18/21 documented as of this encounter
--- OUTSIDE RECORDS SUMMARY | 2024-11-24 12:03 | XMS_ITS | Encounter Summary ---
Author Organization [employer] Address [address] [facility] 7t [place] [address] Care Team Providers Care Audio/Video Technician Name Role Phone Unavailable Primary Care Provider Unavailabl e Encounter Details Date Type Department Care Team (Latest Contact Info) Description 07/13/2018 Abstract [facility] CONVERSIONS Dental, Provider, DDS Social History [...]
--- OUTSIDE RECORDS SUMMARY | 2024-11-24 12:03 | XMS_ITS | Patient Health Record ---
Author Organization [facility] Address [address] [place] [address] Care Team Providers Care Drug Coordinator Name Role Phone Tristan ROSA, Rick Primary [...] Problem Status W/U Status Risk Notes Problem [id number] Colon cancer screening (Z12.11) Active confirmed Problem [id number] Long-term curren t use of high risk medication other than anticoagulant (Z79.899) Active confirmed Plan Of Treatment Future Test Test Name Order Date COLONOSCOPY 07/14/2018 Insurance Providers Payer Name Payer Address Payer Phone Subscriber Number Group Number Insured Name Patient Relationship to Insured Coverage Start Date Coverage End Date [facility] [address] [place] [address] [id number] VANE HITCHCOCK Self - patient is the insured Medical (General) History Medical History History ICD Code osteopenia insomnia Surgical History Surgery Date(Month/Year)
== END 2024-11-24 11:11 | disposition home or self-care (01) ==
LOC: HO.MAMMO 11:10
PROVIDERS: PCP Internal Medicine; Visit Provider Internal Medicine
DX: Z12.31 Encounter for screening mammogram for malignant neoplasm of breast (principal)
CPT/HCPCS: 77063; 77067

== ENCOUNTER → 2024-11-24 12:00 | Outpatient (BNV) | payer MEDICARE, SELFPAY | PROVIDERS: PCP Internal Medicine; Visit Provider Internal Medicine | DX: Z12.31 Encounter for screening mammogram for malignant neoplasm of breast (principal) | CPT/HCPCS: 77063; 77067 ==

== ENCOUNTER 2025-01-03 07:48 | Outpatient (REF) | payer MEDICARE, SELFPAY ==
--- OUTSIDE RECORDS SUMMARY | 2025-01-03 07:51 | XMS_ITS | Clinical Summary ---
Author Organization [employer] Address [address] [facility] 7t [place] [address] Care Team Providers Care Thermospray Operator Name Role Phone Unavailable Primary Care [...] COVID-19 Vaccine ( - 2023-2 5 season) 2024 Influenza Vaccine (#1) 2024 RSV Patients and Pa tients Aged 60 [...] patient's age to complete this topic Meningococcal B Vaccine Aged Out No l onger eligible based on patient's age to complete [...]
--- OUTSIDE RECORDS SUMMARY | 2025-01-03 07:51 | XMS_ITS | Encounter Summary ---
Author Organization [employer] Address [address] [facility] 7t [place] [address] Care Team Providers Care Occupational Health Nurse Supervisor Name Role Phone Unavailable Primary Care Provider Unavailabl e Encounter Details Date Type Department Care Team (Latest Contact Info) Description 07/13/2018 Abstract [facility] CONVERSIONS Dental, Provider, DDS Social [...]
--- OUTSIDE RECORDS SUMMARY | 2025-01-03 07:51 | XMS_ITS | Encounter Summary ---
Author Organization [facility] Address [address] [place] [address] Care Team Providers Care Quarry Extraction Worker Name Role Phone [facility], Pcp Primary Care Provider Unavailabl e Reason for Visit * Reason Comments E-prescribe Rx Request Encounter Details Date Type Department Care Team Description 10/23/2021 Refill Adult Medicine - [address] [place] [address] Alesha Phillips MD [address] [place] [address] E-prescribe Rx Request Social History Tobacco Use [...] on filedocumented in this encounter Care Teams Quarry Extraction Worker Relationship Specialty Start Date End Date [facility], Pcp PCP - General Internal Medicine 10/18/21 documented as of this encounter
--- OUTSIDE RECORDS SUMMARY | 2025-01-03 07:51 | XMS_ITS | Encounter Summary ---
Author Organization [facility] Address [address] [place] [address] Care Team Providers Care Windows Server Architect Name Role Phone Anuel Parks MD Primary Care Provider Emma Phillips Ch MD Primary Care Provider [phone] [facility], Pcp [facility] Encounter Details Date Type Department Care Team Description 05/23/2019 Release of Information Medical Records [address] [place] [id number] Abstract, Provider Social History Tobacco Use Types [...] EST AUTHORIZATION TO OBTAIN RECORDS MAILED TO [facility]. documented in this encounter Plan of Treatment Not on file documented as of this encounter Visit Diagnoses Not on filedocumented in this encounter Care Teams Windows Server Architect Relationship Specialty Start Date End Date Anuel Parks MD PCP - General Internal Medicine 04/29/19 09/24/20 Alesha Phillips MD [address] [place] [address] PCP - General Internal Medicine 09/25/20 10/17/21 [facility], Pcp [address] [place], [place] PCP - General Internal Medicine 10/18/21 documented as of this encounter
--- OUTSIDE RECORDS SUMMARY | 2025-01-03 07:51 | XMS_ITS | Clinical Summary ---
Author Organization [facility] Address [address] [place] [address] Care Team Providers Care Supervisor Loading Name Role Phone [facility], Pcp Primary Care [...] Pap smear 0 06/27/2019 Overview: History: Per [facility], will request records and schedule colpo Colposcopy 07/19/2019: No disease seen on the cervix; biopsy not taken. 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 Overview: Will use valtrex periodically Immunizations Name Administration Dates Next Due COVID-19 (Plan B Acqusitions) Pt Reported 08/15/2020, 021 Influenza vaccine high [...] 73 11/12/2020 3:39 PM EDT Temperature 36 C (96.8 F) 11/12/2020 3:39 PM EDT Respiratory Rate 14 [...] 12/2018, 01/23/2018, Additional history exists Covid-19 Vaccine (3 - 2022-2 4 season) 2024 08/15/2020, 07/24/2020 INFLUENZA (#1) 2024 01/25/2020 CHOLESTEROL SCREENING 02/26/2025 02/27/2020, 020 DTAP/TDAP/TD (2 - Td or Tdap) 03/28/2026 03/28/2016 Care Teams Supervisor Loading Relationship Specialty Start Date End Date Community, Pcp PCP - General Internal Medicine 10/18/21
--- OUTSIDE RECORDS SUMMARY | 2025-01-03 07:51 | XMS_ITS | Encounter Summary ---
Author Organization [facility] Address [address] [place] [address] Care Team Providers Care Conservation Or Heritage Architect Name Role Phone Anuel Parks MD Primary Care Provider Emma Phillips Ch MD Primary Care Provider [phone] [facility], Pcp Primary Care Provider Unavailabl e Encounter Details Date Type Department Care Team Description 08/05/2019 Transfer Records Medical Records [address] [place] [id number] [place] [address] Social History Tobacco Use Types Packs/Day Years [...] on filedocumented in this encounter Care Teams Conservation Or Heritage Architect Relationship Specialty Start Date End Date Anuel Parks MD PCP - General Internal Medicine 04/29/19 09/24/20 Alesha Pihllips MD [address] [place] [address] PCP - General Internal Medicine 09/25/20 10/17/21 [facility], Anita [address] [place] [address] PCP - General Internal Medicine 10/18/21 documented as of this encounter
--- OUTSIDE RECORDS SUMMARY | 2025-01-03 07:51 | XMS_ITS | Encounter Summary ---
Author Organization [facility] Address [address] [place] [address] Care Team Providers Care Compliance Review Officer Name Role Phone Anuel Parks MD Primary Care Provider Emma Phillips Ch MD Primary Care Provider [phone] [facility], Pcp Primary Care Provider Unavailabl e Encounter Details Date Type Department Care Team Description 06/06/2019 Release of Information Medical Records [address] [place] [id number] Abstract, Provider Social History Tobacco Use Types [...] on filedocumented in this encounter Care Teams Compliance Review Officer Relationship Specialty Start Date End Date Anuel Parks MD PCP - General Internal Medicine 04/29/19 09/24/20 Alesha Phillips, [address] [place] [address] PCP - General Internal Medicine 09/25/20 10/17/21 Anita Reyes [address] [place] [address] PCP - General Internal Medicine 10/18/21 documented as of this encounter
--- OUTSIDE RECORDS SUMMARY | 2025-01-03 07:51 | XMS_ITS | Encounter Summary ---
Author Organization [facility] Address [address] [place] [address] Care Team Providers Care Heating Element Repairer Name Role Phone Anuel Parks MD Primary Care Provider Emma Phillips Ch MD Primary Care Provider [phone] [facility], Pcp Primary Care Provider Unavailabl e Encounter Details Date Type Department Care Team Description 09/06/2019 Telephone Medicine/Pediatrics [address] [id number] Anuel Parks MD Social History Tobacco Use [...] on filedocumented in this encounter Care Teams Heating Element Repairer Relationship Specialty Start Date End Date Anuel Parks MD PCP - General Internal Medicine 04/29/19 09/24/20 Alesha Phillips MD [address] [place] [address] PCP - General Internal Medicine 09/25/20 10/17/21 [facility], Pcp [address] [place] [address] PCP - General Internal Medicine 10/18/21 documented as of this encounter
--- OUTSIDE RECORDS SUMMARY | 2025-01-03 07:51 | XMS_ITS | Patient Health Record ---
Author Organization [facility] Address [address] [place] [address] Care Team Providers Care Worldwide Chief Creative Officer Name Role Phone Tristan ROSA, Rick Primary Care Provider Truman Freeman Jr Unavailable [phone] Reason For Referral No Information Medications Medication [...] Problem Status W/U Status Risk Notes Problem [id number] Colon cancer screening (Z12.11) Active confirmed Problem 401034000 Long-term curren t use of high risk medication other than anticoagulant (Z79.899) Active confirmed Plan Of Treatment Future Test Test Name Order Date COLONOSCOPY 07/14/2018 Insurance Providers Payer Name Payer Address Payer Phone Subscriber Number Group Number Insured Name Patient Relationship to Insured Coverage Start Date Coverage End Date [facility] [address] [place] [address] [id number] VANE HITCHCOCK Self - patient is the insured Medical (General) History Medical History History ICD Code osteopenia insomnia Surgical History Surgery Date(Month/Year)
[2025-01-03 08:03] LABS: MANUAL DIFF FLAG NO
[2025-01-03 08:50] LABS: Hematocrit 36.2 % (37.0-47.0); Hemoglobin 12.3 g/dl (12.0-16.0); Imm Gran Abs Auto 0.01 X10*3/uL (0.00-0.03); Imm Gran Pct Auto 0.2 % (0.0-0.4); Lymphocytes Absolute Auto 2.3 X10*3/uL (1.2-4.9); Mean Corpuscular HGB Conc 34.0 g/dl (31.0-35.0); Mean Corpuscular Hemoglobin 31.5 pg (27.0-33.0); Mean Corpuscular Volume 92.8 fL (80.0-98.0); NRBC Abs Auto 0.000 X10*3/uL (0.0-0.012); NRBC Pct Auto 0.0 /100WBC (0.0-0.2); Platelet Count 264 X10*3/uL (160-400); Red Blood Count 3.90 X10*6/uL (4.20-5.50); White Blood Count 5.5 X10*3/uL (4.8-10.8)
[2025-01-03 09:00] LABS: Hemoglobin A1C 135.8174 umol/L; Total Hemoglobin (HGBA1C) 3253.4945 umol/L
[2025-01-03 09:21] LABS: Appearance Urine Clear; Glucose Urine UA Negative (Negative); PH 6.0 (5.0-9.0); Specific Gravity - Urine <= 1.005 (1.005-1.025)
[2025-01-03 09:21] LABS: Alanine Aminotransferase 22 U/L (0-31); Albumin Level 4.4 g/dL (3.5-5.0); Alkaline Phosphatase 80 U/L (39-117); Anion Gap 12 (12-20); Aspartate Amino Transferase 26 U/L (5-31); Blood Urea Nitrogen 19 mg/dL (9-16); Calcium 9.1 mg/dL (8.4-10.2); Carbon Dioxide 27 mmol/L (22-29); Chloride 105 mmol/L (96-108); Cholesterol 189 mg/dL (<200); Estimated Glomerular Filt Rate > 60; HDL Cholesterol 63 mg/dL (>40); Potassium 3.9 mmol/L (3.3-5.1); Sodium 140 mmol/L (135-145); Total Protein 7.3 g/dL (6.5-8.0); Triglycerides 115 mg/dL (<150)
[2025-01-03 09:22] LABS: UMIC TRIGGER UACC YES
== END 2025-01-03 07:49 | disposition home or self-care (01) ==
LOC: HO.LAB 07:48
PROVIDERS: PCP Internal Medicine; Visit Provider Internal Medicine
DX: E78.00 Pure hypercholesterolemia, unspecified (principal); R73.01 Impaired fasting glucose; D64.9 Anemia, unspecified; R30.0 Dysuria
CPT/HCPCS: 36415; 80053; 80061; 81001; 81003; 83036; 85025

== ENCOUNTER 2025-01-06 13:51 | Outpatient (AMB) | payer MEDICARE, SELFPAY ==
[2025-01-06 13:56] VITALS: BP 118/80; PULSE 88; O2SAT 98; BMI 20.6
--- NOTE | 2025-01-06 13:56 | MHC.PC.OV ---
Vital Signs 01/06/25 13:56 Height 5 ft 3 in Weight 116 lb 4 oz BMI 20.6 BP 118/80 Blood Pressure Location Lt brachial Position Sitting Pulse 88 Pulse Source Pulse Oximeter Pulse Oximetry (%) 98 Oxygen Delivery Method Room Air Intake Visit Reasons: hyperlipidemia, GERD, osteoporosis Pediatric Dental Hygienist Required: No Accompanied by: Self / Same As Patient Allergies No Known Allergies (No Known Allergies*) Allergy (Verified 01/06/25 14:12) Medication List - Last Reconciled 01/06/25 by Rick Hudson MD atorvastatin 20 mg PO DAILY 90 days omeprazole 20 mg PO DAILY 90 days trazodone 50 mg PO BEDTIME PRN Tobacco use date assessed: 01/06/25 Fall risk assessment: No Falls in past year Last assessed Fall Risk: 01/06/25 Dental Screening Dental Screen Date: 01/06/25 Did you have a dental visit in the last 12 months?: Yes Did you have a dental problem in the last 6 months where you did not have access to dental care?: No Was dental information given to patient?: Patient has dentist HPI hyperlipidemia, GERD, osteoporosis HPI Details Patient comes in today for her follow up visit States that she feels okay She denies any headaches or dizziness Denies any chest pains, no SOB No nausea/vomiting, no abdominal pain No change in bowel habits noted She had her follow up labs done a few days ago - to discuss her results [facility] Medical History Depression Insomnia Osteoporosis Degenerative disc disease, cervical Lumbar degenerative disc disease GERD (gastroesophageal reflux disease) Pure hypercholesterolemia Surgical History History of colonoscopy (~10/06/18) History of vaginal surgery Social History Housing: House Alcohol intake: current Alcohol intake frequency: holidays/special occasions only Alcohol type: wine Patient Tobacco Use Status: Never used Tobacco e-Cigarette/Vaping Use: Never Used Second Hand Smoke Exposure: No service: No Current occupational status: employed Cognitive needs: No Hearing needs: No Vision needs: No Questionnaire PHQ-9 Over the last 2 weeks, how often have you been bothered by any of the following problems? 1. Little interest or pleasure in doing things: not at all 2. Feeling down, depressed, or hopeless: several days 3. Trouble falling or staying asleep, or sleeping too much: nearly every day 4. Feeling tired or having little energy: not at all 5. Poor appetite or overeating: not at all 6. Feeling bad about yourself - or that you are a failure or have let yourself or your family down: several days 7. Trouble concentrating on things, such as reading the newspaper or watching television: not at all 8. Moving or speaking so slowly that other people could have noticed. Or the opposite - being so fidgety or restless that you have been moving around a lot more than usual: not at all 9. Thoughts that you would be better off or of hurting yourself in some way: not at all Total score: 5 Depression Screening Interpretation: Positive Depression Screening Follow-up: Existing condition and Follow-up Visit Requested Depression Screening Done: Yes Source: Developed by Drs. Ignacio Cloud, Bess Owen, Ottoniel Cardona and colleagues, with an educational demian from [employer]. Thrive Questionnaire Date Thrive assessed: 01/06/25 I am a: Patient What is your living situation today?: I have a steady place to live Within the past 12 months, did the food you bought not last and you didn't have the money to get more?: Never true Within the past 12 months, did you worry whether your food would run out before you got money to buy more?: Never true Do you have trouble paying for medicines?: No Do you have trouble getting transportation to medical appointments?: No Do you have trouble paying your heating and electricity bill?: No Do you have trouble taking care of your child, family member or friend?: Yes Do you have trouble with day-to-day activities such as bathing, preparing meals, shopping, managing finances, etc.?: No Are you currently unemployed and looking for a job?: Yes Are you interested in more education?: No Please select the resources that you would like help with: None Currently or been in a relationship where the following occur: I choose not to answer THRIVE Score: 0 AUDIT C Alcohol Use Questionnaire (AUDIT-C) 1. How often do you have a drink containing alcohol?: Monthly or less 2. How many drinks containing alcohol do you have on a typical day when you are drinking?: 1 or 2 3. How often do you have six or more drinks on one occasion?: Never Total Score: 1 Score Reviewed/Action Taken: Yes LOR-7 AMB Questionnaire LOR-7 Date LOR - 7 assessed: 01/06/25 Feeling nervous, anxious, or on edge: 1 = Several days Not being able to stop or control worryin = Several days Worrying too much about different things: 0 = Not at all Trouble relaxin = Several days Being so restless that it is hard to sit still: 0 = Not at all Becoming easily annoyed or irritable: 0 = Not at all Feeling afraid as if something awful might happen: 0 = Not at all Total LOR-7 score (0-4 normal; 5-9 mild; 10-14 moderate; 15-21 severe): 3 Source: Developed by Drs. Ignacio Cloud, Bess Owen, Ottoniel Cardona and colleagues, with an educational demian from [employer]. Review of Systems Const Denies chills, Denies fatigue, Denies fever(s) and Denies headache(s) ENT Denies dysphagia, Denies dizziness, Denies otalgia, Denies headache(s), Denies neck pain, Denies odynophagia and Denies sore throat Card Denies chest pain, Denies irregular heart rhythm, Denies palpitations and Denies dyspnea Resp Denies chest congestion, Denies cough and Denies dyspnea GI Denies abdominal pain, Denies constipation, Denies dysphagia, Denies heartburn, Denies diarrhea, Denies nausea, Denies odynophagia and Denies vomiting Denies difficulty voiding, Denies nocturia, Denies dysuria and Denies urinary urgency Musc Reports back pain (on and off) and Denies neck pain Skin/Breast Denies rash Neuro Denies dizziness and Denies headache(s) Endo Denies fatigue and Denies palpitations Physical exam (Primary Care) Vital Signs: Last Vital Signs Pulse 88 01/06/25 13:56 BP 118/80 01/06/25 13:56 Pulse Ox 98 01/06/25 13:56 Oxygen Delivery Method Room Air 01/06/25 13:56 BMI result Body Mass Index 20.6 Tobacco/Smoking Status: Tobacco use Status Tobacco use date assessed 01/06/25 01/06/25 14:04 Patient Tobacco Use Status Never used Tobacco 01/06/25 14:04 e-Cigarette/Vaping Use Never Used 01/06/25 14:04 PHQ-9: PHQ-9 Score PHQ-9: Total score 5 01/06/25 14:04 Depression Screening Interpretation: Positive Depression Screening Follow-up: Existing condition and Follow-up Visit Requested Thrive Assessment: Date of Thrive Assessment Date Thrive assessed 01/06/25 01/06/25 14:04 Currently or been in a relationship where the following occur: I choose not to answer Const General: no acute distress and alert HENMT Ears: TM's normal bilaterally and EAC's normal Throat: Yes posterior oropharynx normal and Yes tonsils normal (no TP congestion noted) Neck Neck: Yes supple and No lymphadenopathy Thyroid: Thyroid normal Carotids: no bruits Resp Auscultation: clear to auscultation bilaterally, no rales and no wheezes Cardio Rate: regular rate Rhythm: regular rhythm Heart sounds: no murmurs GI Palpation (GI): Soft to palpation and nontender Auscultation: normal bowel sounds General: Yes no CVA tenderness Back/Spine/Pelvis Back: no CVA tenderness Cervical Spine: Cervical spine tenderness Thoracic/Lumbar Spine: lumbar spinal tenderness (mild) Skin Rashes: no rashes Extrem General: Yes no clubbing, cyanosis or edema Results Reviewed Results Reviewed: Laboratory Tests 01/03/25 01/03/25 07:56 07:57 WBC 5.5 Hgb 12.3 Hct 36.2 L Plt Count 264 Sodium 140 Potassium 3.9 Creatinine 0.81 Estimated GFR > 60 Fasting Glucose 96 Hemoglobin A1c % 6.0 Calcium 9.1 AST 26 ALT 22 Triglycerides 115 Cholesterol 189 LDL Cholesterol, Calc 103 H HDL Cholesterol 63 Ur Specific Corrigan <= 1.005 Urine Protein Negative Urine Glucose (UA) Negative Urine Blood Trace H Urine Nitrite Negative Ur Leukocyte Esterase Trace H Coding Level of Care Code Est Pt Level 4 (71514) Diagnoses Pure hypercholesterolemia E78.00 Impaired fasting glucose R73.01 Gastroesophageal reflux disease without esophagitis K21.9 Esophagitis presence: without esophagitis Degeneration of intervertebral disc of lumbar region with discogenic back pain M51.360 Disc-related pain type: discogenic back pain only Degenerative disc disease, cervical M50.30 Age-related osteoporosis without current pathological fracture M81.0 Osteoporosis type: age-related Presence of current pathological fracture: without current pathological fracture Insomnia, unspecified type G47.00 Insomnia type: unspecified Anxiety F41.9 ASCUS with positive high risk HPV cervical R87.610; R87.810 Assessment & Plan Assessment & Plan (1) Pure hypercholesterolemia: Code(s): E78.00 - Pure hypercholesterolemia, unspecified Category: Medical Plan: Results of her labs done a few days ago reviewed and discussed with patient Reinforced low cholesterol diet Continue Atorvastatin 20 mg QD Will recheck her labs and fasting lipids in 4 months for follow up (2) Impaired fasting glucose: Code(s): R73.01 - Impaired fasting glucose Category: Medical Plan: Her HgbA1c was at 6.0% on her labs done a few days ago; was previously at 5.9% a few months ago Her FBS was normal at 96 mg/dl on her recent labs Reinforced low carb/low calorie diet (3) GERD (gastroesophageal reflux disease): Code(s): K21.9 - Gastro-esophageal reflux disease without esophagitis Category: Medical Qualifiers: Esophagitis presence: without esophagitis Qualified Code(s): K21.9 - Gastro-esophageal reflux disease without esophagitis Plan: Dietary restrictions reinforced Continue Omeprazole 20 mg QD (4) Lumbar degenerative disc disease: Code(s): M51.36 - Other intervertebral disc degeneration, lumbar region Category: Medical Qualifiers: Disc-related pain type: discogenic back pain only Qualified Code(s): M51.360 - Other intervertebral disc degeneration, lumbar region with discogenic back pain only Plan: Reinforced activity and weight-lifting restrictions to avoid aggravating her lower back symptoms (5) Degenerative disc disease, cervical: Code(s): M50.30 - Other cervical disc degeneration, unspecified cervical region Category: Medical Plan: Patient states that her neck pain has been mostly manageable and she continues to do her neck exercises and stretching that she was taught from physical therapy in the past on a regular basis (6) Osteoporosis: Comment: S/P Tx with Alendronate x 5 years Code(s): M81.0 - Age-related osteoporosis without current pathological fracture Category: Medical Qualifiers: Osteoporosis type: age-related Presence of current pathological fracture: without current pathological fracture Qualified Code(s): M81.0 - Age-related osteoporosis without current pathological fracture Plan: S/P Tx with Alendronate x 5 years Fall precautions and weight-lifting precautions reinforced Patient is encouraged to continue with her oral vitamin-D and calcium supplements daily and also to stay active and exercise regularly Repeat BMD done on 10/15/21 revealed (+) osteoporosis based on the lowest T-score value of -2.8 in the lumbar spine. This is mostly unchanged from her BMD on 09/24/2018 and in March 2016 but she is cautioned that her lumbar spine BMD has declined by about 8% from previous Her most recent BMD done on 08/09/2024 revealed NO significant change from her previous BMD (7) Insomnia: Code(s): G47.00 - Insomnia, unspecified Category: Medical Qualifiers: Insomnia type: unspecified Qualified Code(s): G47.00 - Insomnia, unspecified Plan: Sleep hygiene reinforced She takes Trazodone 50 mg or OTC Melatonin 3 mg Q HS PRN (8) Anxiety: Code(s): F41.9 - Anxiety disorder, unspecified Category: Medical Plan: Patient feels that her anxiety is currently still manageable and does not wish to take any Rx as much as possible (9) ASCUS with positive high risk HPV cervical: Code(s): R87.610 - Atypical squamous cells of undetermined significance on cytologic smear of cervix (ASC-US); R87.810 - Cervical high risk human papillomavirus (HPV) DNA test positive Category: Medical Plan: S/P colposcopy with Dr. Mack back on 08/18/2024 and she will continue to follow up with gynecology regularly for management of this issue Plan Follow up in 4 months Orders: Orders Comprehensive [place]. Panel Fast 4 Months E78.00 - Pure hypercholesterolemia, unspecified UA CC w/rflx Micro + Cult 4 Months R30.0 - Dysuria Hemoglobin A1c 4 Months R73.01 - Impaired fasting glucose TSH reflex Free T4 4 Months E78.00 - Pure hypercholesterolemia, unspecified Complete Blood Count Auto Diff 4 Months D64.9 - Anemia, unspecified Lipid Panel 4 Months E78.00 - Pure hypercholesterolemia, unspecified Vitamin D 25-OH Total 4 Months E55.9 - Vitamin D deficiency, unspecified
--- OUTSIDE RECORDS SUMMARY | 2025-01-06 16:45 | XMS_ITS | Encounter Summary ---
Author Organization [employer] Address [address] [facility] [address] [place] [address] Care Team Providers Care Global Logistics Analyst Name Role Phone Unavailable Primary Care Provider Unavailabl e Encounter Details Date Type Department Care Team (Latest Contact Info) Description 07/13/2018 Abstract [facility] CONVERSIONS Dental, Provider, DDS Social History Tobacco [...]
--- OUTSIDE RECORDS SUMMARY | 2025-01-06 16:45 | XMS_ITS | Patient Health Record ---
Author Organization [facility] Address [address] [place] [address] Care Team Providers Care Executive Administrator Name Role Phone Tristan ROSA, Rick Primary [...] Problem Status W/U Status Risk Notes Problem [id number] Colon cancer screening (Z12.11) Active confirmed Problem [id number] Long-term curren t use of high risk medication other than anticoagulant (Z79.899) Active confirmed Plan Of Treatment Future Test Test Name Order Date COLONOSCOPY 07/14/2018 Insurance Providers Payer Name Payer Address Payer Phone Subscriber Number Group Number Insured Name Patient Relationship to Insured Coverage Start Date Coverage End Date [facility] [address] [place] [phone] [id number] VANE [employer] Self - patient is the insured Medical (General) History Medical History History ICD Code osteopenia insomnia Surgical History Surgery Date(Month/Year)
--- OUTSIDE RECORDS SUMMARY | 2025-01-06 16:45 | XMS_ITS | Clinical Summary ---
Author Organization [employer] Address [address] [facility] [address] [place] [address] Care Team Providers Care Adoption Coordinator Name Role Phone Unavailable Primary Care Provider [...]
== END 2025-01-06 14:27 | disposition home or self-care (01) ==
LOC: HO.HMCH 13:51
PROVIDERS: PCP Internal Medicine; Visit Provider Internal Medicine
DX: E78.00 Pure hypercholesterolemia, unspecified (principal); R73.01 Impaired fasting glucose; K21.9 Gastro-esophageal reflux disease without esophagitis; M51.360 Other intervertebral disc degeneration, lumbar region with discogenic back pain only; M50.30 Other cervical disc degeneration, unspecified cervical region; M81.0 Age-related osteoporosis without current pathological fracture; G47.00 Insomnia, unspecified; F41.9 Anxiety disorder, unspecified; R87.610 Atypical squamous cells of undetermined significance on cytologic smear of cervix (ASC-US); R87.810 Cervical high risk human papillomavirus (HPV) DNA test positive

== ENCOUNTER → 2025-01-06 13:51 | Outpatient (BNVA) | payer MEDICARE, SELFPAY | PROVIDERS: PCP Internal Medicine; Visit Provider Internal Medicine | DX: M51.360 Other intervertebral disc degeneration, lumbar region with discogenic back pain only (principal); E78.00 Pure hypercholesterolemia, unspecified; R73.01 Impaired fasting glucose; K21.9 Gastro-esophageal reflux disease without esophagitis; M50.30 Other cervical disc degeneration, unspecified cervical region; M81.0 Age-related osteoporosis without current pathological fracture; G47.00 Insomnia, unspecified; F41.9 Anxiety disorder, unspecified; R30.0 Dysuria; E55.9 Vitamin D deficiency, unspecified | CPT/HCPCS: 96127; 99212 ==